=== PATIENT | male | born 1945 | race Caucasian/White ===

== ENCOUNTER → 2016-11-07 | Outpatient (REF) | payer MEDICARE, MEDICAID ==
[2016-11-07 13:27] LABS: BASO % 0.7 % (0.0-1.0); EOS # 0.2 K/mm3 (0.0-0.50); LARGE UNSTAINED CELL # 0.2 K/mm3 (0.0-0.4); LARGE UNSTAINED CELL % 2.2 % (0.0-4.0); LYMPH # 2.3 K/mm3 (1.5-4.5); LYMPH % 32.1 % (24.0-44.0); MEAN CORPUSCULAR HEMOGLOBIN 29.7 pg (27.0-33.0); MEAN CORPUSCULAR HGB CONC 34.4 g/dl (32.0-36.5); MEAN CORPUSCULAR VOLUME 86.4 fl (80.0-96.0); MONO # 0.6 K/mm3 (0.0-0.8); MONO % 7.7 % (0.0-5.0); NEUTROPHILS # 3.9 K/mm3 (1.8-7.7); NEUTROPHILS % 54.3 % (36.0-66.0); PLATELET COUNT, AUTOMATED 239 k/mm3 (150-450); RED CELL DISTRIBUTION WIDTH 12.8 % (11.5-14.5); WHITE BLOOD COUNT 7.1 K/mm3 (4.0-10.0)
[2016-11-07 13:41] LABS: ALBUMIN 3.8 GM/DL (3.2-5.2); ALBUMIN/GLOBULIN RATIO 1.31 (1.00-1.93); BILIRUBIN,TOTAL 0.5 MG/DL (0.2-1.0); CALCIUM LEVEL 9.3 MG/DL (8.8-10.2); CREATININE FOR GFR 1.46 MG/DL (0.70-1.30); GLOMERULAR FILTRATION RATE 50.4 (>42); POTASSIUM SERUM 4.4 MEQ/L (3.5-5.1); TOTAL PROTEIN 6.7 GM/DL (6.4-8.2)
== END ==
LOC: M SFHCADAM 09:07
PROVIDERS: ATTEND Physician Assistant Medical
DX: E11.9 Type 2 diabetes mellitus without complications (principal)

== ENCOUNTER 2017-01-13 16:14 | Emergency (ER) | payer MEDICARE, MEDICAID ==
[~2017-01-13] VITALS: Ht 175.3 cm; Wt 103.9 kg
[2017-01-13 16:15] VITALS: BP 157/69
[2017-01-13] MEDS ORDERED: LYRI75CA (16:27)
[2017-01-13] MEDS ORDERED: METF500T (16:27)
[2017-01-13] MEDS ORDERED: CARV12.5 (16:27)
[2017-01-13] MEDS ORDERED: VITA10002 (16:27)
[2017-01-13] MEDS ORDERED: ADVAIR (16:27)
[2017-01-13] MEDS ORDERED: MONT10TA2 (16:27)
[2017-01-13] MEDS ORDERED: COMBAER6 (16:27)
[2017-01-13] MEDS ORDERED: JANU100T (16:27)
[2017-01-13] MEDS ORDERED: OMEP20CA3 (16:27)
[2017-01-13] MEDS ORDERED: VITA50003 (16:27)
[2017-01-13] MEDS ORDERED: FENO145T (16:27)
[2017-01-13] MEDS ORDERED: FERR325T (16:27)
[2017-01-13] MEDS ORDERED: CETI10TA (16:27)
[2017-01-13] MEDS ORDERED: SIMV40TA2 (16:27)
[2017-01-13] MEDS ORDERED: GLIP10TA13 (16:27)
[2017-01-13] MEDS ORDERED: DIGO0.12 (16:27)
[2017-01-13] MEDS ORDERED: FURO40TA2 (16:27)
[2017-01-13] MEDS ORDERED: NITROFURANTOIN (MACROBID) 100 MG CAP As Ordered ONE (17:38)
[2017-01-13] MEDS ORDERED: PYRI200T5 PO (17:39)
[2017-01-13] MEDS ORDERED: MACR100C3 PO (17:39)
[2017-01-13] MEDS ORDERED: PHENAZOPYRIDINE 100 MG TAB PO ONE (17:45)
[2017-01-13] MEDS ORDERED: NITROFURANTOIN (MACROBID) 100 MG CAP PO ONE (17:45)
== END 2017-01-13 17:47 | disposition home or self-care (01) ==
LOC: M ED 16:54
DX: N39.0 Urinary tract infection, site not specified (principal); R31.9 Hematuria, unspecified; I10 Essential (primary) hypertension; I25.10 Atherosclerotic heart disease of native coronary artery without angina pectoris; E78.00 Pure hypercholesterolemia, unspecified; K43.9 Ventral hernia without obstruction or gangrene; E66.9 Obesity, unspecified; Z95.1 Presence of aortocoronary bypass graft; Z87.891 Personal history of nicotine dependence; Z79.899 Other long term (current) drug therapy; Z79.84 Long term (current) use of oral hypoglycemic drugs; Z79.51 Long term (current) use of inhaled steroids

== ENCOUNTER → 2017-03-14 | Outpatient (REF) | payer MEDICARE, MEDICAID ==
[~2017-03-14] MED LIST: ADVAIR; CARV12.5; CETI10TA; COMBAER6; DIGO0.12; FENO145T; FERR325T; FURO40TA2; GLIP10TA13; JANU100T; LYRI75CA; MACR100C3 PO; METF500T; MONT10TA2; OMEP20CA3; PYRI200T5 PO; SIMV40TA2; VITA10002; VITA50003
[2017-03-14 12:39] LABS: FOLATE 9.3 NG/ML; VITAMIN B12 LEVEL 623 PG/ML
[2017-03-14 12:48] LABS: ALBUMIN 3.3 GM/DL (3.2-5.2); ALKALINE PHOSPHATASE 53 U/L (45-117); ALT/SGPT 19 U/L (12-78); ANION GAP 9 MEQ/L (8-16); AST/SGOT 10 U/L (15-37); BILIRUBIN,TOTAL 0.6 MG/DL (0.2-1.0); BLOOD UREA NITROGEN 26 MG/DL (7-18); CALCIUM LEVEL 8.5 MG/DL (8.8-10.2); CARBON DIOXIDE LEVEL 29 MEQ/L (21-32); CHLORIDE LEVEL 100 MEQ/L (98-107); CHOLESTEROL LEVEL 236 MG/DL (<200); CREATININE FOR GFR 1.18 MG/DL (0.70-1.30); FREE T4 1.01 NG/DL (0.76-1.46); GLOMERULAR FILTRATION RATE > 60.0 (>42); GLUCOSE, FASTING 232 MG/DL (83-110); SODIUM LEVEL 138 MEQ/L (136-145); TOTAL PROTEIN 6.3 GM/DL (6.4-8.2); TRIGLYCERIDES LEVEL 285 MG/DL (<150)
== END ==
LOC: M SFHCADAM 07:41
PROVIDERS: ATTEND Physician Assistant Medical
DX: E11.9 Type 2 diabetes mellitus without complications (principal); E66.01 Morbid (severe) obesity due to excess calories; E55.9 Vitamin D deficiency, unspecified; E53.8 Deficiency of other specified B group vitamins; Z79.899 Other long term (current) drug therapy
CPT/HCPCS: 80053; 80061; 80162; 82043; 82306; 82607; 82746; 83036; 84439; 84443; G0463

== ENCOUNTER → 2017-07-24 | Outpatient (REF) | payer MEDICARE, MEDICAID ==
[~2017-07-24] MED LIST changes: +FERR1TAB8; -FERR325T; -GLIP10TA13; +GLIP1TAB51; -MACR100C3 PO; +MACR100C43 PO; -METF500T; +METF500T13; +PYRI1TAB5 PO; -PYRI200T5 PO; +VITA1CAP40; -VITA50003
[2017-07-24 20:27] LABS: BASO # 0.1 10^3/uL (0.0-0.2); BASO % 0.9 % (0.0-1.0); EOS # 0.4 10^3/uL (0.0-0.50); EOS % 4.2 % (0.0-3.0); IMMATURE GRANULOCYTE % 0.3 % (0-0); LYMPH # 2.7 10^3/uL (1.5-4.5); LYMPH % 29.3 % (24.0-44.0); MEAN CORPUSCULAR HEMOGLOBIN 29.8 pg (27.0-33.0); MEAN CORPUSCULAR HGB CONC 33.9 g/dl (32.0-36.5); MONO # 0.8 10^3/uL (0.0-0.8); MONO % 8.1 % (0.0-5.0); NEUTROPHILS # 5.3 10^3/uL (1.8-7.7); NEUTROPHILS % 57.2 % (36.0-66.0); PLATELET COUNT, AUTOMATED 209 10^3/uL (150-450); RED CELL DISTRIBUTION WIDTH 12.8 % (11.5-14.5); WHITE BLOOD COUNT 9.3 10^3/uL (4.0-10.0)
[2017-07-24 20:40] LABS: VITAMIN B12 LEVEL 1110 PG/ML
[2017-07-24 20:41] LABS: FOLATE 11.1 NG/ML
[2017-07-24 20:47] LABS: ALBUMIN 3.6 GM/DL (3.2-5.2); ALKALINE PHOSPHATASE 52 U/L (45-117); ALT/SGPT 29 U/L (12-78); ANION GAP 7 MEQ/L (8-16); AST/SGOT 13 U/L (15-37); BILIRUBIN,TOTAL 0.5 MG/DL (0.2-1.0); BLOOD UREA NITROGEN 23 MG/DL (7-18); CALCIUM LEVEL 9.2 MG/DL (8.8-10.2); CARBON DIOXIDE LEVEL 31 MEQ/L (21-32); CHLORIDE LEVEL 99 MEQ/L (98-107); CHOLESTEROL LEVEL 271 MG/DL (<200); CREATININE FOR GFR 1.33 MG/DL (0.70-1.30); FERRITIN 337 NG/ML (26-388); FREE T4 0.89 NG/DL (0.76-1.46); GLOMERULAR FILTRATION RATE 56.1 (>42); GLUCOSE, FASTING 322 MG/DL (83-110); MAGNESIUM LEVEL 1.9 MG/DL (1.8-2.4); PERCENT SATURATION 18.8 % (19.7-50.0); POTASSIUM SERUM 3.9 MEQ/L (3.5-5.1); SODIUM LEVEL 137 MEQ/L (136-145); TOTAL IRON BINDING CAPACITY 340 UG/DL (250-450); TOTAL PROTEIN 7.2 GM/DL (6.4-8.2); TRIGLYCERIDES LEVEL 422 MG/DL (<150)
== END ==
LOC: M SFHCADAM 13:40
PROVIDERS: ATTEND Physician Assistant Medical
DX: E11.9 Type 2 diabetes mellitus without complications (principal); E53.8 Deficiency of other specified B group vitamins; N18.3 Chronic kidney disease, stage 3 (moderate)

== ENCOUNTER → 2017-09-01 | Outpatient (REF) | payer MEDICARE, MEDICAID | LOC: M LAB REF 08:06 | PROVIDERS: ATTEND Physician Assistant | DX: J02.9 Acute pharyngitis, unspecified (principal) ==

== ENCOUNTER → 2017-10-30 | Outpatient (REF) | payer MEDICARE, OTHER, MEDICAID ==
[2017-10-30 21:40] LABS: ESTIMATED AVERAGE GLUCOSE 240 MG/DL (60-110)
[2017-10-30 21:43] LABS: ALBUMIN 3.9 GM/DL (3.2-5.2); ALBUMIN/GLOBULIN RATIO 1.18 (1.00-1.93); ALKALINE PHOSPHATASE 46 U/L (45-117); ALT/SGPT 26 U/L (12-78); ANION GAP 11 MEQ/L (8-16); AST/SGOT 18 U/L (7-37); BILIRUBIN,TOTAL 0.5 MG/DL (0.2-1.0); BLOOD UREA NITROGEN 29 MG/DL (7-18); CALCIUM LEVEL 9.2 MG/DL (8.8-10.2); CARBON DIOXIDE LEVEL 25 MEQ/L (21-32); CHLORIDE LEVEL 103 MEQ/L (98-107); CHOLESTEROL LEVEL 200 MG/DL (<200); CHOLESTEROL RISK RATIO 3.174 (<5); CREATININE FOR GFR 1.48 MG/DL (0.70-1.30); FERRITIN 338 NG/ML (26-388); GLOMERULAR FILTRATION RATE 49.5 (>42); GLUCOSE, FASTING 365 MG/DL (83-110); HDL CHOLESTEROL 63 MG/DL (>40); IRON (FE) 83 UG/DL (65-175); LDL CHOLESTEROL 105.4 MG/DL (<100); NON-HDL-C 137 MG/DL; PERCENT SATURATION 21.2 % (19.7-50.0); POTASSIUM SERUM 4.7 MEQ/L (3.5-5.1); SODIUM LEVEL 139 MEQ/L (136-145); TOTAL IRON BINDING CAPACITY 391 UG/DL (250-450); TOTAL PROTEIN 7.2 GM/DL (6.4-8.2); TRIGLYCERIDES LEVEL 158 MG/DL (<150)
[2017-10-30 21:48] LABS: BASO # 0.1 10^3/uL (0.0-0.2); BASO % 0.4 % (0.0-1.0); EOS # 0.1 10^3/uL (0.0-0.50); EOS % 0.6 % (0.0-3.0); HEMATOCRIT 42.4 % (42.0-52.0); HEMOGLOBIN 14.1 g/dl (14.0-18.0); IMMATURE GRANULOCYTE # 0.1 10^3/uL (0-0); IMMATURE GRANULOCYTE % 0.7 % (0-0); LYMPH # 1.8 10^3/uL (1.5-4.5); LYMPH % 14.6 % (24.0-44.0); MEAN CORPUSCULAR HEMOGLOBIN 29.5 pg (27.0-33.0); MEAN CORPUSCULAR HGB CONC 33.3 g/dl (32.0-36.5); MEAN CORPUSCULAR VOLUME 88.7 fl (80.0-96.0); MONO # 0.4 10^3/uL (0.0-0.8); MONO % 2.9 % (0.0-5.0); NEUTROPHILS # 9.9 10^3/uL (1.8-7.7); NEUTROPHILS % 80.8 % (36.0-66.0); PLATELET COUNT, AUTOMATED 282 10^3/uL (150-450); RED BLOOD COUNT 4.78 10^6/uL (4.30-6.10); RED CELL DISTRIBUTION WIDTH 13.1 % (11.5-14.5); WHITE BLOOD COUNT 12.2 10^3/uL (4.0-10.0)
[2017-10-30 22:03] LABS: CREATININE, URINE 26.3 MG/DL; MALB URINE SIEMENS 14.7 MG/L; MAU/CREAT RATIO 55.8 MCG/MG (0.0-30.0)
== END ==
LOC: M SFHCADAM 13:56
DX: E11.9 Type 2 diabetes mellitus without complications (principal); N18.3 Chronic kidney disease, stage 3 (moderate); D50.9 Iron deficiency anemia, unspecified
CPT/HCPCS: 83550

== ENCOUNTER → 2017-11-08 | Outpatient (REF) | payer OTHER ==
[2017-11-08 12:43] LABS: IRON (FE) 72 UG/DL (65-175)
== END ==
LOC: M SFHCADAM 09:59
DX: E11.22 Type 2 diabetes mellitus with diabetic chronic kidney disease (principal); N18.3 Chronic kidney disease, stage 3 (moderate); D50.9 Iron deficiency anemia, unspecified
CPT/HCPCS: 83540

== ENCOUNTER → 2018-03-09 | Outpatient (REF) | payer MEDICARE ==
[2018-03-09 12:58] LABS: ALBUMIN/GLOBULIN RATIO 1.43 (1.00-1.93); ALKALINE PHOSPHATASE 42 U/L (45-117); ALT/SGPT 24 U/L (12-78); ANION GAP 7 MEQ/L (8-16); AST/SGOT 17 U/L (7-37); BILIRUBIN,TOTAL 0.4 MG/DL (0.2-1.0); BLOOD UREA NITROGEN 35 MG/DL (7-18); CARBON DIOXIDE LEVEL 29 MEQ/L (21-32); CHLORIDE LEVEL 106 MEQ/L (98-107); CHOLESTEROL LEVEL 188 MG/DL (<200); CHOLESTEROL RISK RATIO 4.476 (<5); CREATININE FOR GFR 1.62 MG/DL (0.70-1.30); GLOMERULAR FILTRATION RATE 44.6 (>42); GLUCOSE, FASTING 157 MG/DL (70-100); HDL CHOLESTEROL 42 MG/DL (>40); NON-HDL-C 146 MG/DL; POTASSIUM SERUM 4.9 MEQ/L (3.5-5.1); SODIUM LEVEL 142 MEQ/L (136-145); TOTAL PROTEIN 6.8 GM/DL (6.4-8.2); TRIGLYCERIDES LEVEL 225 MG/DL (<150)
[2018-03-09 13:29] LABS: ESTIMATED AVERAGE GLUCOSE 192 MG/DL (60-110); HEMOGLOBIN A1c 8.3 %
== END ==
LOC: M SFHCADAM 09:02
DX: E11.9 Type 2 diabetes mellitus without complications (principal); E66.01 Morbid (severe) obesity due to excess calories
CPT/HCPCS: 80053

== ENCOUNTER → 2018-06-04 | Outpatient (REF) | payer MEDICARE ==
[2018-06-04 12:55] LABS: BASO # 0.1 10^3/uL (0.0-0.2); EOS # 0.4 10^3/uL (0.0-0.50); EOS % 4.9 % (0.0-3.0); HEMATOCRIT 40.9 % (42.0-52.0); HEMOGLOBIN 13.6 g/dl (13.5-17.5); IMMATURE GRANULOCYTE % 0.4 % (0-3.0); LYMPH # 2.8 10^3/uL (1.5-4.5); LYMPH % 35.7 % (24.0-44.0); MEAN CORPUSCULAR HEMOGLOBIN 29.5 pg (27.0-33.0); MEAN CORPUSCULAR HGB CONC 33.3 g/dl (32.0-36.5); MEAN CORPUSCULAR VOLUME 88.7 fl (80.0-96.0); MONO # 0.8 10^3/uL (0.0-0.8); MONO % 9.9 % (0.0-5.0); NEUTROPHILS # 3.7 10^3/uL (1.8-7.7); NEUTROPHILS % 48.1 % (36.0-66.0); PLATELET COUNT, AUTOMATED 259 10^3/uL (150-450); RED BLOOD COUNT 4.61 10^6/uL (4.30-6.10); RED CELL DISTRIBUTION WIDTH 13.1 % (11.5-14.5); WHITE BLOOD COUNT 7.8 10^3/uL (4.0-10.0)
[2018-06-04 13:40] LABS: TOTAL 25(OH) VITAMIN D 42.9 NG/ML (30.0-100.0)
[2018-06-04 16:24] LABS: ESTIMATED AVERAGE GLUCOSE 177 MG/DL (60-110); HEMOGLOBIN A1c 7.8 %
[2018-06-04 16:37] LABS: ALBUMIN 3.7 GM/DL (3.2-5.2); ALBUMIN/GLOBULIN RATIO 1.09 (1.00-1.93); ALKALINE PHOSPHATASE 39 U/L (45-117); ALT/SGPT 24 U/L (12-78); ANION GAP 8 MEQ/L (8-16); AST/SGOT 17 U/L (7-37); BILIRUBIN,TOTAL 0.4 MG/DL (0.2-1.0); BLOOD UREA NITROGEN 35 MG/DL (7-18); CALCIUM LEVEL 8.9 MG/DL (8.8-10.2); CARBON DIOXIDE LEVEL 28 MEQ/L (21-32); CHLORIDE LEVEL 105 MEQ/L (98-107); CHOLESTEROL LEVEL 214 MG/DL (<200); CHOLESTEROL RISK RATIO 5.095 (<5); CREATININE FOR GFR 1.98 MG/DL (0.70-1.30); FREE T4 0.96 NG/DL (0.76-1.46); GLOMERULAR FILTRATION RATE 35.4 (>42); GLUCOSE, FASTING 136 MG/DL (70-100); HDL CHOLESTEROL 42 MG/DL (>40); LDL CHOLESTEROL 106.8 MG/DL (<100); NON-HDL-C 172 MG/DL; POTASSIUM SERUM 4.3 MEQ/L (3.5-5.1); SODIUM LEVEL 141 MEQ/L (136-145); TOTAL PROTEIN 7.1 GM/DL (6.4-8.2); TRIGLYCERIDES LEVEL 326 MG/DL (<150)
== END ==
LOC: M SFHCADAM 10:01
DX: E53.8 Deficiency of other specified B group vitamins (principal); E78.4 Other hyperlipidemia; D50.9 Iron deficiency anemia, unspecified; E55.9 Vitamin D deficiency, unspecified; E11.22 Type 2 diabetes mellitus with diabetic chronic kidney disease
CPT/HCPCS: 84443

== ENCOUNTER → 2018-10-04 | Outpatient (REF) | payer MEDICARE ==
[2018-10-04 13:47] LABS: ALBUMIN 3.7 GM/DL (3.2-5.2); ALBUMIN/GLOBULIN RATIO 1.09 (1.00-1.93); ALKALINE PHOSPHATASE 48 U/L (45-117); ALT/SGPT 21 U/L (12-78); ANION GAP 5 MEQ/L (8-16); AST/SGOT 14 U/L (7-37); BILIRUBIN,TOTAL 0.5 MG/DL (0.2-1.0); BLOOD UREA NITROGEN 26 MG/DL (7-18); CALCIUM LEVEL 8.6 MG/DL (8.8-10.2); CARBON DIOXIDE LEVEL 31 MEQ/L (21-32); CHLORIDE LEVEL 102 MEQ/L (98-107); CHOLESTEROL LEVEL 196 MG/DL (<200); CREATININE FOR GFR 1.44 MG/DL (0.70-1.30); GLOMERULAR FILTRATION RATE 50.9 (>42); GLUCOSE, FASTING 226 MG/DL (70-100); HDL CHOLESTEROL 46 MG/DL (>40); LDL CHOLESTEROL 111 MG/DL (<100); NON-HDL-C 150 MG/DL; POTASSIUM SERUM 4.5 MEQ/L (3.5-5.1); SODIUM LEVEL 138 MEQ/L (136-145); TOTAL PROTEIN 7.1 GM/DL (6.4-8.2); TRIGLYCERIDES LEVEL 193 MG/DL (<150)
[2018-10-04 13:55] LABS: TOTAL 25(OH) VITAMIN D 37.8 NG/ML (30.0-100.0)
[2018-10-04 14:06] LABS: ESTIMATED AVERAGE GLUCOSE 171 MG/DL (60-110); HEMOGLOBIN A1c 7.6 %
== END ==
LOC: M SFHCADAM 11:10
DX: E11.22 Type 2 diabetes mellitus with diabetic chronic kidney disease (principal); N18.3 Chronic kidney disease, stage 3 (moderate); I50.32 Chronic diastolic (congestive) heart failure; E55.9 Vitamin D deficiency, unspecified
CPT/HCPCS: 80053

== ENCOUNTER → 2019-10-14 | Outpatient (REF) | payer MEDICARE ==
[~2019-10-14] MED LIST changes: +CYAN100049; -FENO145T; +FENO145T13; +GLIP10TA18; -GLIP1TAB51; +OMEP-172; -OMEP20CA3; -SIMV40TA2; +SIMV40TA20; -VITA10002; -VITA1CAP40; +VITA50005
[2019-10-14 13:44] LABS: BASO # 0.1 10^3/uL (0.0-0.2); BASO % 0.9 % (0.0-1.0); EOS # 0.2 10^3/uL (0.0-0.5); EOS % 2.6 % (0.0-3.0); HEMATOCRIT 39.6 % (42.0-52.0); HEMOGLOBIN 12.5 g/dl (13.5-17.5); LYMPH # 2.8 10^3/uL (1.5-5.0); LYMPH % 33.2 % (24.0-44.0); MEAN CORPUSCULAR HEMOGLOBIN 28.7 pg (27.0-33.0); MEAN CORPUSCULAR HGB CONC 31.6 g/dl (32.0-36.5); MEAN CORPUSCULAR VOLUME 90.8 fl (80.0-96.0); MONO # 0.9 10^3/uL (0.0-0.8); MONO % 11.2 % (0.0-5.0); NEUTROPHILS # 4.4 10^3/uL (1.5-8.5); NEUTROPHILS % 51.6 % (36.0-66.0); PLATELET COUNT, AUTOMATED 230 10^3/uL (150-450); RED BLOOD COUNT 4.36 10^6/uL (4.30-6.10); WHITE BLOOD COUNT 8.4 10^3/uL (4.0-10.0)
[2019-10-14 14:01] LABS: HEMOGLOBIN A1c 6.5 %
[2019-10-14 14:40] LABS: ALBUMIN 3.8 GM/DL (3.2-5.2); ALT/SGPT 17 U/L (12-78); BILIRUBIN,TOTAL 0.5 MG/DL (0.2-1.0); BLOOD UREA NITROGEN 42 MG/DL (7-18); CALCIUM LEVEL 9.1 MG/DL (8.8-10.2); CARBON DIOXIDE LEVEL 32 MEQ/L (21-32); CHLORIDE LEVEL 103 MEQ/L (98-107); CHOLESTEROL LEVEL 205 MG/DL (<200); CREATININE FOR GFR 1.71 MG/DL (0.70-1.30); FERRITIN 154 NG/ML (26-388); FOLATE > 24.0 NG/ML; FREE T4 0.94 NG/DL (0.76-1.46); GLOMERULAR FILTRATION RATE 41.6 (>42); GLUCOSE, FASTING 83 MG/DL (70-100); HDL CHOLESTEROL 48 MG/DL (>40); IRON (FE) 71 UG/DL (65-175); LDL CHOLESTEROL 121 MG/DL (<100); MAGNESIUM LEVEL 2.3 MG/DL (1.8-2.4); NON-HDL-C 157 MG/DL; PERCENT SATURATION 16.7 % (19.7-50.0); POTASSIUM SERUM 4.6 MEQ/L (3.5-5.1); SODIUM LEVEL 141 MEQ/L (136-145); TOTAL 25(OH) VITAMIN D 27.1 NG/ML (30.0-100.0); TOTAL IRON BINDING CAPACITY 425 UG/DL (250-450); TOTAL PROTEIN 7.1 GM/DL (6.4-8.2); TRIGLYCERIDES LEVEL 180 MG/DL (<150); VITAMIN B12 LEVEL 235 PG/ML
== END ==
LOC: M SFHCADAM 10:16
PROVIDERS: ATTEND Physician Assistant Medical
DX: E11.22 Type 2 diabetes mellitus with diabetic chronic kidney disease (principal); N18.3 Chronic kidney disease, stage 3 (moderate); E53.8 Deficiency of other specified B group vitamins; D50.9 Iron deficiency anemia, unspecified

== ENCOUNTER → 2019-10-21 | Outpatient (REF) | payer MEDICARE ==
[~2019-10-21] MED LIST changes: -FENO145T13; +FENO145T7; -OMEP-172; +OMEP1CAP73
[2019-10-21 20:02] LABS: CALCIUM LEVEL 8.8 MG/DL (8.8-10.2); CREATININE FOR GFR 1.45 MG/DL (0.70-1.30); GLOMERULAR FILTRATION RATE 50.4 (>42); POTASSIUM SERUM 5.5 MEQ/L (3.5-5.1)
== END ==
LOC: M SFHCADAM 15:02
PROVIDERS: ATTEND Physician Assistant Medical
DX: I50.9 Heart failure, unspecified (principal)
CPT/HCPCS: 80048; 83880; G0463

== ENCOUNTER → 2019-10-24 | Outpatient (REF) | payer MEDICARE ==
[~2019-10-24] MED LIST changes: +FENO145T13; -FENO145T7; +OMEP-172; -OMEP1CAP73
[2019-10-24 12:36] LABS: CREATININE FOR GFR 1.9 MG/DL (0.70-1.30); GLOMERULAR FILTRATION RATE 36.9 (>42); POTASSIUM SERUM 3.8 MEQ/L (3.5-5.1)
== END ==
LOC: M SFHCADAM 08:30
PROVIDERS: ATTEND Physician Assistant Medical
DX: I50.9 Heart failure, unspecified (principal)

== ENCOUNTER → 2019-11-06 | Outpatient (CLI) | payer MEDICARE ==
[~2019-11-06] MED LIST changes: -FENO145T13; +FENO145T7; -OMEP-172; +OMEP1CAP73
== END ==
LOC: M CARPUL 08:35
PROVIDERS: ATTEND Physician Assistant Medical
DX: I50.9 Heart failure, unspecified (principal)

== ENCOUNTER 2020-10-06 12:55 | Inpatient (IN) | payer MEDICARE ==
[~2020-10-06] VITALS: Ht 170.2 cm; Wt 109.1 kg
[~2020-10-06 12:55] MED LIST changes: -CARV12.5; +CARV12.5 PO; -CETI10TA; +CETI10TA PO; -COMBAER6; +COMBAER6 INH; -CYAN100049; +CYAN100049 PO; -DIGO0.12; +DIGO0.12 PO; -FENO145T7; +FENO145T7 PO; -FERR1TAB8; +FERR1TAB8 PO; -FURO40TA2; +FURO40TA2 PO; -GLIP10TA18; +GLIP10TA18 PO; -JANU100T; +JANU100T PO; -LYRI75CA; +LYRI75CA PO; -MONT10TA2; +MONT5TAB2 PO; -OMEP1CAP73; +OMEP1CAP73 PO; -SIMV40TA20; +SIMV40TA20 PO
[2020-10-06 13:59] LABS: BASO % 0.2 % (0.0-1.0); HEMATOCRIT 40.4 % (42.0-52.0); HEMOGLOBIN 13.1 g/dl (13.5-17.5); LYMPH # 1.1 10^3/uL (1.5-5.0); LYMPH % 24.1 % (24.0-44.0); MEAN CORPUSCULAR HEMOGLOBIN 27.8 pg (27.0-33.0); MEAN CORPUSCULAR HGB CONC 32.4 g/dl (32.0-36.5); MEAN CORPUSCULAR VOLUME 85.8 fl (80.0-96.0); MONO # 0.6 10^3/uL (0.0-0.8); MONO % 12.8 % (0.0-5.0); NEUTROPHILS # 2.8 10^3/uL (1.5-8.5); NEUTROPHILS % 62.5 % (36.0-66.0); PLATELET COUNT, AUTOMATED 207 10^3/uL (150-450); RED BLOOD COUNT 4.71 10^6/uL (4.30-6.10); WHITE BLOOD COUNT 4.5 10^3/uL (4.0-10.0)
[2020-10-06] MEDS ORDERED: methylPREDNISolone 125MG 2ML VIAL IV ONE (14:00)
[2020-10-06] MEDS ORDERED: ACETAMINOPHEN TAB 650MG DOSE (2X325MG) PO ONE (14:00)
[2020-10-06 14:22] LABS: ALBUMIN 3.3 GM/DL (3.2-5.2); ALT/SGPT 23 U/L (12-78); BILIRUBIN,TOTAL 0.5 MG/DL (0.2-1.0); BLOOD UREA NITROGEN 36 MG/DL (7-18); C REACTIVE PROTEIN QUANTITATIV 6.75 MG/DL (0.00-0.30); CARBON DIOXIDE LEVEL 29 MEQ/L (21-32); CHLORIDE LEVEL 100 MEQ/L (98-107); CK-MB VALUE MASS 1.4 NG/ML (<3.6); CPK CREATINE PHOSPHOKINASE 83 U/L (39-308); CREATININE FOR GFR 1.57 MG/DL (0.70-1.30); FERRITIN 456 NG/ML (26-388); GLOMERULAR FILTRATION RATE 45.8 (>42); GLUCOSE, FASTING 129 MG/DL (70-100); LDH LACTATE DEHYDROGENASE 225 U/L (87-241); MB/CK RELATIVE INDEX 1.69 (< OR =4); POTASSIUM SERUM 4.2 MEQ/L (3.5-5.1); SODIUM LEVEL 135 MEQ/L (136-145); TROPONIN I 0.07 NG/ML (< 0.10)
[2020-10-06] MEDS: COMBIVENT RESPIMAT 100-20MCG INHALER 4GM INH SCH ×3 (14:40→15:45)
[2020-10-06] MEDS ORDERED: ASPI81CH33 PO (15:04)
--- NOTE | 2020-10-06 15:24 | REP ---
INDICATION: Coronavirus workup. COMPARISON: PA and lateral chest dated 02/03/2014 and PA and lateral chest dated 04/05/2009. TECHNIQUE: Single AP view of the chest performed portably with the patient upright. FINDINGS: There are no focal infiltrates. There are no pleural effusions. The lung almaraz are otherwise clear and unchanged. Cardiac size is normal. There are sternotomy wires, unchanged. The jose, mediastinum, and skeletal structures are on remarkable. IMPRESSION: There are no acute cardiopulmonary findings. <Electronically signed by Brady Mazariegos > 10/06/20 [id number]
[2020-10-06] MEDS ORDERED: TIOT18INH INH (15:29)
[2020-10-06] MEDS ORDERED: REST0.05 OU (15:29)
[2020-10-06] MEDS ORDERED: METF10004 PO (15:29)
[2020-10-06] MEDS ORDERED: DIGO0.123 PO (15:29)
[2020-10-06] MEDS ORDERED: ASPI81TA27 PO (15:29)
[2020-10-06] MEDS ORDERED: BASA100I SC (15:29)
[2020-10-06] MEDS ORDERED: ADV500INH INH (15:29)
[2020-10-06] MEDS ORDERED: PATIENT COMMENT (15:31)
[2020-10-06] MEDS ORDERED: GLUCOSE 4GM CHEW TABLET PO PRN (17:00)
[2020-10-06] MEDS ORDERED: DEXTROSE 50% 50 ML SYRINGE IV PRN (17:00)
[2020-10-06] MEDS ORDERED: GLUCAGON INJ 1MG VIAL SC PRN (17:00)
[2020-10-06 17:26] LABS: DIGOXIN LEVEL 0.1 NG/ML (0.5-2.0); TRIGLYCERIDES LEVEL 151 MG/DL (<150)
[2020-10-06] MEDS ORDERED: HumaLOG INSULIN (NovoLOG) PER UNIT SC SCH ×2 (17:30→21:00)
[2020-10-06 17:33] LABS: HEPATITIS B SURFACE ANTIGEN NEGATIVE (NEGATIVE)
[2020-10-06 18:01] LABS: HIV 1&2 SCREEN CENTAUR NEGATIVE (NEGATIVE)
--- NOTE | 2020-10-06 18:05 | CCN ---
CRITICAL CARE NOTE DATE: 10/06/2020 I was called to the emergency department by the hospitalist to evaluate this 75-year-old male with increasing dyspnea and altered mental status. He has been ill for the past 2 days, quarantined with his granddaughter due to COVID exposure. There is a significant past medical history of advanced obstructive airways disease secondary to remote smoking, obesity, coronary artery diseases, status post bypass grafting surgery in 1998, hyperlipidemia, gastroesophageal reflux, aortic valve replacement, and pacemaker placement. At bedside, his temperature is 99.8, pulse rate 73, respirations 24, blood pressure 148/65. He is on 2 liters of oxygen with a saturation of 95%. HEENT: He is awake and responsive, slightly confused. Oral mucosa is pink. There is no obvious venous distention. Heart sounds are regular, monitor showing a paced rhythm. Breath sounds are diminished, and the expiratory phase is prolonged. Abdomen is soft and obese. The extremities show no significant edema. DIAGNOSTIC STUDIES: White count is 4.5, hemoglobin 13.1, hematocrit 40.4, platelet count 207,000. Differential white cell count shows 62% neutrophils. His sodium is 135, potassium 4.2, chloride 100, CO2 of 26, BUN is 36, creatinine is 1.57, glucose 129. Ferritin is 456. His AST is 21, ALT 23, alkaline phosphatase 44. LDH is 225. Troponin 0.07. C-reactive protein is 6.75. His albumin is 3.3. D-dimer is 942. Chest imaging shows evidence of previous sternotomy, a large heart size, prominence in the interstitium, but no focal infiltrates are appreciated. COVID testing was found positive. The primary problem requiring critical attention is acute on chronic hypoxic respiratory failure. I will arrange for an arterial blood gas to determine if CO2 elevation is present, which could be contributing to his confusion. If so, he will require noninvasive ventilation and admission to the COVID intensive care unit (ICU). COVID pneumonia: I agree with steroids. He is a candidate for remdesivir, and we will trend his inflammatory markers to determine if he would benefit from IL-6 inhibition. Hypercoagulable state secondary to COVID pneumonia: I would suggest weight-based Lovenox. Chronic obstructive pulmonary disease: The patient will receive beta agonists and steroids. Chronic renal failure: The creatinine is elevated but about at his baseline when compared to previous studies. It will be necessary to compensate with his drug dosing. I have discussed the case with the attending physician and the emergency department staff. Pending results of the arterial blood gas, he may be admitted to the COVID unit. Close monitoring will be necessary in any regard due to his high risk for deterioration. One hour and 32 minutes was spent in the provision of bedside critical care and coordination excluding any time used for the performance of procedures. DIONNA
[2020-10-06] MEDS: ALBUTEROL 90 MCG/ACT 8GM HFA INHALER INH SCH ×2 (18:09→23:00)
[2020-10-06] MEDS: ADVAIR HFA 230/21MCG INHALER INH SCH (18:09)
[2020-10-06 18:16] LABS: ABG BASE EXCESS 3.2 (-2.0-2.0); ABG HCO3 26.7 MEQ/L (22.0-26.0); ABG O2 SATURATION 98.7 % (95.0-99.0); ABG PARTIAL PRESSURE CO2 36.9 mmHg (35.0-45.0); ABG PARTIAL PRESSURE O2 115.3 mmHg (75.0-100.0); ABG STANDARD HCO3 27.4 MEQ/L (22.0-26.0); ABG TOTAL CO2 27.8 MEQ/L (23.0-31.0); ABG pH (ARTERIAL) 7.477 UNITS (7.350-7.450)
--- NOTE | 2020-10-06 19:58 | HPEPDOC ---
General Date of Admission Oct 06, 2020 at 16:41 Date of Service: Oct 06, 2020 Chief Complaint The patient is a 75-year-old male admitted with a reason for visit of Covid- 19/Acute Metabolic Encephalopathy. Source: Patient, RN/MD History of Present Illness 75 year old male with multiple medical comorbidities including COPD, CAD, valvular heart disease, obesity on 2 l oxygen at home as needed, reports does not use it every day presented to the ED for increasing SOB, wheezing for the past 2 days. He has been using his inhalors, nebs and oxygen at home but continued to have wheezing and SOB on mild exertion so came to the ED at the insistence of his . His grand daughter was diagnosed with COVID on 09/29/20. Grand daughter got it from school. He and has been in quarantine and taking care of grand daughter. In the ED he was found to be COVID positive. He was also febrile to 101.3 in the ED and confused. He was admitted for COVID -19 pneumonia/pneumonitis, Acute metabolic encephalopathy, COPD exacerbation. Home Medications Scheduled Aspirin (Aspirin EC) 81 Mg Tablet.dr, 81 MG PO DAILY, (Reported) Carvedilol (Carvedilol) 12.5 Mg Tab, 12.5 MG PO BID, (Reported) Cetirizine HCl (Cetirizine HCl) 10 Mg Tab, 10 MG PO DAILY, (Reported) Cyanocobalamin (Vitamin B-12) (Vitamin B-12) 1,000 Mcg Tab, 1,000 MCG PO DAILY, (Reported) Cyclosporine (Restasis) 0.05% Droperette, 1 DROP OU BID, (Reported) Digoxin (Digoxin) 125 Mcg Tablet, 125 MCG PO DAILY, (Reported) Fenofibrate Nanocrystallized (Fenofibrate) 145 Mg Tab, 145 MG PO DAILY, (Reported) Ferrous Sulfate (Ferrous Sulfate) 325 Mg Tab, 325 MG PO TID, (Reported) Furosemide (Furosemide) 40 Mg Tab, 40 MG PO DAILY, (Reported) Glipizide (Glipizide ER) 10 Mg Tab, 10 MG PO QHS, (Reported) Insulin Glargine,Hum.rec.anlog (Basaglar Kwikpen U-100) 100 Unit/1 Ml Insuln.pen, 24 UNIT SC DAILY, (Reported) Metformin HCl (Metformin HCl) 1,000 Mg Tablet, 1,000 MG PO BID, (Reported) Montelukast Sodium (Montelukast Sodium) 10 Mg Tab, 10 MG PO QHS, (Reported) Omeprazole (Omeprazole) 20 Mg Cap, 20 MG PO DAILY, (Reported) Prednisone (Prednisone) 10 Mg Tablet, 10 MG PO TAPER Take 4 tabs daily x 3 days, then 3 tabs daily x 3 days, then 2 tabs daily x 3 days, then 1 tab daily x 3 days and stop Pregabalin (Lyrica) 75 Mg Cap, 75 MG PO DAILY, (Reported) Salmeterol/Fluticasone (Advair 500-50 Diskus) 1 Each Blst.w.dev, 1 PUFF INH BID, (Reported) Simvastatin (Simvastatin) 40 Mg Tab, 40 MG PO QHS, (Reported) Sitagliptin Phosphate (Januvia) 100 Mg Tab, 100 MG PO DAILY, (Reported) Tiotropium [place] Monohydrate (Spiriva) 18 Mcg Cap.w.dev, 1 INHALATION INH DAILY, (Reported) Scheduled PRN Ipratropium/Albuterol Sulfate (Combivent Respimat 20-100 Mcg) 1 Aer Aer, 1 PUFF INH QID PRN for SHORTNESS OF BREATH, (Reported) Miscellaneous Medications [Patient Comment] , (Reported) MED LIST OBTAINED FROM EXT MED HX AND LAST MD VISIT. FAMILY UNSURE WHEN PATIENT LAST TOOK MEDICATIONS. Allergies Coded Allergies: No Known Allergies (Verified , 04/28/03) Past Medical History Medical History COPD /KAYLEY 06/05 - FEV 1 1.81 MODERATE PUL HYPERTENSION CAD S/P CABG 1998 DIASTOLIC CHF S/P AORTIC VALVE REPLACEMENT - BIOPROSTHETIC , MILD MR, MILD TR, pacemaker leads in right chamber PACEMAKER MORBID OBESITY Hypertensive Heart Disease HYPERLIPIDEMIA GERD CHRONIC RESPIRATORY FAILURE, CHRONIC O2 2LPM, as needed. VIT D DEF IRON DEF ANEMIA B12 DEF CKD3 DM2 ED CHELY DERM NONCOMPLIANCE Surgical History Umbilical Hernia repair in 1988 Multiple incisional hernia repair 2008 CABG X 2 1999 CATARACTS 2016 Family History FATHER: 67 YRS, EMPHYSEMA MOTHER: 47 YRS, MASSIVE MA, HTN SIBLINGS: REGINA , CAD, DIALYSIS, BLEED ON THE BRAIN. OLDEST SISTER FROM LYMPHOMA, SISTER FROM COPD BROTHER FROM LUNG CANCER - RELATED TO ASBESTOS EXPOSURE. Social History * Smoker: former Smoker Alcohol: rarely Drugs: denies A-FIB/CHADSVASC A-FIB History Current/History of A-Fib/PAF?: No Review of Systems Constitutional: Reports: Fever, Malaise, Fatigue Eyes: Denies: Pain, Vision change ENT: Denies: Head Aches, Ear Pain, Dysphagia Skin: Denies: Rash, Lesions, Breakdown Pulmonary: Reports: Dyspnea, Cough Cardiovascular: Denies: Chest Pain, Palpitations, Orthopnea, Paroxysmal Noc. Dyspnea, Lt Headedness Gastrointestinal: Denies: Nausea, Vomiting, Abdominal Pain, Diarrhea Genitourinary: Denies: Dysuria, Frequency, Incontinence, Retention Hematologic: Denies: Bruising, Bleeding Excessively Musculoskeletal: Reports: Back Pain Neurological: Reports: Confusion; Denies: Weakness, Numbness, Change in speech Physical Examination General Exam: Positive: Alert, No Acute Distress Eye Exam: Positive: PERRLA, Conjunctiva & lids normal, EOMI; Negative: Sclera icteric ENT Exam: Positive: Atraumatic, Mucous membr. moist/pink, Pharynx Normal Neck Exam: Positive: Supple; Negative: JVD, thyromegaly Chest Exam: Positive: Rhonchi, Wheezing, Diminished Heart Exam: Positive: Rate Normal, Regular Rhythm, Normal S1, Normal S2; Negative: Murmurs, Rubs Abdomen Exam: Positive: Normal bowel sounds, Soft; Negative: Tenderness, Hepatospenomegaly Extremity Exam: Positive: Normal pulses; Negative: Clubbing, Cyanosis, Edema Skin Exam: Positive: Nl turgor and temperature; Negative: Breakdown, Lesion Neuro Exam: Positive: Normal Speech Vital Signs Vital Signs Date Time Temp Pulse Resp B/P (MAP) Pulse Ox O2 Delivery O2 Flow Rate FiO2 10/06/20 18:45 97.9 57 22 167/83 (111) 96 Nasal Cannula 2.0 Laboratory Data Labs 24H Laboratory Tests 2 10/06/20 13:31: Immature Granulocyte % (Auto) 0.4, Neutrophils (%) (Auto) 62.5, Lymphocytes (%) (Auto) 24.1, Monocytes (%) (Auto) 12.8H, Eosinophils (%) (Auto) 0.0, Basophils (%) (Auto) 0.2, Neutrophils # (Auto) 2.8, Lymphocytes # (Auto) 1.1L, Monocytes # (Auto) 0.6, Eosinophils # (Auto) 0.0, Basophils # (Auto) 0.0, Nucleated Red Blood Cells % (auto) 0.0, D-Dimer, Quantitative 942.27H, Anion Gap 6L, Glomerular Filtration Rate 45.8, Lactic Acid Level 1.1, Calcium Level 9.0, Ferritin 456H, Total Bilirubin 0.5, Aspartate Amino Transf (AST/SGOT) 21, Alanine Aminotransferase (ALT/SGPT) 23, Alkaline Phosphatase 44L, Lactate Dehydrogenase 225, Total Creatine Kinase 83, Creatine Kinase MB 1.4, Creatine Kinase MB Relative Index 1.69, Troponin I 0.07, C-Reactive Protein, Quantitative 6.75H, Total Protein 7.0, Albumin 3.3, Albumin/Globulin Ratio 0.9, Triglycerides Level 151H, Digoxin Level 0.1L, Hepatitis B Surface Antigen NEGATIVE, HIV Antigen/Antibody Combo Qual NEGATIVE 10/06/20 17:44: 10/06/20 17:51: Blood Gas Bicarbonate Standard 27.4H, Arterial Blood pH 7.477H, Arterial Blood Partial Pressure CO2 36.9, Arterial Blood Partial Pressure O2 115.3H, Arterial Blood Total CO2 27.8, Arterial Blood HCO3 26.7H, Arterial Blood Base Excess 3.2H, Arterial Blood Oxygen Saturation 98.7 10/06/20 18:39: Bedside Glucose (Misc Panel) 185H CBC/BMP Laboratory Tests 10/06/20 13:31 Microbiology Microbiology 10/06/20 Blood Culture, Received Pending 10/06/20 Blood Culture, Received Pending 10/06/20 Respiratory Virus Panel (PCR) ([facility]) - Final, Complete SARS-CoV-2 (COVID 19) Assessment/Plan 75 year old male with multiple medical comorbidities including COPD, CAD, valvular heart disease, obesity on 2 l oxygen at home as needed, reports does not use it every day presented to the ED for increasing SOB, wheezing for the past 2 days. He has been using his inhalors, nebs and oxygen at home but continued to have wheezing and SOB on mild exertion so came to the ED at the insistence of his . His grand daughter was diagnosed with COVID on 09/29/20. Grand daughter got it from school. He and has been in quarantine and taking care of grand daughter. In the ED he was found to be COVID positive. He was also febrile to 101.3 in the ED and confused. He was admitted for COVID -19 pneumonia/pneumonitis, Acute metabolic encephalopathy, COPD exacerbation. COVID -19 Pneumonia/pneumonitis droplet and contact isolation continue ASA, methyl pred , Lovenox BID Oxygen supplementation to maintain spo2 88% to 92 % Remdesevir Pulmonary consult appretiated. Daily ferritin, crp, fibrinogen, Lfts, CBC, Basic, procalcitonin. HIV and hepatitis profile negative. Acute metabolic encephalopathy probably due to Fever ABG did not show any CO2 retention. Now resolved with resolution of fever. COPD exacerbation due to COVID-19 advair, spiriva, albuterol , methyl pred, oxygen. singulair Allergies cetrizine, singulair CAD/ CABG continue asa, statin, coreg Hyperlipidemia statin, fenofibrate Diastolic CHF Not in any fluid overload at present. on digoxin, coreg, Lasix Diabetes continue januvia, lispro sliding scale, levemir insulin. will hold glipizide and metformin hypoglycemic protocol. FS Ac and HS CKD stage 3 creatinine at baseline. s/p AVR by bioprosthetic valve. Iron def and Vit B12 def will restart on discharge. Plan / VTE VTE Prophylaxis Ordered?: Yes COLLIN WILHELM MD Oct 06, 2020 19:58
[2020-10-06] MEDS ORDERED: glipiZIDE XL 5 MG TABCR PO SCH (21:00)
[2020-10-06 21:30] VITALS: BP 177/75
[2020-10-06] MEDS: SIMVASTATIN 40 MG TAB PO SCH (21:54)
[2020-10-06] MEDS: MONTELUKAST 10 MG TAB PO SCH (21:54)
[2020-10-06 21:55] VITALS: BP 155/72
[2020-10-06] MEDS: methylPREDNISolone 40MG 1ML VIAL IV SCH (21:55)
[2020-10-06] MEDS: CARVedilol 12.5 MG TAB PO SCH ×2 (21:55→22:47)
[2020-10-06] MEDS: ENOXAPARIN 60MG/0.6ML SYRINGE (J1650 PER 10MG) SC SCH (21:56)
[2020-10-06] MEDS: amLODIPine 10 MG TAB PO SCH (22:42)
[2020-10-06] MEDS: HumaLOG INSULIN (NovoLOG) PER UNIT SC SCH (22:42)
[2020-10-06] MEDS ORDERED: SODIUM CHLORIDE 0.9% INJ 10 ML SYR IV ONE (23:00)
[2020-10-07] VITALS: O2SAT 96
[2020-10-07] MEDS: methylPREDNISolone 40MG 1ML VIAL IV SCH ×4 (03:56→21:14)
[2020-10-07] MEDS: ALBUTEROL 90 MCG/ACT 8GM HFA INHALER INH SCH ×5 (03:57→20:27)
[2020-10-07 04:00] VITALS: BP_SYST 129; BP_SYST 146; BP_DIAS 63; BP_DIAS 70; O2SAT 96
[2020-10-07 06:10] LABS: HEMATOCRIT 38.1 % (42.0-52.0); HEMOGLOBIN 12.8 g/dl (13.5-17.5); LYMPH # 0.7 10^3/uL (1.5-5.0); LYMPH % 37.2 % (24.0-44.0); MEAN CORPUSCULAR HEMOGLOBIN 28.7 pg (27.0-33.0); MEAN CORPUSCULAR HGB CONC 33.6 g/dl (32.0-36.5); MEAN CORPUSCULAR VOLUME 85.4 fl (80.0-96.0); MONO # 0.1 10^3/uL (0.0-0.8); MONO % 7.1 % (0.0-5.0); NEUTROPHILS % 55.7 % (36.0-66.0); PLATELET COUNT, AUTOMATED 175 10^3/uL (150-450); RED BLOOD COUNT 4.46 10^6/uL (4.30-6.10)
[2020-10-07 06:25] LABS: WHITE BLOOD COUNT 1.8 10^3/uL (4.0-10.0)
[2020-10-07 06:29] LABS: PROTHROMBIN TIME 13.4 SECONDS (12.5-14.3)
[2020-10-07 06:30] LABS: PARTIAL THROMBOPLASTIN TIME 41.5 SECONDS (24.2-38.5)
[2020-10-07 06:37] LABS: ALBUMIN 2.7 GM/DL (3.2-5.2); BILIRUBIN,DIRECT 0.2 MG/DL (0.0-0.2); BILIRUBIN,TOTAL 0.4 MG/DL (0.2-1.0); CALCIUM LEVEL 8.1 MG/DL (8.8-10.2); CREATININE FOR GFR 1.54 MG/DL (0.70-1.30); GLOMERULAR FILTRATION RATE 46.9 (>42); MAGNESIUM LEVEL 2.2 MG/DL (1.8-2.4); POTASSIUM SERUM 4.3 MEQ/L (3.5-5.1)
[2020-10-07] MEDS: ADVAIR HFA 230/21MCG INHALER INH SCH ×2 (08:00→20:27)
[2020-10-07] MEDS: ENOXAPARIN 60MG/0.6ML SYRINGE (J1650 PER 10MG) SC SCH ×2 (08:31→21:14)
[2020-10-07] MEDS: LEVEMIR (INSULIN DETEMIR) 1 UNITS/0.01ML SC SCH (08:32)
[2020-10-07] MEDS: HumaLOG INSULIN (NovoLOG) PER UNIT SC SCH ×4 (08:32→20:54)
[2020-10-07] MEDS: CYANOCOBALAMIN 500 MCG TAB PO SCH (08:33)
[2020-10-07] MEDS: CETIRIZINE (ZyrTEC) 10 MG TAB PO SCH (08:33)
[2020-10-07] MEDS: SITagliptin 50 MG TAB (JANUVIA) PO SCH (08:33)
[2020-10-07] MEDS: OMEPRAZOLE 20 MG CAP PO SCH (08:33)
[2020-10-07] MEDS: FENOFIBRATE 145 MG TAB (TRICOR) PO SCH (08:33)
[2020-10-07] MEDS: FUROSEMIDE 40 MG TAB PO SCH (08:35)
[2020-10-07] MEDS: ASPIRIN 81 MG ENTERIC TAB PO SCH (08:35)
[2020-10-07] MEDS: DIGOXIN 0.125 MG TAB PO SCH (08:36)
[2020-10-07] MEDS: CARVedilol 12.5 MG TAB PO SCH ×2 (08:39→21:15)
[2020-10-07] MEDS ORDERED: ENOXAPARIN 40MG/0.4ML SYRINGE (J1650 PER 10MG) SC SCH (09:00)
[2020-10-07] MEDS: TIOTROPIUM INHALER/CAPSULE (SPIRIVA) INH SCH (09:00)
[2020-10-07 11:30] VITALS: BP 138/66
[2020-10-07 17:52] LABS: APPEARANCE, URINE HAZY (CLEAR); BACTERIA, URINE AUTO NEGATIVE (NEGATIVE); BILIRUBIN, URINE AUTO NEGATIVE (NEGATIVE); BLOOD, URINE BLOOD NEGATIVE (NEGATIVE); COLOR, URINE YELLOW (YELLOW); GLUCOSE, URINE (UA) AUTO 1+ mg/dL (NEGATIVE); KETONE, URINE AUTO NEGATIVE (NEGATIVE); LEUKOCYTE ESTERASE, URINE AUTO NEGATIVE (NEGATIVE); NITRITE, URINE AUTO NEGATIVE (NEGATIVE); PROTEIN, URINE AUTO 2+ mg/dL (NEGATIVE); RBC, URINE AUTO 2 /HPF (0-3); SPECIFIC GRAVITY URINE AUTO 1.016 (1.002-1.035); SQUAMOUS EPITHELIAL CELL UR AU 0 /HPF (0-6); UROBILINOGEN, URINE AUTO 0.2 mg/dL (0.0-2.0); WBC, URINE AUTO 0 /HPF (0-3)
[2020-10-07 18:35] LABS: HEMATOCRIT 43.6 % (42.0-52.0); HEMOGLOBIN 14.6 g/dl (13.5-17.5); MEAN CORPUSCULAR HEMOGLOBIN 28.6 pg (27.0-33.0); MEAN CORPUSCULAR HGB CONC 33.5 g/dl (32.0-36.5); MEAN CORPUSCULAR VOLUME 85.5 fl (80.0-96.0); PLATELET COUNT, AUTOMATED 243 10^3/uL (150-450); WHITE BLOOD COUNT 7.8 10^3/uL (4.0-10.0)
[2020-10-07 20:17] VITALS: BP 126/64
[2020-10-07 20:21] VITALS: BP 114/67
[2020-10-07] MEDS: MONTELUKAST 10 MG TAB PO SCH (21:14)
[2020-10-07] MEDS: SIMVASTATIN 40 MG TAB PO SCH (21:14)
[2020-10-07] MEDS: amLODIPine 10 MG TAB PO SCH (21:15)
[2020-10-07] MEDS ORDERED: SODIUM CHLORIDE 0.9% INJ 10 ML SYR IV SCH (22:00)
[2020-10-08] MEDS: ALBUTEROL 90 MCG/ACT 8GM HFA INHALER INH SCH ×4 (00:05→11:48)
[2020-10-08] MEDS: methylPREDNISolone 40MG 1ML VIAL IV SCH ×2 (03:35→08:09)
[2020-10-08 04:08] VITALS: BP 128/58
[2020-10-08 06:28] LABS: HEMATOCRIT 37.4 % (42.0-52.0); LYMPH # 0.8 10^3/uL (1.5-5.0); LYMPH % 15.5 % (24.0-44.0); MEAN CORPUSCULAR HEMOGLOBIN 27.8 pg (27.0-33.0); MEAN CORPUSCULAR HGB CONC 32.9 g/dl (32.0-36.5); MEAN CORPUSCULAR VOLUME 84.4 fl (80.0-96.0); MONO # 0.3 10^3/uL (0.0-0.8); MONO % 5.7 % (0.0-5.0); NEUTROPHILS # 3.8 10^3/uL (1.5-8.5); NEUTROPHILS % 78.4 % (36.0-66.0); PLATELET COUNT, AUTOMATED 210 10^3/uL (150-450); RED BLOOD COUNT 4.43 10^6/uL (4.30-6.10); WHITE BLOOD COUNT 4.9 10^3/uL (4.0-10.0)
[2020-10-08 06:43] LABS: HEMOGLOBIN 12.3 g/dl (13.5-17.5)
[2020-10-08 06:45] LABS: INR 1.08; PROTHROMBIN TIME 14.2 SECONDS (12.5-14.3)
[2020-10-08 06:46] LABS: PARTIAL THROMBOPLASTIN TIME 38.3 SECONDS (24.2-38.5)
[2020-10-08 07:03] LABS: ALBUMIN 2.4 GM/DL (3.2-5.2); BILIRUBIN,DIRECT 0.1 MG/DL (0.0-0.2); BILIRUBIN,TOTAL 0.3 MG/DL (0.2-1.0); CALCIUM LEVEL 7.6 MG/DL (8.8-10.2); CREATININE FOR GFR 1.65 MG/DL (0.70-1.30); GLOMERULAR FILTRATION RATE 43.3 (>42); MAGNESIUM LEVEL 2.5 MG/DL (1.8-2.4); POTASSIUM SERUM 4.4 MEQ/L (3.5-5.1); TOTAL PROTEIN 5.8 GM/DL (6.4-8.2)
[2020-10-08] MEDS: TIOTROPIUM INHALER/CAPSULE (SPIRIVA) INH SCH (07:53)
[2020-10-08] MEDS: ADVAIR HFA 230/21MCG INHALER INH SCH (07:54)
[2020-10-08] MEDS: SITagliptin 50 MG TAB (JANUVIA) PO SCH (08:08)
[2020-10-08] MEDS: ENOXAPARIN 60MG/0.6ML SYRINGE (J1650 PER 10MG) SC SCH (08:08)
[2020-10-08] MEDS: CETIRIZINE (ZyrTEC) 10 MG TAB PO SCH (08:08)
[2020-10-08] MEDS: CYANOCOBALAMIN 500 MCG TAB PO SCH (08:09)
[2020-10-08] MEDS: OMEPRAZOLE 20 MG CAP PO SCH (08:09)
[2020-10-08] MEDS: FENOFIBRATE 145 MG TAB (TRICOR) PO SCH (08:09)
[2020-10-08] MEDS: ASPIRIN 81 MG ENTERIC TAB PO SCH (08:09)
[2020-10-08] MEDS: DIGOXIN 0.125 MG TAB PO SCH (08:09)
[2020-10-08] MEDS: FUROSEMIDE 40 MG TAB PO SCH (08:09)
[2020-10-08 08:10] VITALS: BP 130/72
[2020-10-08] MEDS: CARVedilol 12.5 MG TAB PO SCH (08:10)
[2020-10-08] MEDS: HumaLOG INSULIN (NovoLOG) PER UNIT SC SCH (08:11)
[2020-10-08] MEDS: LEVEMIR (INSULIN DETEMIR) 1 UNITS/0.01ML SC SCH (08:11)
--- NOTE | 2020-10-08 08:28 | IPNPDOC ---
Subjective Date Seen The patient was seen on 10/07/20. Subjective Chief Complaint/HPI No new events overnight. Remains on 2 l of oxygen which is his baseline. No fever overnight. Patient insisting that he is feeling good and wants to go home as he has to take care of his animals. Objective Physical Examination General Exam: Positive: Alert, No Acute Distress Eye Exam: Positive: PERRLA, Conjunctiva & lids normal, EOMI; Negative: Sclera icteric ENT Exam: Positive: Atraumatic, Mucous membr. moist/pink, Pharynx Normal Neck Exam: Positive: Supple; Negative: JVD, thyromegaly Chest Exam: Positive: Rhonchi, Wheezing, Diminished Heart Exam: Positive: Rate Normal, Regular Rhythm, Normal S1, Normal S2; Negative: Murmurs, Rubs Abdomen Exam: Positive: Normal bowel sounds, Soft; Negative: Tenderness, Hepatospenomegaly Extremity Exam: Positive: Normal pulses; Negative: Clubbing, Cyanosis, Edema Skin Exam: Positive: Nl turgor and temperature; Negative: Breakdown, Lesion Neuro Exam: Positive: Normal Speech Assessment /Plan Assessment 75 year old male with multiple medical comorbidities including COPD, CAD, valvular heart disease, obesity on 2 l oxygen at home as needed, reports does not use it every day presented to the ED for increasing SOB, wheezing for the past 2 days. He has been using his inhalors, nebs and oxygen at home but c ontinued to have wheezing and SOB on mild exertion so came to the ED at the insistence of his . His grand daughter was diagnosed with COVID on 09/29/20. Grand daughter got it from school. He and has been in quarantine and taking care of grand daughter. In the ED he was found to be COVID positive. He was also febrile to 101.3 in the ED and confused. He was admitted for COVID -19 pneumonia/pneumonitis, Acute metabolic encephalopathy, COPD exacerbation. COVID -19 Pneumonia/pneumonitis droplet and contact isolation continue ASA, methyl pred , Lovenox BID Oxygen supplementation to maintain spo2 88% to 92 % Remdesevir Pulmonary consult appretiated. Daily ferritin, crp, fibrinogen, Lfts, CBC, Basic, procalcitonin. HIV and hepatitis profile negative. Leucopenia likely due to viral infection. wbc 1.8 with 55% neutrophils will monitor closely. If drops further will discuss with hematology if will need G CSF or not. Acute metabolic encephalopathy probably due to Fever ABG did not show any CO2 retention. Now resolved with resolution of fever. COPD exacerbation due to COVID-19 advair, spiriva, albuterol , methyl pred, oxygen. singulair Chronic respiratory failure patient reports that he uses oxygen only as needed though he has been prescribed to use it all the time. Allergies cetrizine, singulair CAD/ CABG continue asa, statin, coreg Hyperlipidemia statin, fenofibrate Diastolic CHF ProBNP elevated will watch for developing fluid overload. on digoxin, coreg, Lasix Diabetes continue januvia, lispro sliding scale, levemir insulin. will hold glipizide and metformin hypoglycemic protocol. FS Ac and HS CKD stage 3 creatinine at baseline. s/p AVR by bioprosthetic valve. Iron def and Vit B12 def will restart on discharge. VS, I&O, 24H, Fishbone Vital Signs/I&O Vital Signs Date Time Temp Pulse Resp B/P (MAP) Pulse Ox O2 Delivery O2 Flow Rate FiO2 10/07/20 04:00 98.3 71 18 146/70 (95) 95 Nasal Cannula 2.0 I&O- Last 24 Hours up to 6 AM 10/07/20 07:00 Intake Total 670 ml Balance 670 ml Laboratory Data 24H LABS Laboratory Tests 2 10/06/20 13:31: Immature Granulocyte % (Auto) 0.4, Neutrophils (%) (Auto) 62.5, Lymphocytes (%) (Auto) 24.1, Monocytes (%) (Auto) 12.8H, Eosinophils (%) (Auto) 0.0, Basophils (%) (Auto) 0.2, Neutrophils # (Auto) 2.8, Lymphocytes # (Auto) 1.1L, Monocytes # (Auto) 0.6, Eosinophils # (Auto) 0.0, Basophils # (Auto) 0.0, Nucleated Red Blood Cells % (auto) 0.0, D-Dimer, Quantitative 942.27H, Anion Gap 6L, Glomerular Filtration Rate 45.8, Lactic Acid Level 1.1, Calcium Level 9.0, Ferritin 456H, Total Bilirubin 0.5, Aspartate Amino Transf (AST/SGOT) 21, Alanine Aminotransferase (ALT/SGPT) 23, Alkaline Phosphatase 44L, Lactate Dehydrogenase 225, Total Creatine Kinase 83, Creatine Kinase MB 1.4, Creatine Kinase MB Relative Index 1.69, Troponin I 0.07, C-Reactive Protein, Quantitative 6.75H, Total Protein 7.0, Albumin 3.3, Albumin/Globulin Ratio 0.9, Triglycerides Level 151H, Digoxin Level 0.1L, Hepatitis B Surface Antigen NEGATIVE, HIV Antigen/Antibody Combo Qual NEGATIVE 10/06/20 17:44: 10/06/20 17:51: Blood Gas Bicarbonate Standard 27.4H, Arterial Blood pH 7.477H, Arterial Blood Partial Pressure CO2 36.9, Arterial Blood Partial Pressure O2 115.3H, Arterial Blood Total CO2 27.8, Arterial Blood HCO3 26.7H, Arterial Blood Base Excess 3.2H, Arterial Blood Oxygen Saturation 98.7 10/06/20 18:39: Bedside Glucose (Misc Panel) 185H 10/06/20 21:39: Bedside Glucose (Misc Panel) 220H 10/07/20 05:36: CBC/BMP Laboratory Tests 10/06/20 13:31 Microbiology Microbiology 10/06/20 Blood Culture, Received Pending 10/06/20 Blood Culture, Received Pending 10/06/20 Respiratory Virus Panel (PCR) ([facility]) - Final, Complete SARS-CoV-2 (COVID 19) COLLIN WILHELM MD Oct 07, 2020 06:23
[2020-10-08 08:51] LABS: C REACTIVE PROTEIN QUANTITATIV 6.59 MG/DL (0.00-0.30)
[2020-10-08] MEDS ORDERED: PRED10TA2 PO (11:26)
--- NOTE | 2020-10-08 14:11 | DS.PDOC ---
Discharge Summary General Date of Admission Oct 06, 2020 at 16:41 Date of Discharge 10/08/20 Discharge Summary PROCEDURES PERFORMED DURING STAY: [None]. DISCHARGE DIAGNOSES: COVID- 19 pneumonitis COPD exacerbation Acute metabolic encephalopathy Leucopenia Chronic respiratory failure with hypoxia. SECONDARY DIAGNOSIS: COPD /KAYLEY 06/05 - FEV 1 1.81 MODERATE PUL HYPERTENSION CAD S/P CABG 1998 DIASTOLIC CHF S/P AORTIC VALVE REPLACEMENT - BIOPROSTHETIC , MILD MR, MILD TR, pacemaker leads in right chamber PACEMAKER MORBID OBESITY Hypertensive Heart Disease HYPERLIPIDEMIA GERD CHRONIC RESPIRATORY FAILURE, CHRONIC O2 2LPM, as needed. VIT D DEF IRON DEF ANEMIA B12 DEF CKD3 DM2 ED CHELY DERM COMPLICATIONS/CHIEF COMPLAINT: Covid-19/Acute Metabolic Encephalopathy. HOSPITAL COURSE: 75 year old male with multiple medical comorbidities including COPD, CAD, valvular heart disease, obesity on 2 l oxygen at home as needed, reports does not use it every day presented to the ED for increasing SOB, wheezing for the past 2 days. He has been using his inhalors, nebs and oxygen at home but continued to have wheezing and SOB on mild exertion so came to the ED at the insistence of his . His grand daughter was diagnosed with COVID on 09/29/20. Grand daughter got it from school. He and has been in quarantine and taking care of grand daughter. In the ED he was found to be COVID positive. He was also febrile to 101.3 in the ED and confused. He was admitted for COVID - 19 pneumonia/pneumonitis, Acute metabolic encephalopathy, COPD exacerbation. COVID -19 Pneumonia/pneumonitis droplet and contact isolation continue ASA, prednisone taper. Inhalors and nebs as per home regimen. Oxygen prn. Leucopenia likely due to viral infection. wbc 1.8 with 55% neutrophils improved. Acute metabolic encephalopathy probably due to Fever ABG did not show any CO2 retention. Now resolved with resolution of fever. COPD exacerbation due to COVID-19 advair, spiriva, albuterol , oxygen prn, singulair, prednisone taper. Chronic respiratory failure with hypoxia. patient reports that he uses oxygen only as needed though he has been prescribed to use it all the time. Allergies cetrizine, singulair CAD/ CABG continue asa, statin, coreg Hyperlipidemia statin, fenofibrate Diastolic CHF ProBNP elevated No clinical fluid overload. on digoxin, coreg, Lasix continued. Diabetes continue home meds. hypoglycemic protocol. FS Ac and HS CKD stage 3 creatinine at baseline. s/p AVR by bioprosthetic valve. Iron def and Vit B12 def restarted supplements. DISCHARGE MEDICATIONS: Please see below. ALLERGIES: Please see below. PHYSICAL EXAMINATION ON DISCHARGE: VITAL SIGNS: Please see below. General Exam: Positive: Alert, No Acute Distress Eye Exam: Positive: PERRLA, Conjunctiva & lids normal, EOMI; Negative: Sclera icteric ENT Exam: Positive: Atraumatic, Mucous membr. moist/pink, Pharynx Normal Neck Exam: Positive: Supple; Negative: JVD, thyromegaly Chest Exam: Positive: few scattered Ronchi and wheezing. Heart Exam: Positive: Rate Normal, Regular Rhythm, Normal S1, Normal S2; Negative: Murmurs, Rubs Abdomen Exam: Positive: Normal bowel sounds, Soft; Negative: Tenderness, Hepatospenomegaly Extremity Exam: Positive: Normal pulses; Negative: Clubbing, Cyanosis, Edema Skin Exam: Positive: Nl turgor and temperature; Negative: Breakdown, Lesion Neuro Exam: Positive: Normal Speech LABORATORY DATA: Please see below. ACTIVITY: [As tolerated]. DIET: Carb consistent DISPOSITION: 01 Home, Self-Care. DISCHARGE INSTRUCTIONS: PMD in 1 to 2 weeks DISCHARGE CONDITION: [Stable]. TIME SPENT ON DISCHARGE: 35 minutes. Vital Signs/I&Os Vital Signs Date Time Temp Pulse Resp B/P (MAP) Pulse Ox O2 Delivery O2 Flow Rate FiO2 10/08/20 08:10 71 130/72 10/08/20 04:08 97.0 19 91 Room Air 10/07/20 20:21 2.0 I&O- Last 24 Hours up to 6 AM 10/08/20 06:00 Intake Total 840 ml Output Total 1600 ml Balance -760 ml Laboratory Data Labs 24H Laboratory Tests 2 10/07/20 16:44: Bedside Glucose (Misc Panel) 160H 10/07/20 17:32: Urine Color YELLOW, Urine Appearance HAZY, Urine pH 5.0, Urine Specific [place] 1.016, Urine Protein 2+H, Urine Glucose (Auto)(UA) 1+H, Urine Ketones (Auto) NEGATIVE, Urine Blood NEGATIVE, Urine Nitrite NEGATIVE, Urine Bilirubin NEGATIVE, Urine Urobilinogen 0.2, Urine Leukocyte Esterase (Auto) NEGATIVE, Urine WBC (Auto) 0, Urine RBC (Auto) 2, Urine Hyaline Casts (Auto) 13, Urine Bacteria (Auto) NEGATIVE, Urine Squamous Epithelial Cells 0, Urine Sperm (Auto) 10/07/20 18:16: Nucleated Red Blood Cells % (auto) 0.0 10/07/20 20:51: Bedside Glucose (Misc Panel) 183H 10/08/20 05:32: Immature Granulocyte % (Auto) 0.4, Neutrophils (%) (Auto) 78.4H, Lymphocytes (%) (Auto) 15.5L, Monocytes (%) (Auto) 5.7H, Eosinophils (%) (Auto) 0.0, Basophils (%) (Auto) 0.0, Neutrophils # (Auto) 3.8, Lymphocytes # (Auto) 0.8L, Monocytes # (Auto) 0.3, Eosinophils # (Auto) 0.0, Basophils # (Auto) 0.0, Nucleated Red Blood Cells % (auto) 0.0, Prothrombin Time 14.2H, Prothromb Time International Ratio 1.08, Activated Partial Thromboplast Time 38.3, Fibrinogen 440, Anion Gap 10, Glomerular Filtration Rate 43.3, Calcium Level 7.6L, Magnesium Level 2.5H, Ferritin 519H, Total Bilirubin 0.3, Direct Bilirubin 0.1, Aspartate Amino Transf (AST/SGOT) 19, Alanine Aminotransferase (ALT/SGPT) 19, Alkaline Phosphatase 39L, C-Reactive Protein, Quantitative 6.59H, WL-Mbp-O-Type Natriuretic Peptide 3838H, Total Protein 5.8L, Albumin 2.4L, Albumin/Globulin Ratio 0.7 CBC/BMP Laboratory Tests 10/07/20 18:16 10/08/20 05:32 FSBS Laboratory Tests Test 10/07/20 16:44 10/07/20 20:51 Range/Units Bedside Glucose (Misc Panel) 160 183 83-110 MG/DL Microbiology Microbiology 10/06/20 Blood Culture - Preliminary, Resulted No growth after 24 hours . All specim... 10/06/20 Blood Culture - Preliminary, Resulted No growth after 24 hours . All specim... 10/06/20 Respiratory Virus Panel (PCR) ([facility]) - Final, Complete SARS-CoV-2 (COVID 19) Discharge Medications Scheduled Aspirin (Aspirin EC) 81 Mg Tablet.dr, 81 MG PO DAILY, (Reported) Carvedilol (Carvedilol) 12.5 Mg Tab, 12.5 MG PO BID, (Reported) Cetirizine HCl (Cetirizine HCl) 10 Mg Tab, 10 MG PO DAILY, (Reported) Cyanocobalamin (Vitamin B-12) (Vitamin B-12) 1,000 Mcg Tab, 1,000 MCG PO DAILY, (Reported) Cyclosporine (Restasis) 0.05% Droperette, 1 DROP OU BID, (Reported) Digoxin (Digoxin) 125 Mcg Tablet, 125 MCG PO DAILY, (Reported) Fenofibrate Nanocrystallized (Fenofibrate) 145 Mg Tab, 145 MG PO DAILY, (Rep orted) Ferrous Sulfate (Ferrous Sulfate) 325 Mg Tab, 325 MG PO TID, (Reported) Furosemide (Furosemide) 40 Mg Tab, 40 MG PO DAILY, (Reported) Glipizide (Glipizide ER) 10 Mg Tab, 10 MG PO QHS, (Reported) Insulin Glargine,Hum.rec.anlog (Basaglar Kwikpen U-100) 100 Unit/1 Ml Insuln.pen, 24 UNIT SC DAILY, (Reported) Metformin HCl (Metformin HCl) 1,000 Mg Tablet, 1,000 MG PO BID, (Reported) Montelukast Sodium (Montelukast Sodium) 10 Mg Tab, 10 MG PO QHS, (Reported) Omeprazole (Omeprazole) 20 Mg Cap, 20 MG PO DAILY, (Reported) Prednisone (Prednisone) 10 Mg Tablet, 10 MG PO TAPER Take 4 tabs daily x 3 days, then 3 tabs daily x 3 days, then 2 tabs daily x 3 days, then 1 tab daily x 3 days and stop Pregabalin (Lyrica) 75 Mg Cap, 75 MG PO DAILY, (Reported) Salmeterol/Fluticasone (Advair 500-50 Diskus) 1 Each Blst.w.dev, 1 PUFF INH BID, (Reported) Simvastatin (Simvastatin) 40 Mg Tab, 40 MG PO QHS, (Reported) Sitagliptin Phosphate (Januvia) 100 Mg Tab, 100 MG PO DAILY, (Reported) Tiotropium [place] Monohydrate (Spiriva) 18 Mcg Cap.w.dev, 1 INHALATION INH DAILY, (Reported) Scheduled PRN Ipratropium/Albuterol Sulfate (Combivent Respimat 20-100 Mcg) 1 Aer Aer, 1 PUFF INH QID PRN for SHORTNESS OF BREATH, (Reported) Miscellaneous Medications [Patient Comment] , (Reported) MED LIST OBTAINED FROM EXT MED HX AND LAST MD VISIT. FAMILY UNSURE WHEN PATIENT LAST TOOK MEDICATIONS. Allergies Coded Allergies: No Known Allergies (Verified , 04/28/03) COLLIN WILHELM MD Oct 08, 2020 14:11
[2020-10-09 16:08] LABS: HEPATITIS B CORE ANTIBODY IGG Negative (Negative); MYCOPLASMA PNEUMONIAE IgG 137 U/mL (0-99); MYCOPLASMA PNEUMONIAE IgM <770 U/mL (0-769)
== END 2020-10-08 13:30 | disposition home or self-care (01) | DRG 177 ==
LOC: M ED 12:55 → M ED INP 16:41 → ENRESERV 19:33 → M 4MAIN 21:15
PROVIDERS: ADMIT Internal Medicine Nephrology; ATTEND Internal Medicine Nephrology
DX: U07.1 COVID-19 (principal); J12.89 Other viral pneumonia; G93.41 Metabolic encephalopathy; J44.1 Chronic obstructive pulmonary disease with (acute) exacerbation; J44.0 Chronic obstructive pulmonary disease with (acute) lower respiratory infection; I13.0 Hypertensive heart and chronic kidney disease with heart failure and stage 1 through stage 4 chronic kidney disease, or unspecified chronic kidney disease; I50.32 Chronic diastolic (congestive) heart failure; D68.69 Other thrombophilia; J96.11 Chronic respiratory failure with hypoxia; N18.30 Chronic kidney disease, stage 3 unspecified; E11.22 Type 2 diabetes mellitus with diabetic chronic kidney disease; I27.20 Pulmonary hypertension, unspecified; I25.10 Atherosclerotic heart disease of native coronary artery without angina pectoris; K21.9 Gastro-esophageal reflux disease without esophagitis; Z95.0 Presence of cardiac pacemaker; D50.9 Iron deficiency anemia, unspecified; E66.01 Morbid (severe) obesity due to excess calories; E78.5 Hyperlipidemia, unspecified; E53.8 Deficiency of other specified B group vitamins; I08.3 Combined rheumatic disorders of mitral, aortic and tricuspid valves; E55.9 Vitamin D deficiency, unspecified; Z99.81 Dependence on supplemental oxygen; Z79.82 Long term (current) use of aspirin; Z79.899 Other long term (current) drug therapy; Z79.4 Long term (current) use of insulin; Z91.19 Patient's noncompliance with other medical treatment and regimen; L21.9 Seborrheic dermatitis, unspecified

== ENCOUNTER → 2020-11-17 | Outpatient (REF) | payer MEDICARE ==
[~2020-11-17] MED LIST changes: +ADV500INH INH; +ASPI81CH33 PO; +ASPI81TA27 PO; +BASA100I SC; +DIGO0.123 PO; +METF10004 PO; +MONT10TA10 PO; -MONT5TAB2 PO; +PATIENT COMMENT; +PRED10TA2 PO; +REST0.05 OU; +TIOT18INH INH
[2020-11-17 16:50] LABS: BASO # 0.1 10^3/uL (0.0-0.2); BASO % 0.6 % (0.0-1.0); EOS # 0.2 10^3/uL (0.0-0.5); EOS % 1.7 % (0.0-3.0); HEMATOCRIT 40.6 % (42.0-52.0); HEMOGLOBIN 13.1 g/dl (13.5-17.5); LYMPH # 1.6 10^3/uL (1.5-5.0); LYMPH % 16.1 % (24.0-44.0); MEAN CORPUSCULAR HEMOGLOBIN 29.2 pg (27.0-33.0); MEAN CORPUSCULAR HGB CONC 32.3 g/dl (32.0-36.5); MEAN CORPUSCULAR VOLUME 90.4 fl (80.0-96.0); MONO # 0.5 10^3/uL (0.0-0.8); MONO % 4.9 % (0.0-5.0); NEUTROPHILS # 7.8 10^3/uL (1.5-8.5); NEUTROPHILS % 76.1 % (36.0-66.0); PLATELET COUNT, AUTOMATED 260 10^3/uL (150-450); RED BLOOD COUNT 4.49 10^6/uL (4.30-6.10); WHITE BLOOD COUNT 10.2 10^3/uL (4.0-10.0)
[2020-11-17 17:17] LABS: HEMOGLOBIN A1c 6.5 %
[2020-11-17 17:44] LABS: ALBUMIN 3.7 GM/DL (3.2-5.2); BILIRUBIN,TOTAL 0.6 MG/DL (0.2-1.0); CALCIUM LEVEL 9.9 MG/DL (8.8-10.2); CHOLESTEROL RISK RATIO 2.547 (<5); CREATININE FOR GFR 1.43 MG/DL (0.70-1.30); FOLATE 10.7 NG/ML; MAGNESIUM LEVEL 2.2 MG/DL (1.8-2.4); PERCENT SATURATION 24.2 % (19.7-50.0); POTASSIUM SERUM 5.2 MEQ/L (3.5-5.1); THYROID STIMULATING HORMONE 2.34 uIU/ML (0.358-3.740); TOTAL 25(OH) VITAMIN D 32.4 NG/ML (30.0-100.0)
[2020-11-17 17:46] LABS: CREATININE, URINE < 13.0 MG/DL
== END ==
LOC: M SFHCADAM 11:49
PROVIDERS: ATTEND Physician Assistant Medical
DX: D50.9 Iron deficiency anemia, unspecified (principal); E66.01 Morbid (severe) obesity due to excess calories; E11.22 Type 2 diabetes mellitus with diabetic chronic kidney disease; E53.8 Deficiency of other specified B group vitamins; E55.9 Vitamin D deficiency, unspecified; Z79.899 Other long term (current) drug therapy

== ENCOUNTER → 2020-12-15 | Outpatient (REF) | payer MEDICARE ==
[2020-12-16 13:49] LABS: CALCIUM LEVEL 9.8 MG/DL (8.8-10.2); CREATININE FOR GFR 1.65 MG/DL (0.70-1.30); GLOMERULAR FILTRATION RATE 43.3 (>42); POTASSIUM SERUM 4.9 MEQ/L (3.5-5.1)
== END ==
LOC: M SFHCADAM 15:20
PROVIDERS: ATTEND Physician Assistant Medical
DX: N18.31 Chronic kidney disease, stage 3a (principal)

== ENCOUNTER → 2020-12-25 | Outpatient (CLI) | payer MEDICARE ==
--- NOTE | 2020-12-25 11:03 | REP ---
INDICATION: CKD 3 COMPARISON: 09/17/2008 TECHNIQUE: Real time solitario scale ultrasound examination using curved array transducer. FINDINGS: The kidneys demonstrate mild cortical thinning and increased central sinus fat suggesting age-related renal changes. No associated hydronephrosis, nephrolithiasis or mass lesion is identified. Right kidney measures 12.4 x 5.9 x 6.1 cm with 10.2 x 9.8 x 12.6 cm exophytic upper pole cyst which is relatively new when compared to renal ultrasound dated 2007. Left kidney measures 12.4 x 4.8 x 5.8 cm and includes 3.7 x 3.6 x 3.7 cm exophytic upper pole cyst similar to prior examination. IMPRESSION: 1. 12 cm cystic lesion inseparable from the upper pole of the right kidney represents a new finding as compared to 2008. This likely represents a renal cyst and less likely adrenal lesion. Correlation with pre and postcontrast CT may be warranted for further investigation. <Electronically signed by Mikhail Haji > 12/25/20 [id number]
== END ==
LOC: M RAD 10:24
PROVIDERS: ATTEND Physician Assistant Medical
DX: N18.31 Chronic kidney disease, stage 3a (principal); R80.9 Proteinuria, unspecified; E11.22 Type 2 diabetes mellitus with diabetic chronic kidney disease

== ENCOUNTER → 2021-03-30 | Outpatient (CLI) | payer MEDICARE ==
--- NOTE | 2021-03-30 16:12 | REP ---
INDICATION: COPD COMPARISON: 10/06/2020 TECHNIQUE: PA and lateral. FINDINGS: The mediastinum and cardiac silhouette are stable and grossly within normal limits. Evidence for prior sternotomy again noted. The lung almaraz demonstrate chronic appearing changes without acute consolidation, effusion, or pneumothorax. The skeletal structures are intact and normal. IMPRESSION: Chronic appearing changes. No obvious focal consolidation or effusion. <Electronically signed by Mikhail Haji > 03/30/21 [id number]
== END ==
LOC: M ADAMS 15:31
PROVIDERS: ATTEND Physician Assistant
DX: J44.9 Chronic obstructive pulmonary disease, unspecified (principal)

== ENCOUNTER → 2021-03-30 | Outpatient (REF) | payer MEDICARE ==
[2021-03-30 20:54] LABS: BASO # 0.1 10^3/uL (0.0-0.2); BASO % 1.2 % (0.0-1.0); EOS # 0.7 10^3/uL (0.0-0.5); EOS % 8.3 % (0.0-3.0); HEMATOCRIT 38.1 % (42.0-52.0); HEMOGLOBIN 12.2 g/dl (13.5-17.5); LYMPH # 2.8 10^3/uL (1.5-5.0); LYMPH % 33.5 % (24.0-44.0); MEAN CORPUSCULAR HEMOGLOBIN 29.5 pg (27.0-33.0); MONO # 0.9 10^3/uL (0.0-0.8); MONO % 10.5 % (2.0-8.0); NEUTROPHILS # 3.9 10^3/uL (1.5-8.5); PLATELET COUNT, AUTOMATED 268 10^3/uL (150-450); RED BLOOD COUNT 4.14 10^6/uL (4.30-6.10); WHITE BLOOD COUNT 8.5 10^3/uL (4.0-10.0)
[2021-03-30 21:02] LABS: ALBUMIN 3.8 GM/DL (3.2-5.2); BILIRUBIN,TOTAL 0.5 MG/DL (0.2-1.0); CREATININE FOR GFR 1.92 MG/DL (0.70-1.30); GLOMERULAR FILTRATION RATE 36.3 (>42); POTASSIUM SERUM 4.2 MEQ/L (3.5-5.1); TOTAL PROTEIN 6.9 GM/DL (6.4-8.2)
[2021-03-30 21:17] LABS: HEMOGLOBIN A1c 7.1 %
== END ==
LOC: M SFHCADAM 15:28
PROVIDERS: ATTEND Physician Assistant
DX: J44.9 Chronic obstructive pulmonary disease, unspecified (principal); J40 Bronchitis, not specified as acute or chronic; N18.30 Chronic kidney disease, stage 3 unspecified; I11.0 Hypertensive heart disease with heart failure; E11.22 Type 2 diabetes mellitus with diabetic chronic kidney disease; R80.9 Proteinuria, unspecified

== ENCOUNTER → 2021-08-12 | Outpatient (REF) | payer MEDICARE ==
[2021-08-12 12:57] LABS: BASO % 0.4 % (0.0-1.0); EOS # 0.1 10^3/uL (0.0-0.5); EOS % 0.8 % (0.0-3.0); HEMATOCRIT 38.5 % (42.0-52.0); HEMOGLOBIN 12.6 g/dl (13.5-17.5); LYMPH # 2.7 10^3/uL (1.5-5.0); LYMPH % 27.8 % (24.0-44.0); MEAN CORPUSCULAR HEMOGLOBIN 29.2 pg (27.0-33.0); MEAN CORPUSCULAR HGB CONC 32.7 g/dl (32.0-36.5); MEAN CORPUSCULAR VOLUME 89.3 fl (80.0-96.0); MONO % 10.4 % (2.0-8.0); NEUTROPHILS # 5.7 10^3/uL (1.5-8.5); NEUTROPHILS % 60.2 % (36.0-66.0); PLATELET COUNT, AUTOMATED 276 10^3/uL (150-450); RED BLOOD COUNT 4.31 10^6/uL (4.30-6.10); WHITE BLOOD COUNT 9.5 10^3/uL (4.0-10.0)
[2021-08-12 13:37] LABS: HEMOGLOBIN A1c 6.8 %
[2021-08-12 13:45] LABS: ALBUMIN 3.4 GM/DL (3.2-5.2); BILIRUBIN,TOTAL 0.3 MG/DL (0.2-1.0); CALCIUM LEVEL 9.3 MG/DL (8.8-10.2); CREATININE FOR GFR 2.4 MG/DL (0.70-1.30); FOLATE 13.4 NG/ML; FREE T4 1.01 NG/DL (0.76-1.46); GLOMERULAR FILTRATION RATE 28.1 (>42); THYROID STIMULATING HORMONE 1.29 uIU/ML (0.358-3.740); TOTAL 25(OH) VITAMIN D 23.2 NG/ML (30.0-100.0); TOTAL PROTEIN 6.7 GM/DL (6.4-8.2)
== END ==
LOC: M SFHCADAM 09:00
PROVIDERS: ATTEND Physician Assistant
DX: N18.32 Chronic kidney disease, stage 3b (principal); E11.9 Type 2 diabetes mellitus without complications; L30.9 Dermatitis, unspecified; N28.1 Cyst of kidney, acquired

== ENCOUNTER → 2021-08-30 | Outpatient (CLI) | payer MEDICARE ==
--- NOTE | 2021-08-30 16:29 | REP ---
INDICATION: CYST OF RT KIDNEY. COMPARISON: 02/23/2007 the only prior a contrast-enhanced exam. Prior renal ultrasound showed a 12 cm size right renal cyst TECHNIQUE: Standard helical technique without intravenous or oral bowel preparatory contrast. FINDINGS: The lung bases are clear. The liver and spleen are unremarkable. There is cholelithiasis. The pancreas and adrenal glands are unremarkable. There is a 13.3 by 11.2 by 13 cm sized cyst arising from the superior pole of the right kidney. This has increased in size when it measured 6 cm maximally on the prior CT. Arising from the superior pole of the left kidney there is a round 4.1 cm sized low-density structure which has water density Hounsfield unit readings consistent with a cyst. This has increased slightly in size from the prior exam when it measured 2 cm in its greatest dimension. There is no free fluid or free air. The abdominal aorta and para-aortic regions are essentially unchanged. There is no significant change in appearance of the bowel loops or the mesenteries. There is sigmoid colon diverticulosis. There is been previous ventral herniorrhaphy. This area was not imaged on the prior CT abdomen. Bone window technique throughout the exam shows the osseous structures to be within normal limits for the patient's age. IMPRESSION: 1. Bilateral renal cysts as described above. 2. Cholelithiasis. 3. Other findings as described above. <Electronically signed by Yvon Ryan > 08/30/21 [id number]
== END ==
LOC: M RAD 15:44
PROVIDERS: ATTEND Physician Assistant
DX: N28.1 Cyst of kidney, acquired (principal); K80.20 Calculus of gallbladder without cholecystitis without obstruction

== ENCOUNTER → 2021-09-13 | Outpatient (REF) | payer MEDICARE ==
[2021-09-13 13:31] LABS: APPEARANCE, URINE CLEAR (CLEAR); BACTERIA, URINE AUTO NEGATIVE (NEGATIVE); BILIRUBIN, URINE AUTO NEGATIVE (NEGATIVE); BLOOD, URINE BLOOD NEGATIVE (NEGATIVE); COLOR, URINE YELLOW (YELLOW); GLUCOSE, URINE (UA) AUTO NEGATIVE (NEGATIVE); KETONE, URINE AUTO NEGATIVE (NEGATIVE); LEUKOCYTE ESTERASE, URINE AUTO NEGATIVE (NEGATIVE); NITRITE, URINE AUTO NEGATIVE (NEGATIVE); PROTEIN, URINE AUTO 2+ mg/dL (NEGATIVE); RBC, URINE AUTO 0 /HPF (0-3); SPECIFIC GRAVITY URINE AUTO 1.008 (1.002-1.035); SQUAMOUS EPITHELIAL CELL UR AU 1 /HPF (0-6); UROBILINOGEN, URINE AUTO 0.2 mg/dL (0.0-2.0); WBC, URINE AUTO 1 /HPF (0-3)
== END ==
LOC: M SMT 12:56
PROVIDERS: ATTEND Urology
DX: N28.9 Disorder of kidney and ureter, unspecified (principal)

== ENCOUNTER 2021-11-21 18:00 | Inpatient (IN) | payer MEDICARE ==
[~2021-11-21 18:00] MED LIST changes: -MONT10TA10 PO; +MONT10TA97 PO
[2021-11-21 18:37] LABS: VENOUS BASE EXCESS 6.8 (-2.0-2.0); VENOUS HCO3 33.4 MEQ/L (23.0-27.0); VENOUS O2 SATURATION 60.7 % (60.0-80.0); VENOUS PARTIAL PRESSURE CO2 57.8 mmHg (38.0-50.0); VENOUS PARTIAL PRESSURE O2 30.3 mmHg (30.0-50.0); VENOUS STANDARD HCO3 29.8 MEQ/L; VENOUS TOTAL CO2 35.2 MEQ/L (24.0-28.0)
[2021-11-21 18:46] LABS: BASO % 0.3 % (0.0-1.0); EOS # 0.1 10^3/uL (0.0-0.5); EOS % 1.4 % (0.0-3.0); HEMATOCRIT 32.5 % (42.0-52.0); HEMOGLOBIN 10.8 g/dl (13.5-17.5); LYMPH # 1.8 10^3/uL (1.5-5.0); MEAN CORPUSCULAR HGB CONC 33.2 g/dl (32.0-36.5); MEAN CORPUSCULAR VOLUME 87.1 fl (80.0-96.0); MONO # 1.5 10^3/uL (0.0-0.8); MONO % 15.4 % (2.0-8.0); NEUTROPHILS # 6.4 10^3/uL (1.5-8.5); NEUTROPHILS % 64.2 % (36.0-66.0); PLATELET COUNT, AUTOMATED 221 10^3/uL (150-450); RED BLOOD COUNT 3.73 10^6/uL (4.30-6.10)
[2021-11-21 19:08] LABS: CK-MB VALUE MASS 2.7 NG/ML (<3.6); MB/CK RELATIVE INDEX 0.51 (< OR =4)
[2021-11-21 19:14] LABS: ALBUMIN 2.8 GM/DL (3.2-5.2); BILIRUBIN,DIRECT 0.3 MG/DL (0.0-0.2); BILIRUBIN,TOTAL 0.9 MG/DL (0.2-1.0); CALCIUM LEVEL 8.2 MG/DL (8.8-10.2); CREATININE FOR GFR 2.08 MG/DL (0.70-1.30); POTASSIUM SERUM 3.9 MEQ/L (3.5-5.1); THYROID STIMULATING HORMONE 3.46 uIU/ML (0.358-3.740); TOTAL PROTEIN 6.2 GM/DL (6.4-8.2)
[2021-11-21] MEDS ORDERED: IPRATROPIUM 0.5MG/ALBUTEROL 2.5MG INH SOL UD 3ML (DUONEB) NEB ONE ×2 (19:55→23:15)
[2021-11-21] MEDS ORDERED: TRAD5TAB PO (20:11)
[2021-11-21] MEDS ORDERED: PRESCAP PO (20:11)
[2021-11-21] MEDS ORDERED: LISI5TAB11 PO (20:11)
[2021-11-21] MEDS ORDERED: HOME MED LIST COMPLETE! XX SCH (20:15)
[2021-11-21] MEDS ORDERED: ALBUTEROL SULFATE 2.5 MG/0.5 ML INH NEB SOLN NEB PRN (23:20)
[2021-11-21] MEDS ORDERED: methylPREDNISolone 125MG 2ML VIAL IV STA (23:28)
[2021-11-21] MEDS ORDERED: DEXTROSE 50% 50 ML SYRINGE IV PRN (23:45)
[2021-11-21] MEDS ORDERED: GLUCAGON INJ 1MG VIAL SC PRN (23:45)
[2021-11-21] MEDS ORDERED: GLUCOSE 4GM CHEW TABLET PO PRN (23:45)
[2021-11-22] MEDS ORDERED: NS 250 ML IV ONE (00:10)
[2021-11-22] MEDS: cefTRIAXone SOD 1 GM in D5W MINI-BAG PLUS 50 ML IV SCH ×2 (00:46→23:20)
[2021-11-22] MEDS: DOXYCYCLINE HYCLATE 100MG TABLET PO SCH ×3 (00:46→22:25)
[2021-11-22] MEDS: IPRATROPIUM 0.5MG/ALBUTEROL 2.5MG INH SOL UD 3ML (DUONEB) NEB SCH ×4 (02:00→19:26)
[2021-11-22] MEDS: methylPREDNISolone 40MG 1ML VIAL IV SCH ×4 (06:28→23:19)
[2021-11-22] MEDS: HumaLOG INSULIN (NovoLOG) PER UNIT SC SCH ×4 (08:32→22:39)
[2021-11-22] MEDS: HEPARIN SOD (PORCINE) 5000UNITS/ML 1ML VIAL/SYRINGE SC SCH ×2 (09:31→22:26)
[2021-11-22 10:55] LABS: CALCIUM LEVEL 8.7 MG/DL (8.8-10.2); CREATININE FOR GFR 2.35 MG/DL (0.70-1.30); GLOMERULAR FILTRATION RATE 28.7 (>42); POTASSIUM SERUM 3.9 MEQ/L (3.5-5.1)
[2021-11-22 15:58] VITALS: BP 158/68
[2021-11-22 17:25] LABS: INR 1.08; PROTHROMBIN TIME 14.4 SECONDS (12.7-14.5)
[2021-11-22 17:26] LABS: PARTIAL THROMBOPLASTIN TIME 46.2 SECONDS (25.9-37.0)
[2021-11-22 17:28] LABS: D-DIMER QUANT 2691.6 ng/ml (<500)
[2021-11-22] MEDS: ADVAIR HFA 230/21MCG INHALER INH SCH (19:26)
[2021-11-22 20:00] VITALS: BP 147/66; O2SAT 95
[2021-11-22] MEDS ORDERED: REMDESIVIR 200 MG in NS 250 ML IV ONE (20:00)
[2021-11-22] MEDS ORDERED: SODIUM CHLORIDE 0.9% INJ 10 ML SYR IV ONE (21:00)
[2021-11-22] MEDS: CARVedilol 12.5 MG TAB PO SCH (22:24)
[2021-11-22] MEDS: SIMVASTATIN 40 MG TAB PO SCH (22:25)
[2021-11-22] MEDS: OCUVITE 1 TAB PO SCH (22:25)
[2021-11-22] MEDS: MONTELUKAST 10 MG TAB PO SCH (22:25)
[2021-11-22 23:05] VITALS: BP 157/68
[2021-11-22] MEDS: POLYVINYL ALCOHOL OPHTH SOLN 15 ML(LIQUITEARS) OU SCH (23:18)
[2021-11-23] VITALS (9 sets, daily range): BP systolic 112–152; BP diastolic 53–70; O2SAT 94–96
[2021-11-23] MEDS: IPRATROPIUM 0.5MG/ALBUTEROL 2.5MG INH SOL UD 3ML (DUONEB) NEB SCH ×4 (02:30→19:54)
[2021-11-23] MEDS: methylPREDNISolone 40MG 1ML VIAL IV SCH (06:42)
[2021-11-23 08:11] LABS: BASO % 0.2 % (0.0-1.0); HEMATOCRIT 31.4 % (42.0-52.0); HEMOGLOBIN 10.7 g/dl (13.5-17.5); LYMPH # 1.9 10^3/uL (1.5-5.0); LYMPH % 15.8 % (24.0-44.0); MEAN CORPUSCULAR HEMOGLOBIN 28.7 pg (27.0-33.0); MEAN CORPUSCULAR HGB CONC 34.1 g/dl (32.0-36.5); MEAN CORPUSCULAR VOLUME 84.2 fl (80.0-96.0); MONO # 0.6 10^3/uL (0.0-0.8); MONO % 4.7 % (2.0-8.0); NEUTROPHILS # 9.5 10^3/uL (1.5-8.5); NEUTROPHILS % 78.6 % (36.0-66.0); PLATELET COUNT, AUTOMATED 277 10^3/uL (150-450); RED BLOOD COUNT 3.73 10^6/uL (4.30-6.10)
[2021-11-23] MEDS: ADVAIR HFA 230/21MCG INHALER INH SCH ×2 (08:19→19:54)
[2021-11-23 08:38] LABS: ALBUMIN 2.5 GM/DL (3.2-5.2); BILIRUBIN,DIRECT 0.1 MG/DL (0.0-0.2); BILIRUBIN,TOTAL 0.3 MG/DL (0.2-1.0); CALCIUM LEVEL 8.2 MG/DL (8.8-10.2); CREATININE FOR GFR 2.34 MG/DL (0.70-1.30); GLOMERULAR FILTRATION RATE 28.8 (>42); MAGNESIUM LEVEL 1.9 MG/DL (1.8-2.4); POTASSIUM SERUM 3.9 MEQ/L (3.5-5.1); TOTAL PROTEIN 6.5 GM/DL (6.4-8.2)
[2021-11-23] MEDS ORDERED: PREVNAR 13 VACCINE SYRINGE IM ONE (09:00)
[2021-11-23] MEDS ORDERED: FUROSEMIDE 40MG/4ML VIAL (J1940) IV SCH (09:00)
[2021-11-23] MEDS ORDERED: FLUBLOK(EGG FREE)(QUAD)INFLUENZA VACC 0.5ML SYRINGE 18YRS & OLDER IM ONE (09:00)
[2021-11-23] MEDS: POLYVINYL ALCOHOL OPHTH SOLN 15 ML(LIQUITEARS) OU SCH ×3 (09:24→20:38)
[2021-11-23] MEDS: LEVEMIR (INSULIN DETEMIR) 1 UNITS/0.01ML SC SCH (09:25)
[2021-11-23] MEDS: HumaLOG INSULIN (NovoLOG) PER UNIT SC SCH ×4 (09:25→20:50)
[2021-11-23] MEDS: HEPARIN SOD (PORCINE) 5000UNITS/ML 1ML VIAL/SYRINGE SC SCH ×2 (09:25→20:43)
[2021-11-23] MEDS: OMEPRAZOLE 20MG CAP PO SCH (09:26)
[2021-11-23] MEDS: OCUVITE 1 TAB PO SCH ×2 (09:26→20:35)
[2021-11-23] MEDS: dexameTHASONE 20MG/5ML VIAL (J1100 PER 1MG) IV SCH (09:26)
[2021-11-23] MEDS: ASPIRIN 81MG ENTERIC TABLET PO SCH (09:26)
[2021-11-23] MEDS: FENOFIBRATE 145MG TABLET (TRICOR) PO SCH (09:26)
[2021-11-23] MEDS: CARVedilol 12.5 MG TAB PO SCH ×2 (09:27→20:35)
[2021-11-23] MEDS: FUROSEMIDE 40 MG TAB PO SCH (09:27)
[2021-11-23] MEDS: DIGOXIN 0.125 MG TAB PO SCH (09:27)
[2021-11-23] MEDS ORDERED: REMDESIVIR 100 MG in NS 250 ML IV SCH (20:00)
[2021-11-23] MEDS: SIMVASTATIN 40 MG TAB PO SCH (20:35)
[2021-11-23] MEDS: MONTELUKAST 10 MG TAB PO SCH (20:35)
[2021-11-23] MEDS ORDERED: SODIUM CHLORIDE 0.9% INJ 10 ML SYR IV SCH (21:00)
[2021-11-24] VITALS: BP 148/68; O2SAT 99
[2021-11-24] MEDS: IPRATROPIUM 0.5MG/ALBUTEROL 2.5MG INH SOL UD 3ML (DUONEB) NEB SCH ×2 (02:00→07:47)
[2021-11-24 04:00] VITALS: BP 134/62; O2SAT 96
[2021-11-24 06:19] LABS: BASO % 0.1 % (0.0-1.0); HEMATOCRIT 32.2 % (42.0-52.0); LYMPH # 2.3 10^3/uL (1.5-5.0); LYMPH % 15.8 % (24.0-44.0); MEAN CORPUSCULAR HEMOGLOBIN 28.8 pg (27.0-33.0); MEAN CORPUSCULAR HGB CONC 34.2 g/dl (32.0-36.5); MEAN CORPUSCULAR VOLUME 84.3 fl (80.0-96.0); MONO # 1.1 10^3/uL (0.0-0.8); MONO % 7.8 % (2.0-8.0); NEUTROPHILS # 10.9 10^3/uL (1.5-8.5); NEUTROPHILS % 75.5 % (36.0-66.0); PLATELET COUNT, AUTOMATED 317 10^3/uL (150-450); RED BLOOD COUNT 3.82 10^6/uL (4.30-6.10); WHITE BLOOD COUNT 14.4 10^3/uL (4.0-10.0)
[2021-11-24 06:44] LABS: INR 1.14
[2021-11-24 06:45] LABS: PARTIAL THROMBOPLASTIN TIME 43.4 SECONDS (25.9-37.0)
[2021-11-24 06:56] LABS: ALBUMIN 2.8 GM/DL (3.2-5.2); BILIRUBIN,DIRECT 0.1 MG/DL (0.0-0.2); BILIRUBIN,TOTAL 0.2 MG/DL (0.2-1.0); CALCIUM LEVEL 8.7 MG/DL (8.8-10.2); CREATININE FOR GFR 2.53 MG/DL (0.70-1.30); GLOMERULAR FILTRATION RATE 26.4 (>42); MAGNESIUM LEVEL 2.1 MG/DL (1.8-2.4); TOTAL PROTEIN 6.6 GM/DL (6.4-8.2)
[2021-11-24 07:17] VITALS: BP 128/62
[2021-11-24] MEDS: ADVAIR HFA 230/21MCG INHALER INH SCH (07:47)
[2021-11-24] MEDS: dexameTHASONE 20MG/5ML VIAL (J1100 PER 1MG) IV SCH (07:57)
[2021-11-24 07:58] VITALS: BP 128/62
[2021-11-24] MEDS: OMEPRAZOLE 20MG CAP PO SCH (07:58)
[2021-11-24] MEDS: FUROSEMIDE 40 MG TAB PO SCH (07:58)
[2021-11-24] MEDS: ASPIRIN 81MG ENTERIC TABLET PO SCH (07:58)
[2021-11-24] MEDS: FENOFIBRATE 145MG TABLET (TRICOR) PO SCH (07:58)
[2021-11-24] MEDS: OCUVITE 1 TAB PO SCH (07:58)
[2021-11-24] MEDS: CARVedilol 12.5 MG TAB PO SCH (07:58)
[2021-11-24] MEDS: HEPARIN SOD (PORCINE) 5000UNITS/ML 1ML VIAL/SYRINGE SC SCH (07:59)
[2021-11-24] MEDS: DIGOXIN 0.125 MG TAB PO SCH (07:59)
[2021-11-24] MEDS: LEVEMIR (INSULIN DETEMIR) 1 UNITS/0.01ML SC SCH (08:00)
[2021-11-24] MEDS: HumaLOG INSULIN (NovoLOG) PER UNIT SC SCH (08:01)
[2021-11-24] MEDS ORDERED: PRED20TA PO (09:01)
[2021-11-24] MEDS ORDERED: IPRA0.00 NEB (10:28)
== END 2021-11-24 11:35 | disposition home or self-care (01) | DRG 177 ==
LOC: M ED 18:00 → UNDOADMIN 21:07 → M ED INP 21:07 → EEVIPCON 11-22 00:07 → M ED INP 11-22 00:07 → ENRESERV 11-22 14:45 → M 4MAIN 11-22 16:00
PROVIDERS: ADMIT Internal Medicine; ATTEND Internal Medicine
PROC: XW033E5 Introduction of Remdesivir Anti-infective into Peripheral Vein, Percutaneous Approach, New Technology Group 5 (ICD-10-PCS; principal; 2021-11-22)
PROC: 3E0333Z Introduction of Anti-inflammatory into Peripheral Vein, Percutaneous Approach (ICD-10-PCS; 2021-11-22)
DX: U07.1 COVID-19 (principal); J12.82 Pneumonia due to coronavirus disease 2019; I50.33 Acute on chronic diastolic (congestive) heart failure; G93.41 Metabolic encephalopathy; J96.01 Acute respiratory failure with hypoxia; I24.8 Other forms of acute ischemic heart disease; J45.901 Unspecified asthma with (acute) exacerbation; N17.9 Acute kidney failure, unspecified; E11.9 Type 2 diabetes mellitus without complications; I25.10 Atherosclerotic heart disease of native coronary artery without angina pectoris; D64.9 Anemia, unspecified; N18.9 Chronic kidney disease, unspecified; E78.5 Hyperlipidemia, unspecified; Z79.82 Long term (current) use of aspirin; Z79.899 Other long term (current) drug therapy; Z79.84 Long term (current) use of oral hypoglycemic drugs; Z95.1 Presence of aortocoronary bypass graft; Z99.81 Dependence on supplemental oxygen

== ENCOUNTER 2021-12-01 14:26 | Observation (INO) | payer MEDICARE ==
[~2021-12-01] VITALS: Ht 170.2 cm; Wt 100.6 kg
[~2021-12-01 14:26] MED LIST changes: +IPRA0.00 NEB; +LISI5TAB11 PO; +PRED20TA PO; +PRESCAP PO; +TRAD5TAB PO
[2021-12-01] MEDS ORDERED: NS 1,000 ML IV ONE (15:00)
[2021-12-01 15:41] LABS: BASO % 0.2 % (0.0-1.0); EOS # 0.2 10^3/uL (0.0-0.5); EOS % 2.1 % (0.0-3.0); HEMATOCRIT 37.2 % (42.0-52.0); HEMOGLOBIN 12.2 g/dl (13.5-17.5); LYMPH # 2.7 10^3/uL (1.5-5.0); LYMPH % 24.4 % (24.0-44.0); MEAN CORPUSCULAR HEMOGLOBIN 28.5 pg (27.0-33.0); MEAN CORPUSCULAR HGB CONC 32.8 g/dl (32.0-36.5); MEAN CORPUSCULAR VOLUME 86.9 fl (80.0-96.0); MONO # 1.2 10^3/uL (0.0-0.8); MONO % 10.5 % (2.0-8.0); NEUTROPHILS # 6.8 10^3/uL (1.5-8.5); NEUTROPHILS % 60.9 % (36.0-66.0); PLATELET COUNT, AUTOMATED 233 10^3/uL (150-450); RED BLOOD COUNT 4.28 10^6/uL (4.30-6.10); WHITE BLOOD COUNT 11.2 10^3/uL (4.0-10.0)
[2021-12-01 16:10] LABS: ALBUMIN 2.8 GM/DL (3.2-5.2); BILIRUBIN,DIRECT 0.2 MG/DL (0.0-0.2); BILIRUBIN,TOTAL 0.4 MG/DL (0.2-1.0); THYROID STIMULATING HORMONE 2.74 uIU/ML (0.358-3.740); TOTAL PROTEIN 5.7 GM/DL (6.4-8.2)
[2021-12-01 17:38] LABS: DIGOXIN LEVEL 1.3 NG/ML (0.5-2.0)
[2021-12-01] MEDS ORDERED: GLUCAGON INJ 1MG VIAL SC PRN (19:05)
[2021-12-01] MEDS ORDERED: IPRATROPIUM 0.5MG/ALBUTEROL 2.5MG INH SOL UD 3ML (DUONEB) NEB PRN (19:05)
[2021-12-01] MEDS ORDERED: ACETAMINOPHEN TAB 650MG DOSE (2X325MG) PO PRN (19:05)
[2021-12-01] MEDS ORDERED: GLUCOSE 4GM CHEW TABLET PO PRN (19:05)
[2021-12-01] MEDS ORDERED: DEXTROSE 50% 50 ML SYRINGE IV PRN (19:05)
[2021-12-01] MEDS: FUROSEMIDE 20MG/2ML VIAL (J1940) IV SCH (19:56)
[2021-12-01] MEDS: ADVAIR HFA 230/21MCG INHALER INH SCH (20:00)
[2021-12-01 20:42] LABS: HEMOGLOBIN A1c 9.4 %
[2021-12-01 20:43] LABS: RSV AMPLIFICATION NEGATIVE (NEGATIVE)
[2021-12-01] MEDS: OCUVITE 1 TAB PO SCH (21:00)
[2021-12-01] MEDS: CARVedilol 12.5 MG TAB PO SCH (21:00)
[2021-12-01] MEDS ORDERED: HumaLOG INSULIN (NovoLOG) PER UNIT SC SCH (21:00)
[2021-12-01] MEDS ORDERED: MONTELUKAST 10 MG TAB PO SCH (21:00)
[2021-12-01] MEDS ORDERED: SIMVASTATIN 40 MG TAB PO SCH (21:00)
[2021-12-01] MEDS ORDERED: **hydrALAZINE** 10 MG TAB PO ONE (21:00)
[2021-12-01] MEDS ORDERED: PREGABALIN 75 MG CAP(LYRICA) PO SCH (21:00)
[2021-12-01] MEDS ORDERED: hydrOXYzine 25 MG TAB PO PRN (21:10)
[2021-12-01] MEDS ORDERED: RAMELTEON 8 MG TAB (ROZEREM) PO PRN (21:10)
[2021-12-01] MEDS ORDERED: SPIR12.9 INH (21:29)
[2021-12-01] MEDS ORDERED: IPRA0.00 INH (21:29)
[2021-12-01] MEDS ORDERED: HOME MED LIST COMPLETE! XX SCH (21:30)
[2021-12-01 21:43] LABS: VENOUS HCO3 28.9 MEQ/L (23.0-27.0); VENOUS O2 SATURATION 92.5 % (60.0-80.0); VENOUS PARTIAL PRESSURE CO2 44.2 mmHg (38.0-50.0); VENOUS PARTIAL PRESSURE O2 62.9 mmHg (30.0-50.0); VENOUS PH 7.433 UNITS (7.330-7.430); VENOUS TOTAL CO2 30.2 MEQ/L (24.0-28.0)
[2021-12-02] VITALS (9 sets, daily range): BP systolic 118–222; BP diastolic 56–92; O2SAT 92–95
[2021-12-02] MEDS ORDERED: CARVedilol 12.5 MG TAB PO ONE (01:00)
[2021-12-02 06:37] LABS: BASO % 0.2 % (0.0-1.0); EOS # 0.3 10^3/uL (0.0-0.5); EOS % 2.3 % (0.0-3.0); HEMATOCRIT 35.5 % (42.0-52.0); HEMOGLOBIN 11.5 g/dl (13.5-17.5); LYMPH # 2.6 10^3/uL (1.5-5.0); LYMPH % 24.4 % (24.0-44.0); MEAN CORPUSCULAR HEMOGLOBIN 28.5 pg (27.0-33.0); MEAN CORPUSCULAR HGB CONC 32.4 g/dl (32.0-36.5); MEAN CORPUSCULAR VOLUME 87.9 fl (80.0-96.0); MONO # 1.1 10^3/uL (0.0-0.8); MONO % 10.3 % (2.0-8.0); NEUTROPHILS # 6.6 10^3/uL (1.5-8.5); NEUTROPHILS % 61.3 % (36.0-66.0); PLATELET COUNT, AUTOMATED 234 10^3/uL (150-450); RED BLOOD COUNT 4.04 10^6/uL (4.30-6.10); WHITE BLOOD COUNT 10.8 10^3/uL (4.0-10.0)
[2021-12-02 07:04] LABS: CALCIUM LEVEL 8.5 MG/DL (8.8-10.2); CREATININE FOR GFR 1.29 MG/DL (0.70-1.30); GLOMERULAR FILTRATION RATE 57.3 (>42); POTASSIUM SERUM 3.9 MEQ/L (3.5-5.1)
[2021-12-02] MEDS: ADVAIR HFA 230/21MCG INHALER INH SCH (08:00)
[2021-12-02] MEDS: OCUVITE 1 TAB PO SCH (08:27)
[2021-12-02] MEDS: FUROSEMIDE 20MG/2ML VIAL (J1940) IV SCH (08:28)
[2021-12-02] MEDS: CARVedilol 12.5 MG TAB PO SCH (08:29)
[2021-12-02] MEDS: HumaLOG INSULIN (NovoLOG) PER UNIT SC SCH ×2 (08:30→12:09)
[2021-12-02] MEDS ORDERED: ENOXAPARIN 40MG/0.4ML SYRINGE (J1650 PER 10MG) SC SCH (09:00)
[2021-12-02] MEDS ORDERED: ASPIRIN 81MG ENTERIC TABLET PO SCH (09:00)
[2021-12-02] MEDS ORDERED: FENOFIBRATE 145MG TABLET (TRICOR) PO SCH (09:00)
[2021-12-02] MEDS ORDERED: OMEPRAZOLE 20MG CAP PO SCH (09:00)
[2021-12-02] MEDS ORDERED: DIGOXIN 0.125 MG TAB PO SCH (09:00)
[2021-12-02] MEDS ORDERED: LASI40TA9 PO (14:07)
[2021-12-02] MEDS ORDERED: FUROSEMIDE 20MG/2ML VIAL (J1940) IV ONE (15:00)
[2021-12-03] MEDS ORDERED: FLUBLOK(EGG FREE)(QUAD)INFLUENZA VACC 0.5ML SYRINGE 18YRS & OLDER IM ONE (09:00)
[2021-12-03] MEDS ORDERED: FLUBLOK(EGG FREE)(QUAD)INFLUENZA VACC 0.5ML SYRINGE 18YRS & OLDER IM SCH (09:00)
== END 2021-12-02 15:05 | disposition home health service (06) ==
LOC: M ED 14:26 → M ED INP 14:27 → M 4MAIN 12-02
PROVIDERS: ADMIT Family Medicine; ATTEND Internal Medicine Nephrology
DX: I50.9 Heart failure, unspecified (principal); R53.1 Weakness; Z86.16 Personal history of COVID-19; F03.90 Unspecified dementia, unspecified severity, without behavioral disturbance, psychotic disturbance, mood disturbance, and anxiety; D72.829 Elevated white blood cell count, unspecified; I25.10 Atherosclerotic heart disease of native coronary artery without angina pectoris; J44.9 Chronic obstructive pulmonary disease, unspecified; E11.42 Type 2 diabetes mellitus with diabetic polyneuropathy; E11.22 Type 2 diabetes mellitus with diabetic chronic kidney disease; N18.30 Chronic kidney disease, stage 3 unspecified; I13.0 Hypertensive heart and chronic kidney disease with heart failure and stage 1 through stage 4 chronic kidney disease, or unspecified chronic kidney disease; K21.9 Gastro-esophageal reflux disease without esophagitis; I67.82 Cerebral ischemia; J45.909 Unspecified asthma, uncomplicated; H91.90 Unspecified hearing loss, unspecified ear; Z97.4 Presence of external hearing-aid; Z91.81 History of falling; H25.9 Unspecified age-related cataract; F05 Delirium due to known physiological condition; Z79.899 Other long term (current) drug therapy; Z79.84 Long term (current) use of oral hypoglycemic drugs; Z79.51 Long term (current) use of inhaled steroids; Z79.82 Long term (current) use of aspirin; Z95.2 Presence of prosthetic heart valve; Z95.1 Presence of aortocoronary bypass graft
CPT/HCPCS: 36415; 70450; 71046; 80047; 80048; 80076; 80162; 81001; 82140; 82607; 82803; 83036; 83605; 83880; 83930; 84145; 84443; 84484; 85025; 87040; 87088; 87186; 87631; 93005; 96361; 96372; 96374; 96376; 97116; 97161; 99285; G0378; J1650; J1940

== ENCOUNTER 2022-02-16 12:22 | Emergency (ER) | payer MEDICARE ==
[~2022-02-16] VITALS: Ht 170.2 cm; Wt 109.1 kg
[~2022-02-16 12:22] MED LIST changes: +IPRA0.00 INH; +LASI40TA9 PO; +SPIR12.9 INH
[2022-02-16] MEDS ORDERED: PRED20TA PO (13:16)
[2022-02-16] MEDS ORDERED: LISI5TAB11 PO (13:16)
[2022-02-16 13:33] LABS: VENOUS BASE EXCESS 3.3 (-2.0-2.0); VENOUS HCO3 28.5 MEQ/L (23.0-27.0); VENOUS O2 SATURATION 87.1 % (60.0-80.0); VENOUS PARTIAL PRESSURE CO2 45.5 mmHg (38.0-50.0); VENOUS PARTIAL PRESSURE O2 49.6 mmHg (30.0-50.0); VENOUS PH 7.414 UNITS (7.330-7.430); VENOUS STANDARD HCO3 27.1 MEQ/L; VENOUS TOTAL CO2 29.9 MEQ/L (24.0-28.0)
[2022-02-16 13:39] LABS: BASO % 0.2 % (0.0-1.0); EOS % 0.2 % (0.0-3.0); HEMATOCRIT 37.9 % (42.0-52.0); HEMOGLOBIN 12.4 g/dl (13.5-17.5); LYMPH # 1.1 10^3/uL (1.5-5.0); LYMPH % 6.9 % (24.0-44.0); MEAN CORPUSCULAR HEMOGLOBIN 28.7 pg (27.0-33.0); MEAN CORPUSCULAR HGB CONC 32.7 g/dl (32.0-36.5); MEAN CORPUSCULAR VOLUME 87.7 fl (80.0-96.0); MONO # 0.8 10^3/uL (0.0-0.8); MONO % 4.8 % (2.0-8.0); NEUTROPHILS % 86.5 % (36.0-66.0); PLATELET COUNT, AUTOMATED 337 10^3/uL (150-450); RED BLOOD COUNT 4.32 10^6/uL (4.30-6.10); WHITE BLOOD COUNT 16.2 10^3/uL (4.0-10.0)
[2022-02-16 14:13] LABS: CK-MB VALUE MASS 1.1 NG/ML (<3.6); MB/CK RELATIVE INDEX 2.89 (< OR =4)
[2022-02-16 14:29] LABS: BILIRUBIN,DIRECT 0.2 MG/DL (0.0-0.2); BILIRUBIN,TOTAL 0.9 MG/DL (0.2-1.0); DIGOXIN LEVEL 0.2 NG/ML (0.5-2.0); THYROID STIMULATING HORMONE 1.76 uIU/ML (0.358-3.740); THYROXINE (T4) 8.7 UG/DL (4.5-12.0); TOTAL PROTEIN 6.6 GM/DL (6.4-8.2)
[2022-02-16] MEDS ORDERED: predniSONE 20 MG TAB PO ONE (16:25)
[2022-02-16] MEDS ORDERED: FUROSEMIDE 40MG/4ML VIAL (J1940) IV ONE (16:25)
[2022-02-16] MEDS ORDERED: PRED10TA2 PO (16:32)
[2022-02-16 16:36] VITALS: BP 171/78
== END 2022-02-16 16:50 | disposition left against medical advice (07) ==
LOC: M ED 12:22
DX: J44.1 Chronic obstructive pulmonary disease with (acute) exacerbation (principal); I50.9 Heart failure, unspecified; E78.5 Hyperlipidemia, unspecified; I11.0 Hypertensive heart disease with heart failure; Z95.1 Presence of aortocoronary bypass graft
CPT/HCPCS: 71045; 80047; 80076; 80162; 82550; 82553; 82803; 83605; 83880; 84436; 84443; 84484; 85025; 87040; 87798; 93005; 93041; 94760; 96374; 99284; J1940; J7512

== ENCOUNTER → 2022-02-18 | Outpatient (REF) | payer MEDICARE ==
[2022-02-18 13:50] LABS: ALBUMIN 2.9 GM/DL (3.2-5.2); ALT/SGPT 18 U/L (12-78); BILIRUBIN,TOTAL 0.3 MG/DL (0.2-1.0); BLOOD UREA NITROGEN 61 MG/DL (7-18); CALCIUM LEVEL 9.7 MG/DL (8.8-10.2); CARBON DIOXIDE LEVEL 33 MEQ/L (21-32); CHLORIDE LEVEL 93 MEQ/L (98-107); CREATININE FOR GFR 1.66 MG/DL (0.70-1.30); FOLATE 11.7 NG/ML; GLOMERULAR FILTRATION RATE 42.9 (>42); GLUCOSE, FASTING 452 MG/DL (70-100); POTASSIUM SERUM 4.6 MEQ/L (3.5-5.1); SODIUM LEVEL 133 MEQ/L (136-145); TOTAL PROTEIN 6.4 GM/DL (6.4-8.2); VITAMIN B12 LEVEL 382 PG/ML
[2022-02-18 14:08] LABS: HEMOGLOBIN A1c 8.6 %
== END ==
LOC: M SFHCADAM 11:37
PROVIDERS: ATTEND Physician Assistant
DX: E11.69 Type 2 diabetes mellitus with other specified complication (principal); E53.8 Deficiency of other specified B group vitamins; R60.9 Edema, unspecified; N18.4 Chronic kidney disease, stage 4 (severe)

== ENCOUNTER 2022-03-31 18:43 | Emergency (ER) | payer MEDICARE ==
[~2022-03-31] VITALS: Ht 170.2 cm; Wt 104.8 kg
[2022-03-31 18:45] VITALS: BP 180/90
== END 2022-04-01 01:21 | disposition left against medical advice (07) ==
LOC: M ED 18:43
DX: R10.9 Unspecified abdominal pain (principal); I11.0 Hypertensive heart disease with heart failure; I50.9 Heart failure, unspecified; I25.10 Atherosclerotic heart disease of native coronary artery without angina pectoris; E78.5 Hyperlipidemia, unspecified; K21.9 Gastro-esophageal reflux disease without esophagitis; Z79.82 Long term (current) use of aspirin; Z79.899 Other long term (current) drug therapy; Z98.890 Other specified postprocedural states; Z95.1 Presence of aortocoronary bypass graft

== ENCOUNTER 2022-04-06 17:26 | Inpatient (IN) | payer MEDICARE ==
[~2022-04-06] VITALS: Ht 170.2 cm; Wt 106.7 kg
[2022-04-06] MEDS ORDERED: IPRATROPIUM 0.5MG/ALBUTEROL 2.5MG INH SOL UD 3ML (DUONEB) NEB ONE (18:05)
[2022-04-06] MEDS ORDERED: methylPREDNISolone 125MG 2ML VIAL IV ONE (18:05)
[2022-04-06] MEDS ORDERED: FUROSEMIDE 100MG/10ML VIAL (J1940) IV ONE (18:05)
[2022-04-06] MEDS ORDERED: ALBUTEROL SULFATE 2.5 MG/0.5 ML INH NEB SOLN NEB ONE (18:05)
[2022-04-06 18:30] LABS: VENOUS BASE EXCESS 6.5 (-2.0-2.0); VENOUS HCO3 33.3 MEQ/L (23.0-27.0); VENOUS O2 SATURATION 92.3 % (60.0-80.0); VENOUS PARTIAL PRESSURE CO2 57.1 mmHg (38.0-50.0); VENOUS PARTIAL PRESSURE O2 64.5 mmHg (30.0-50.0); VENOUS PH 7.384 UNITS (7.330-7.430); VENOUS STANDARD HCO3 30.3 MEQ/L; VENOUS TOTAL CO2 35.1 MEQ/L (24.0-28.0)
[2022-04-06 18:36] LABS: BASO # 0.1 10^3/uL (0.0-0.2); BASO % 1.1 % (0.0-1.0); EOS # 0.5 10^3/uL (0.0-0.5); EOS % 7.8 % (0.0-3.0); HEMATOCRIT 38.4 % (42.0-52.0); HEMOGLOBIN 12.8 g/dl (13.5-17.5); LYMPH # 1.9 10^3/uL (1.5-5.0); LYMPH % 29.4 % (24.0-44.0); MEAN CORPUSCULAR HEMOGLOBIN 29.2 pg (27.0-33.0); MEAN CORPUSCULAR HGB CONC 33.3 g/dl (32.0-36.5); MEAN CORPUSCULAR VOLUME 87.5 fl (80.0-96.0); MONO # 0.8 10^3/uL (0.0-0.8); MONO % 12.1 % (2.0-8.0); NEUTROPHILS # 3.2 10^3/uL (1.5-8.5); NEUTROPHILS % 49.1 % (36.0-66.0); PLATELET COUNT, AUTOMATED 238 10^3/uL (150-450); RED BLOOD COUNT 4.39 10^6/uL (4.30-6.10); WHITE BLOOD COUNT 6.4 10^3/uL (4.0-10.0)
[2022-04-06 19:18] LABS: ALBUMIN 3.4 GM/DL (3.2-5.2); BILIRUBIN,DIRECT 0.2 MG/DL (0.0-0.2); BILIRUBIN,TOTAL 0.4 MG/DL (0.2-1.0); CALCIUM LEVEL 8.8 MG/DL (8.8-10.2); CREATININE FOR GFR 1.85 MG/DL (0.70-1.30); DIGOXIN LEVEL 2.3 NG/ML (0.5-2.0); GLOMERULAR FILTRATION RATE 37.8 (>42); THYROID STIMULATING HORMONE 3.28 uIU/ML (0.358-3.740); TOTAL PROTEIN 6.9 GM/DL (6.4-8.2)
[2022-04-06] MEDS ORDERED: cefTRIAXone SOD 1 GM in D5W MINI-BAG PLUS 50 ML IV ONE (19:40)
[2022-04-06] MEDS ORDERED: AZITHROMYCIN INJ 500 MG, VIAL MATE ADAPTER 1 EACH in NS 250 ML IV ONE (19:40)
[2022-04-06] MEDS ORDERED: GLUCAGON INJ 1MG VIAL SC PRN (20:35)
[2022-04-06] MEDS ORDERED: ACETAMINOPHEN TAB 650MG DOSE (2X325MG) PO PRN (20:35)
[2022-04-06] MEDS ORDERED: OFLO3OPSO OU (20:35)
[2022-04-06] MEDS ORDERED: guaiFENesin ER 600 MG TAB PO PRN (20:35)
[2022-04-06] MEDS ORDERED: GLIP5TAB20 PO (20:35)
[2022-04-06] MEDS ORDERED: DEXTROSE 50% 50 ML SYRINGE IV PRN (20:35)
[2022-04-06] MEDS ORDERED: GLUCOSE 4GM CHEW TABLET PO PRN (20:35)
[2022-04-06] MEDS ORDERED: BENZONATATE 100MG CAPSULE PO PRN (20:35)
[2022-04-06] MEDS ORDERED: SIMVASTATIN 40 MG TAB PO SCH (21:00)
[2022-04-06] MEDS ORDERED: INSULIN LISPRO (NovoLOG) PER UNIT SC SCH (21:00)
[2022-04-06] MEDS ORDERED: MONTELUKAST 10 MG TAB PO SCH (21:00)
[2022-04-06] MEDS ORDERED: PREGABALIN 75 MG CAP(LYRICA) PO SCH (21:00)
[2022-04-06 22:50] VITALS: BP 170/72
[2022-04-06] MEDS: IPRATROPIUM 0.5MG/ALBUTEROL 2.5MG INH SOL UD 3ML (DUONEB) NEB SCH (22:50)
[2022-04-06 22:52] LABS: MAGNESIUM LEVEL 2.2 MG/DL (1.8-2.4)
[2022-04-06] MEDS ORDERED: DOXYCYCLINE HYCLATE 100 MG in D5W MINI-BAG PLUS 100 ML IV SCH (23:00)
[2022-04-06] MEDS: methylPREDNISolone 40MG 1ML VIAL IV SCH (23:26)
[2022-04-06] MEDS ORDERED: FURO40TA2 PO (23:50)
[2022-04-06] MEDS ORDERED: GLIP10TA18 PO (23:50)
[2022-04-06] MEDS ORDERED: HOME MED LIST COMPLETE! XX SCH (23:50)
[2022-04-06] MEDS ORDERED: IPRATROPIUM 0.5MG/ALBUTEROL 2.5MG INH SOL UD 3ML (DUONEB) NEB PRN (23:55)
[2022-04-07] MEDS: CARVedilol 12.5 MG TAB PO SCH ×2 (00:58→09:12)
[2022-04-07] MEDS: IPRATROPIUM 0.5MG/ALBUTEROL 2.5MG INH SOL UD 3ML (DUONEB) NEB SCH ×2 (02:00→07:38)
[2022-04-07 02:44] VITALS: O2SAT 96
[2022-04-07 06:00] VITALS: BP 157/69
[2022-04-07] MEDS: methylPREDNISolone 40MG 1ML VIAL IV SCH (06:00)
[2022-04-07] MEDS ORDERED: HEPARIN SOD (PORCINE) 5000UNITS/ML 1ML VIAL/SYRINGE SQ SCH (06:00)
[2022-04-07 06:01] LABS: BASO % 0.1 % (0.0-1.0); HEMATOCRIT 37.6 % (42.0-52.0); HEMOGLOBIN 12.4 g/dl (13.5-17.5); LYMPH # 1.2 10^3/uL (1.5-5.0); LYMPH % 14.2 % (24.0-44.0); MEAN CORPUSCULAR HEMOGLOBIN 28.9 pg (27.0-33.0); MEAN CORPUSCULAR VOLUME 87.6 fl (80.0-96.0); MONO # 0.1 10^3/uL (0.0-0.8); MONO % 0.8 % (2.0-8.0); NEUTROPHILS # 7.3 10^3/uL (1.5-8.5); NEUTROPHILS % 84.3 % (36.0-66.0); PLATELET COUNT, AUTOMATED 230 10^3/uL (150-450); RED BLOOD COUNT 4.29 10^6/uL (4.30-6.10); WHITE BLOOD COUNT 8.6 10^3/uL (4.0-10.0)
[2022-04-07 06:44] LABS: CALCIUM LEVEL 9.4 MG/DL (8.8-10.2); CREATININE FOR GFR 1.97 MG/DL (0.70-1.30); DIGOXIN LEVEL 2.2 NG/ML (0.5-2.0); GLOMERULAR FILTRATION RATE 35.2 (>42); POTASSIUM SERUM 4.2 MEQ/L (3.5-5.1)
[2022-04-07] MEDS ORDERED: INSULIN LISPRO (NovoLOG) PER UNIT SC SCH (07:30)
[2022-04-07] MEDS ORDERED: ADVAIR HFA 230/21MCG INHALER INH SCH (08:00)
[2022-04-07] MEDS ORDERED: FENOFIBRATE 145MG TABLET (TRICOR) PO SCH (09:00)
[2022-04-07] MEDS ORDERED: ASPIRIN 81MG ENTERIC TABLET PO SCH (09:00)
[2022-04-07] MEDS ORDERED: FLUBLOK(EGG FREE)(QUAD)INFLUENZA VACC 0.5ML SYRINGE 18YRS & OLDER IM.IMMUN ONE (09:00)
[2022-04-07] MEDS ORDERED: lisinopriL 5 MG TAB PO SCH (09:00)
[2022-04-07] MEDS ORDERED: OCUVITE 1 TAB PO SCH (09:00)
[2022-04-07] MEDS ORDERED: OFLOXACIN 0.3 % (OCUFLOX) OPTH SOL 5ML OU SCH (09:00)
[2022-04-07] MEDS ORDERED: FUROSEMIDE 40MG/4ML VIAL (J1940) IV SCH ×2 (09:00)
[2022-04-07] MEDS ORDERED: OMEPRAZOLE 20MG CAP PO SCH (09:00)
[2022-04-07 09:10] VITALS: BP 139/76
[2022-04-07] MEDS ORDERED: PRED10TA2 PO (10:51)
[2022-04-07] MEDS ORDERED: CEFD300C41 PO (10:51)
[2022-04-07] MEDS ORDERED: DOXY-350 PO (10:51)
[2022-04-07] MEDS ORDERED: cefTRIAXone SOD 1 GM in D5W MINI-BAG PLUS 50 ML IV SCH (20:00)
== END 2022-04-07 11:27 | disposition home health service (06) | DRG 190 ==
LOC: M ED 17:26 → M ED INP 20:35 → M MSPAV 22:49
PROVIDERS: ADMIT Internal Medicine; ATTEND Internal Medicine
DX: J44.1 Chronic obstructive pulmonary disease with (acute) exacerbation (principal); I50.33 Acute on chronic diastolic (congestive) heart failure; J18.9 Pneumonia, unspecified organism; I13.0 Hypertensive heart and chronic kidney disease with heart failure and stage 1 through stage 4 chronic kidney disease, or unspecified chronic kidney disease; J45.909 Unspecified asthma, uncomplicated; I25.10 Atherosclerotic heart disease of native coronary artery without angina pectoris; E78.2 Mixed hyperlipidemia; N18.30 Chronic kidney disease, stage 3 unspecified; E66.9 Obesity, unspecified; K21.9 Gastro-esophageal reflux disease without esophagitis; E11.22 Type 2 diabetes mellitus with diabetic chronic kidney disease; D64.9 Anemia, unspecified; G47.00 Insomnia, unspecified; J44.0 Chronic obstructive pulmonary disease with (acute) lower respiratory infection; Z95.2 Presence of prosthetic heart valve; Z98.41 Cataract extraction status, right eye; Z98.42 Cataract extraction status, left eye; Z95.1 Presence of aortocoronary bypass graft; Z87.891 Personal history of nicotine dependence; Z99.81 Dependence on supplemental oxygen; Z79.82 Long term (current) use of aspirin; Z79.84 Long term (current) use of oral hypoglycemic drugs; Z79.899 Other long term (current) drug therapy

== ENCOUNTER → 2022-04-20 | Outpatient (REF) | payer MEDICARE ==
[~2022-04-20] MED LIST changes: +CEFD300C41 PO; +DOXY-350 PO; +GLIP5TAB20 PO; +OFLO3OPSO OU
[2022-04-20 13:04] LABS: BASO % 0.1 % (0.0-1.0); HEMATOCRIT 38.5 % (42.0-52.0); HEMOGLOBIN 12.6 g/dl (13.5-17.5); LYMPH # 1.6 10^3/uL (1.5-5.0); LYMPH % 14.4 % (24.0-44.0); MEAN CORPUSCULAR HEMOGLOBIN 28.8 pg (27.0-33.0); MEAN CORPUSCULAR HGB CONC 32.7 g/dl (32.0-36.5); MEAN CORPUSCULAR VOLUME 87.9 fl (80.0-96.0); MONO # 0.4 10^3/uL (0.0-0.8); MONO % 3.2 % (2.0-8.0); NEUTROPHILS # 8.9 10^3/uL (1.5-8.5); NEUTROPHILS % 80.9 % (36.0-66.0); PLATELET COUNT, AUTOMATED 234 10^3/uL (150-450); RED BLOOD COUNT 4.38 10^6/uL (4.30-6.10); WHITE BLOOD COUNT 10.9 10^3/uL (4.0-10.0)
[2022-04-20 13:34] LABS: ERYTHROCYTE SEDIMENTATION RATE 30 mm/hr (0-20)
== END ==
LOC: M SFHCADAM 10:49
PROVIDERS: ATTEND Physician Assistant
DX: R78.81 Bacteremia (principal)

== ENCOUNTER 2022-05-12 21:06 | Emergency (ER) | payer MEDICARE ==
[~2022-05-12] VITALS: Ht 170.2 cm; Wt 95.5 kg
[2022-05-12] MEDS ORDERED: FURO40TA2 PO (21:29)
[2022-05-12 22:44] LABS: BASO # 0.1 10^3/uL (0.0-0.2); BASO % 0.5 % (0.0-1.0); EOS # 0.1 10^3/uL (0.0-0.5); EOS % 1.2 % (0.0-3.0); HEMATOCRIT 34.8 % (42.0-52.0); HEMOGLOBIN 11.5 g/dl (13.5-17.5); LYMPH # 1.6 10^3/uL (1.5-5.0); LYMPH % 14.9 % (24.0-44.0); MEAN CORPUSCULAR HEMOGLOBIN 28.9 pg (27.0-33.0); MEAN CORPUSCULAR VOLUME 87.4 fl (80.0-96.0); MONO # 0.8 10^3/uL (0.0-0.8); MONO % 7.6 % (2.0-8.0); NEUTROPHILS # 8.2 10^3/uL (1.5-8.5); NEUTROPHILS % 75.1 % (36.0-66.0); PLATELET COUNT, AUTOMATED 274 10^3/uL (150-450); RED BLOOD COUNT 3.98 10^6/uL (4.30-6.10)
[2022-05-12 22:58] LABS: PROTHROMBIN TIME 13.6 SECONDS (12.7-14.5)
[2022-05-12] MEDS ORDERED: methylPREDNISolone 125MG 2ML VIAL IV ONE (23:15)
[2022-05-12 23:16] LABS: CK-MB VALUE MASS 1.9 NG/ML (<3.6); MB/CK RELATIVE INDEX 4.52 (< OR =4)
[2022-05-12 23:21] LABS: ALBUMIN 3.3 GM/DL (3.2-5.2); BILIRUBIN,DIRECT 0.1 MG/DL (0.0-0.2); BILIRUBIN,TOTAL 0.5 MG/DL (0.2-1.0); CALCIUM LEVEL 10.3 MG/DL (8.8-10.2); CREATININE FOR GFR 1.78 MG/DL (0.70-1.30); GLOMERULAR FILTRATION RATE 39.5 (>42); POTASSIUM SERUM 4.2 MEQ/L (3.5-5.1); THYROID STIMULATING HORMONE 2.09 uIU/ML (0.358-3.740); TOTAL PROTEIN 6.3 GM/DL (6.4-8.2)
[2022-05-12] MEDS ORDERED: PRED10TA2 PO (23:36)
[2022-05-12] MEDS ORDERED: predniSONE 20 MG TAB PO ONE (23:50)
[2022-05-13] VITALS: BP 174/82
== END 2022-05-13 00:27 | disposition left against medical advice (07) ==
LOC: M ED 21:06
DX: J44.1 Chronic obstructive pulmonary disease with (acute) exacerbation (principal); B34.0 Adenovirus infection, unspecified; E11.9 Type 2 diabetes mellitus without complications; I10 Essential (primary) hypertension; I50.9 Heart failure, unspecified; E78.5 Hyperlipidemia, unspecified; K21.9 Gastro-esophageal reflux disease without esophagitis; Z98.84 Bariatric surgery status; Z79.899 Other long term (current) drug therapy; Z79.84 Long term (current) use of oral hypoglycemic drugs; Z79.82 Long term (current) use of aspirin; Z87.891 Personal history of nicotine dependence
CPT/HCPCS: 36415; 71045; 80048; 80076; 82550; 82553; 83880; 84443; 84484; 85025; 85610; 87040; 87486; 87581; 87633; 87798; 93005; 93041; 94760; 99285; J7512

== ENCOUNTER 2022-05-15 11:42 | Emergency (ER) | payer MEDICARE ==
[~2022-05-15] VITALS: Ht 170.2 cm; Wt 90.9 kg
[2022-05-15] MEDS ORDERED: methylPREDNISolone 125MG 2ML VIAL IV ONE (12:30)
[2022-05-15 13:08] LABS: BASO % 0.2 % (0.0-1.0); LYMPH # 1.7 10^3/uL (1.5-5.0); LYMPH % 13.5 % (24.0-44.0); MEAN CORPUSCULAR HEMOGLOBIN 29.1 pg (27.0-33.0); MEAN CORPUSCULAR HGB CONC 34.3 g/dl (32.0-36.5); MONO # 1.2 10^3/uL (0.0-0.8); MONO % 9.4 % (2.0-8.0); NEUTROPHILS # 9.5 10^3/uL (1.5-8.5); NEUTROPHILS % 74.9 % (36.0-66.0); PLATELET COUNT, AUTOMATED 341 10^3/uL (150-450); RED BLOOD COUNT 4.12 10^6/uL (4.30-6.10); WHITE BLOOD COUNT 12.7 10^3/uL (4.0-10.0)
[2022-05-15] MEDS ORDERED: IPRATROPIUM 0.5MG/ALBUTEROL 2.5MG INH SOL UD 3ML (DUONEB) NEB ONE (13:40)
[2022-05-15 13:47] LABS: RSV AMPLIFICATION NEGATIVE (NEGATIVE)
[2022-05-15 14:01] LABS: BILIRUBIN,DIRECT 0.2 MG/DL (0.0-0.2); BILIRUBIN,TOTAL 0.3 MG/DL (0.2-1.0); CALCIUM LEVEL 8.6 MG/DL (8.8-10.2); CREATININE FOR GFR 2.03 MG/DL (0.70-1.30); DIGOXIN LEVEL 2.3 NG/ML (0.5-2.0); POTASSIUM SERUM 4.5 MEQ/L (3.5-5.1); THYROID STIMULATING HORMONE 1.05 uIU/ML (0.358-3.740); THYROXINE (T4) 7.5 UG/DL (4.5-12.0)
[2022-05-15 14:40] VITALS: O2SAT 96
[2022-05-15] MEDS ORDERED: NS 1,000 ML IV SCH (14:45)
[2022-05-15] MEDS ORDERED: NS 500 ML IV ONE (14:45)
[2022-05-15 17:01] VITALS: BP 185/78
== END 2022-05-15 17:55 | disposition left against medical advice (07) ==
LOC: M ED 11:42
DX: J44.1 Chronic obstructive pulmonary disease with (acute) exacerbation (principal); B34.0 Adenovirus infection, unspecified; E86.0 Dehydration; I72.8 Aneurysm of other specified arteries; R89.2 Abnormal level of other drugs, medicaments and biological substances in specimens from other organs, systems and tissues; Z53.20 Procedure and treatment not carried out because of patient's decision for unspecified reasons; I70.0 Atherosclerosis of aorta; Z95.1 Presence of aortocoronary bypass graft; I11.0 Hypertensive heart disease with heart failure; I50.9 Heart failure, unspecified; E11.9 Type 2 diabetes mellitus without complications; E78.5 Hyperlipidemia, unspecified; G93.41 Metabolic encephalopathy; Z87.891 Personal history of nicotine dependence; Z79.82 Long term (current) use of aspirin; Z79.899 Other long term (current) drug therapy
CPT/HCPCS: 71045; 71250; 74176; 80048; 80076; 80162; 83605; 83690; 83880; 84436; 84443; 84484; 85025; 87040; 87631; 93005; 93041; 94640; 96361; 96374; 99285; J2930

== ENCOUNTER → 2022-05-25 | Outpatient (REF) | payer MEDICARE ==
[2022-05-27 01:04] LABS: HEMOGLOBIN A1c 8.7 %
== END ==
LOC: M SFHCADAM 15:12
PROVIDERS: ATTEND Physician Assistant
DX: N18.4 Chronic kidney disease, stage 4 (severe) (principal); E11.22 Type 2 diabetes mellitus with diabetic chronic kidney disease

== ENCOUNTER 2022-06-22 07:26 | Inpatient (IN) | payer MEDICARE ==
[~2022-06-22] VITALS: Ht 170.2 cm; Wt 106.0 kg
[2022-06-22 07:59] LABS: VENOUS BASE EXCESS -2.1 (-2.0-2.0); VENOUS HCO3 25.5 MEQ/L (23.0-27.0); VENOUS PH 7.276 UNITS (7.330-7.430); VENOUS TOTAL CO2 27.2 MEQ/L (24.0-28.0)
[2022-06-22] MEDS: TIOTROPIUM INHALER/CAPSULE (SPIRIVA) INH SCH (08:00)
[2022-06-22 08:17] LABS: BASO # 0.1 10^3/uL (0.0-0.2); BASO % 0.7 % (0.0-1.0); EOS # 0.3 10^3/uL (0.0-0.5); EOS % 3.9 % (0.0-3.0); HEMATOCRIT 35.4 % (42.0-52.0); HEMOGLOBIN 11.4 g/dl (13.5-17.5); LYMPH # 1.4 10^3/uL (1.5-5.0); LYMPH % 16.1 % (24.0-44.0); MEAN CORPUSCULAR HGB CONC 32.2 g/dl (32.0-36.5); MEAN CORPUSCULAR VOLUME 90.1 fl (80.0-96.0); MONO # 0.8 10^3/uL (0.0-0.8); NEUTROPHILS # 6.1 10^3/uL (1.5-8.5); NEUTROPHILS % 69.8 % (36.0-66.0); PLATELET COUNT, AUTOMATED 187 10^3/uL (150-450); RED BLOOD COUNT 3.93 10^6/uL (4.30-6.10); WHITE BLOOD COUNT 8.8 10^3/uL (4.0-10.0)
[2022-06-22] MEDS ORDERED: IPRATROPIUM 0.5MG/ALBUTEROL 2.5MG INH SOL UD 3ML (DUONEB) NEB ONE (08:25)
[2022-06-22 08:48] LABS: RSV AMPLIFICATION NEGATIVE (NEGATIVE)
[2022-06-22 08:50] LABS: ALBUMIN 3.2 GM/DL (3.2-5.2); BILIRUBIN,DIRECT 0.4 MG/DL (0.0-0.2); BILIRUBIN,TOTAL 0.4 MG/DL (0.2-1.0); CALCIUM LEVEL 8.8 MG/DL (8.8-10.2); CREATININE FOR GFR 1.56 MG/DL (0.70-1.30); GLOMERULAR FILTRATION RATE 46.1 (>42); POTASSIUM SERUM 4.4 MEQ/L (3.5-5.1); THYROID STIMULATING HORMONE 3.65 uIU/ML (0.358-3.740); TOTAL PROTEIN 6.6 GM/DL (6.4-8.2)
[2022-06-22] MEDS ORDERED: DIGOXIN 0.125 MG TAB PO SCH (09:00)
[2022-06-22] MEDS ORDERED: OMEPRAZOLE 20MG CAP PO SCH (09:00)
[2022-06-22] MEDS ORDERED: CARVedilol 12.5 MG TAB PO SCH ×2 (09:00→21:00)
[2022-06-22] MEDS ORDERED: lisinopriL 5 MG TAB PO SCH (09:00)
[2022-06-22] MEDS ORDERED: FUROSEMIDE 40MG/4ML VIAL (J1940) IV ONE (09:55)
[2022-06-22] MEDS ORDERED: GLUCAGON INJ 1MG VIAL SC PRN (11:55)
[2022-06-22] MEDS ORDERED: DEXTROSE 50% 50 ML SYRINGE IV PRN (11:55)
[2022-06-22] MEDS ORDERED: GLUCOSE 4GM CHEW TABLET PO PRN (11:55)
[2022-06-22] MEDS ORDERED: GLIP5TAB20 PO (12:45)
[2022-06-22] MEDS ORDERED: PREG75CA2 PO (12:45)
[2022-06-22] MEDS ORDERED: HOME MED LIST COMPLETE! XX SCH (12:50)
[2022-06-22] MEDS: IPRATROPIUM 0.02% SOLN 0.5MG 2.5ML NEB INH SCH (13:59)
[2022-06-22] MEDS: LEVALBUTEROL 1.25 MG/0.5 ML CONCENTRATE NEB NEB SCH (13:59)
[2022-06-22] MEDS ORDERED: methylPREDNISolone 125MG 2ML VIAL IV ONE (14:00)
[2022-06-22] MEDS ORDERED: predniSONE 20 MG TAB PO SCH (14:12)
[2022-06-22] MEDS: PREGABALIN 75 MG CAP(LYRICA) PO SCH (14:48)
[2022-06-22] MEDS: ASPIRIN 81MG ENTERIC TABLET PO SCH (14:48)
[2022-06-22] MEDS: INSULIN LISPRO (NovoLOG) PER UNIT SC SCH ×3 (14:50→20:55)
[2022-06-22] MEDS: FUROSEMIDE 40MG/4ML VIAL (J1940) IV SCH ×2 (15:15→20:03)
[2022-06-22 15:21] LABS: CK-MB VALUE MASS 21.3 NG/ML (<3.6); MB/CK RELATIVE INDEX 13.15 (< OR =4)
[2022-06-22] MEDS: COMBIVENT RESPIMAT 100-20MCG INHALER 4GM INH SCH ×2 (15:47→19:43)
[2022-06-22 16:00] VITALS: BP 178/76
[2022-06-22 16:17] LABS: CREATININE FOR GFR 1.45 MG/DL (0.70-1.30); GLOMERULAR FILTRATION RATE 50.1 (>42); MAGNESIUM LEVEL 1.9 MG/DL (1.8-2.4); POTASSIUM SERUM 3.8 MEQ/L (3.5-5.1)
[2022-06-22] MEDS ORDERED: ATORVASTATIN 20 MG TAB PO ONE (16:45)
[2022-06-22] MEDS ORDERED: CARVedilol 12.5 MG TAB PO ONE (16:45)
[2022-06-22] MEDS ORDERED: MORPHINE 2 MG/ML 1ML VIAL IV PRN (16:45)
[2022-06-22] MEDS ORDERED: NITROGLYCERIN 0.4 MG SUBL TABLET SL PRN (16:45)
[2022-06-22] MEDS: ENOXAPARIN 100MG/1ML SYRINGE (J1650 PER 10MG) SC SCH (17:31)
[2022-06-22] MEDS: FENOFIBRATE 145MG TABLET (TRICOR) PO SCH (17:33)
[2022-06-22 20:00] VITALS: BP 137/63
[2022-06-22] MEDS: OCUVITE 1 TAB PO SCH (20:03)
[2022-06-22] MEDS: MONTELUKAST 10 MG TAB PO SCH (20:03)
[2022-06-22] MEDS ORDERED: SIMVASTATIN 40 MG TAB PO SCH (21:00)
[2022-06-22 23:04] LABS: CALCIUM LEVEL 8.8 MG/DL (8.8-10.2); CREATININE FOR GFR 1.67 MG/DL (0.70-1.30); GLOMERULAR FILTRATION RATE 42.6 (>42); MAGNESIUM LEVEL 1.8 MG/DL (1.8-2.4)
[2022-06-22 23:05] LABS: CK-MB VALUE MASS 17.5 NG/ML (<3.6); MB/CK RELATIVE INDEX 10.23 (< OR =4)
[2022-06-22] MEDS: methylPREDNISolone 125MG 2ML VIAL IV SCH (23:07)
[2022-06-23] VITALS (7 sets, daily range): BP systolic 122–152; BP diastolic 57–71
[2022-06-23] MEDS: COMBIVENT RESPIMAT 100-20MCG INHALER 4GM INH SCH ×7 (00:21→23:19)
[2022-06-23] MEDS: FUROSEMIDE 40MG/4ML VIAL (J1940) IV SCH (02:31)
[2022-06-23] MEDS: ENOXAPARIN 100MG/1ML SYRINGE (J1650 PER 10MG) SC SCH ×2 (04:34→17:08)
[2022-06-23 04:49] LABS: HEMATOCRIT 35.4 % (42.0-52.0); HEMOGLOBIN 11.7 g/dl (13.5-17.5); MEAN CORPUSCULAR HEMOGLOBIN 29.3 pg (27.0-33.0); MEAN CORPUSCULAR HGB CONC 33.1 g/dl (32.0-36.5); MEAN CORPUSCULAR VOLUME 88.5 fl (80.0-96.0); PLATELET COUNT, AUTOMATED 236 10^3/uL (150-450)
[2022-06-23 05:16] LABS: CALCIUM LEVEL 8.6 MG/DL (8.8-10.2); CREATININE FOR GFR 2.02 MG/DL (0.70-1.30); GLOMERULAR FILTRATION RATE 34.2 (>42); MAGNESIUM LEVEL 1.8 MG/DL (1.8-2.4); POTASSIUM SERUM 4.1 MEQ/L (3.5-5.1)
[2022-06-23] MEDS: methylPREDNISolone 125MG 2ML VIAL IV SCH ×3 (06:28→22:57)
[2022-06-23] MEDS: TIOTROPIUM INHALER/CAPSULE (SPIRIVA) INH SCH (07:23)
[2022-06-23] MEDS: INSULIN LISPRO (NovoLOG) PER UNIT SC SCH ×6 (08:06→20:33)
[2022-06-23] MEDS: FENOFIBRATE 145MG TABLET (TRICOR) PO SCH (08:06)
[2022-06-23] MEDS: ASPIRIN 81MG ENTERIC TABLET PO SCH (08:07)
[2022-06-23] MEDS: OCUVITE 1 TAB PO SCH ×2 (08:07→20:33)
[2022-06-23] MEDS: PREGABALIN 75 MG CAP(LYRICA) PO SCH (08:07)
[2022-06-23] MEDS: CARVedilol 12.5 MG TAB PO SCH ×2 (08:08→20:34)
[2022-06-23] MEDS ORDERED: CLOPIDOGREL 75 MG TAB PO SCH (09:00)
[2022-06-23] MEDS ORDERED: ATORVASTATIN 20 MG TAB PO SCH (09:00)
[2022-06-23] MEDS ORDERED: FAMOTIDINE 20 MG TAB PO SCH (09:00)
[2022-06-23] MEDS ORDERED: LEVEMIR (INSULIN DETEMIR) 1 UNITS/0.01ML SC ONE (12:30)
[2022-06-23] MEDS ORDERED: CLOBETASOL PROPIONATE EMOLLIENT 0.05% CR 60 GM TOP PRN (12:50)
[2022-06-23] MEDS ORDERED: TAMSULOSIN 0.4 MG CAP PO ONE (13:40)
[2022-06-23] MEDS ORDERED: MOM 30ML SUSPENSION UDC PO PRN (15:45)
[2022-06-23] MEDS ORDERED: BISACODYL 5 MG TAB PO PRN (15:45)
[2022-06-23] MEDS ORDERED: SENOKOT S TAB PO PRN (15:45)
[2022-06-23 18:20] LABS: CREATININE FOR GFR 2.69 MG/DL (0.70-1.30); GLOMERULAR FILTRATION RATE 24.6 (>42); POTASSIUM SERUM 4.5 MEQ/L (3.5-5.1)
[2022-06-23 18:21] LABS: CALCIUM LEVEL 8.8 MG/DL (8.8-10.2); CK-MB VALUE MASS 6.2 NG/ML (<3.6); MB/CK RELATIVE INDEX 8.38 (< OR =4)
[2022-06-23] MEDS: MONTELUKAST 10 MG TAB PO SCH (20:34)
[2022-06-23] MEDS ORDERED: LEVEMIR (INSULIN DETEMIR) 1 UNITS/0.01ML SC SCH (21:00)
[2022-06-23 22:47] LABS: CALCIUM LEVEL 8.4 MG/DL (8.8-10.2); CREATININE FOR GFR 2.76 MG/DL (0.70-1.30); GLOMERULAR FILTRATION RATE 23.8 (>42)
[2022-06-24] VITALS: BP 138/62
[2022-06-24 00:58] LABS: CALCIUM LEVEL 8.5 MG/DL (8.8-10.2); CREATININE FOR GFR 2.61 MG/DL (0.70-1.30); GLOMERULAR FILTRATION RATE 25.4 (>42)
[2022-06-24 01:19] LABS: CK-MB VALUE MASS 4.2 NG/ML (<3.6); MB/CK RELATIVE INDEX 6.89 (< OR =4)
[2022-06-24] MEDS: COMBIVENT RESPIMAT 100-20MCG INHALER 4GM INH SCH (03:04)
[2022-06-24 04:00] VITALS: BP 146/67
[2022-06-24] MEDS: ENOXAPARIN 100MG/1ML SYRINGE (J1650 PER 10MG) SC SCH (04:24)
[2022-06-24 04:52] LABS: HEMATOCRIT 32.7 % (42.0-52.0); HEMOGLOBIN 10.8 g/dl (13.5-17.5); MEAN CORPUSCULAR HEMOGLOBIN 28.9 pg (27.0-33.0); MEAN CORPUSCULAR VOLUME 87.4 fl (80.0-96.0); PLATELET COUNT, AUTOMATED 256 10^3/uL (150-450); RED BLOOD COUNT 3.74 10^6/uL (4.30-6.10)
[2022-06-24 05:06] LABS: HEMOGLOBIN A1c 8.6 %
[2022-06-24 05:32] LABS: CALCIUM LEVEL 8.5 MG/DL (8.8-10.2); CHOLESTEROL RISK RATIO 5.888 (<5); CK-MB VALUE MASS 3.2 NG/ML (<3.6); CREATININE FOR GFR 2.73 MG/DL (0.70-1.30); GLOMERULAR FILTRATION RATE 24.1 (>42); MB/CK RELATIVE INDEX 5.82 (< OR =4); POTASSIUM SERUM 4.1 MEQ/L (3.5-5.1)
[2022-06-24] MEDS: methylPREDNISolone 125MG 2ML VIAL IV SCH (06:12)
[2022-06-24] MEDS ORDERED: ATOR1TAB21 PO (07:30)
[2022-06-24] MEDS ORDERED: FAMO20TA PO (07:30)
[2022-06-24] MEDS ORDERED: FLOM0.4C39 PO (07:30)
[2022-06-24] MEDS ORDERED: CLOP75TA2 PO (07:30)
[2022-06-24] MEDS ORDERED: NITR4TASL SL (07:30)
[2022-06-24] MEDS ORDERED: ALBU2.5V10 NEB (07:30)
[2022-06-24] MEDS ORDERED: PRED10TA2 PO (07:32)
[2022-06-24] MEDS ORDERED: DOXY100C3 PO (07:32)
[2022-06-24] MEDS ORDERED: CARV12.5 PO (07:37)
[2022-06-24] MEDS ORDERED: TAMSULOSIN 0.4 MG CAP PO SCH (09:00)
== END 2022-06-24 07:50 | disposition left against medical advice (07) | DRG 280 ==
LOC: M ED 07:26 → EDBD 07:26 → M ED INP 11:50 → ENRESERV 14:42 → M ICU 15:41
PROVIDERS: ADMIT General Practice; ATTEND General Practice
DX: I13.0 Hypertensive heart and chronic kidney disease with heart failure and stage 1 through stage 4 chronic kidney disease, or unspecified chronic kidney disease (principal); I21.4 Non-ST elevation (NSTEMI) myocardial infarction; I50.33 Acute on chronic diastolic (congestive) heart failure; J45.901 Unspecified asthma with (acute) exacerbation; J96.11 Chronic respiratory failure with hypoxia; E87.1 Hypo-osmolality and hyponatremia; N17.9 Acute kidney failure, unspecified; I25.10 Atherosclerotic heart disease of native coronary artery without angina pectoris; E78.5 Hyperlipidemia, unspecified; N18.30 Chronic kidney disease, stage 3 unspecified; E66.9 Obesity, unspecified; K21.9 Gastro-esophageal reflux disease without esophagitis; E11.22 Type 2 diabetes mellitus with diabetic chronic kidney disease; G47.33 Obstructive sleep apnea (adult) (pediatric); R33.9 Retention of urine, unspecified; R45.1 Restlessness and agitation; D63.1 Anemia in chronic kidney disease; G47.00 Insomnia, unspecified; N13.9 Obstructive and reflux uropathy, unspecified; Z95.2 Presence of prosthetic heart valve; Z95.1 Presence of aortocoronary bypass graft; Z98.41 Cataract extraction status, right eye; Z98.42 Cataract extraction status, left eye; Z87.891 Personal history of nicotine dependence; Z68.34 Body mass index [BMI] 34.0-34.9, adult; Z99.81 Dependence on supplemental oxygen; Z79.82 Long term (current) use of aspirin; Z79.84 Long term (current) use of oral hypoglycemic drugs; Z79.899 Other long term (current) drug therapy; Z91.19 Patient's noncompliance with other medical treatment and regimen

== ENCOUNTER → 2022-07-19 | Outpatient (CLI) | payer MEDICARE ==
[~2022-07-19] MED LIST changes: +ALBU2.5V10 NEB; +ATOR1TAB21 PO; +CLOP75TA2 PO; +DOXY100C3 PO; +FAMO20TA PO; +FLOM0.4C39 PO; +NITR4TASL SL; +PREG75CA2 PO
[2022-07-19 16:12] LABS: APPEARANCE, URINE MANUAL CLEAR (CLEAR); BILIRUBIN, URINE MANUAL NEGATIVE (NEGATIVE); COLOR, URINE MANUAL YELLOW (YELLOW); GLUCOSE, URINE (UA) MANUAL 1+(100 MG/DL) mg/dL (NEGATIVE); KETONE, URINE MANUAL NEGATIVE (NEGATIVE); NITRITE, URINE MANUAL NEGATIVE (NEGATIVE); PROTEIN, URINE MANUAL 3+ mg/dL (NEGATIVE); UROBILINOGEN, URINE MANUAL NORMAL (NORMAL)
[2022-07-19 16:13] LABS: BLOOD URINE MANUAL NEGATIVE (NEGATIVE); LEUKOCYTE ESTERASE, URINE MAN NEGATIVE (NEGATIVE)
[2022-07-19 16:46] LABS: RBC, URINE 0-1 /hpf (0-3); SQUAMOUS EPITHELIAL CELL URINE SMALL AMOUNT /hpf (SMALL AMT); TRANSITIONAL EPI CELLS, URINE SMALL AMOUNT /hpf; WBC, URINE 0-1 /hpf (0-3)
[2022-07-19 16:51] LABS: ALBUMIN 3.2 GM/DL (3.2-5.2); BLOOD UREA NITROGEN 30 MG/DL (7-18); CALCIUM LEVEL 9.3 MG/DL (8.8-10.2); CARBON DIOXIDE LEVEL 34 MEQ/L (21-32); CHLORIDE LEVEL 105 MEQ/L (98-107); COMPLEMENT C3 153 MG/DL (90-180); COMPLEMENT C4 30 MG/DL (10-40); CREATININE FOR GFR 1.65 MG/DL (0.70-1.30); GLOMERULAR FILTRATION RATE 43.2 (>42); GLUCOSE, FASTING 266 MG/DL (70-100); PHOSPHORUS LEVEL 3.4 MG/DL (2.5-4.9); POTASSIUM SERUM 4.6 MEQ/L (3.5-5.1); SODIUM LEVEL 141 MEQ/L (136-145); TOTAL PROTEIN 6.5 GM/DL (6.4-8.2)
[2022-07-19 17:25] LABS: PTH INTACT 24.3 PG/ML (18.5-88.0)
[2022-07-19 17:36] LABS: HEPATITIS B SURFACE ANTIGEN NEGATIVE (NEGATIVE)
[2022-07-19 18:04] LABS: HEPATITIS C VIRUS ABY INDEX < 0.0 INDEX (<0.8)
[2022-07-19 18:05] LABS: HIV 1&2 SCREEN CENTAUR NEGATIVE (NEGATIVE)
[2022-07-20 09:09] LABS: CREATININE,RANDOM URINE 76.8 MG/DL; TOTAL PROTEIN,RANDOM URINE 131.7 MG/DL (0.0-12.0)
== END ==
LOC: M LABDRWAD 13:17
PROVIDERS: ATTEND Student in an Organized Health Care Education/Training Program
DX: N18.4 Chronic kidney disease, stage 4 (severe) (principal)

== ENCOUNTER → 2022-08-30 | Outpatient (REF) | payer MEDICARE ==
[~2022-08-30] MED LIST changes: -DOXY-350 PO; +DOXY-444 PO
[2022-08-30 15:31] LABS: FREE T4 1.16 NG/DL (0.76-1.46); THYROID STIMULATING HORMONE 1.44 uIU/ML (0.358-3.740)
[2022-08-30 19:31] LABS: HEMOGLOBIN A1c 7.2 %
== END ==
LOC: M SFHCADAM 10:35
PROVIDERS: ATTEND Physician Assistant
DX: E11.22 Type 2 diabetes mellitus with diabetic chronic kidney disease (principal); N18.4 Chronic kidney disease, stage 4 (severe)

== ENCOUNTER 2022-09-10 19:54 | Inpatient (IN) | payer MEDICARE ==
[~2022-09-10] VITALS: Ht 170.2 cm; Wt 105.8 kg
[2022-09-10 23:25] LABS: BASO # 0.1 10^3/uL (0.0-0.2); BASO % 0.9 % (0.0-1.0); EOS # 0.8 10^3/uL (0.0-0.5); EOS % 7.5 % (0.0-3.0); HEMATOCRIT 36.1 % (42.0-52.0); HEMOGLOBIN 11.7 g/dl (13.5-17.5); LYMPH # 2.6 10^3/uL (1.5-5.0); LYMPH % 24.4 % (24.0-44.0); MEAN CORPUSCULAR HGB CONC 32.4 g/dl (32.0-36.5); MEAN CORPUSCULAR VOLUME 89.6 fl (80.0-96.0); MONO # 1.1 10^3/uL (0.0-0.8); NEUTROPHILS % 56.9 % (36.0-66.0); PLATELET COUNT, AUTOMATED 242 10^3/uL (150-450); RED BLOOD COUNT 4.03 10^6/uL (4.30-6.10); WHITE BLOOD COUNT 10.6 10^3/uL (4.0-10.0)
[2022-09-10 23:55] LABS: ALBUMIN 3.8 G/DL (3.2-5.2); BILIRUBIN,DIRECT 0.1 MG/DL (<0.4); BILIRUBIN,TOTAL 0.4 MG/DL (0.3-1.2); CALCIUM LEVEL 9.3 MG/DL (8.3-10.6); CK-MB VALUE MASS 2.4 NG/ML (<3.6); CREATININE FOR GFR 1.61 MG/DL (0.70-1.30); GLOMERULAR FILTRATION RATE 44.3 (>42); MB/CK RELATIVE INDEX 2.35 (< OR =4); POTASSIUM SERUM 3.8 MMOL/L (3.5-5.1); TOTAL PROTEIN 6.6 G/DL (5.7-8.2)
[2022-09-11] VITALS (39 sets, daily range): BP systolic 97–163; BP diastolic 48–72
[2022-09-11 03:37] LABS: VENOUS BASE EXCESS 1.3 (-2.0-2.0); VENOUS HCO3 28.8 MEQ/L (23.0-27.0); VENOUS O2 SATURATION 61.9 % (60.0-80.0); VENOUS PARTIAL PRESSURE CO2 58.8 mmHg (38.0-50.0); VENOUS PARTIAL PRESSURE O2 32.4 mmHg (30.0-50.0); VENOUS PH 7.308 UNITS (7.330-7.430); VENOUS STANDARD HCO3 24.8 MEQ/L; VENOUS TOTAL CO2 30.6 MEQ/L (24.0-28.0)
[2022-09-11] MEDS ORDERED: NOREPINEPHRINE 4MG IN D5 250ML 4 MG in IV 1 EA IV SCH ×4 (05:05→08:05)
[2022-09-11] MEDS ORDERED: PROPOFOL 1,000 MG/100 ML VIAL As Ordered ONE (05:09)
[2022-09-11] MEDS ORDERED: NS 1,000 ML IV ONE (05:10)
[2022-09-11] MEDS ORDERED: ISOVUE-370 76% 100ML VIAL As Ordered ONE (05:14)
[2022-09-11 05:37] LABS: BASO # 0.1 10^3/uL (0.0-0.2); BASO % 0.6 % (0.0-1.0); EOS % 5.3 % (0.0-3.0); HEMATOCRIT 37.8 % (42.0-52.0); HEMOGLOBIN 11.7 g/dl (13.5-17.5); LYMPH # 9.7 10^3/uL (1.5-5.0); LYMPH % 48.9 % (24.0-44.0); MEAN CORPUSCULAR HEMOGLOBIN 28.3 pg (27.0-33.0); MEAN CORPUSCULAR VOLUME 91.5 fl (80.0-96.0); MONO # 1.5 10^3/uL (0.0-0.8); MONO % 7.8 % (2.0-8.0); NEUTROPHILS # 7.2 10^3/uL (1.5-8.5); NEUTROPHILS % 36.1 % (36.0-66.0); PLATELET COUNT, AUTOMATED 325 10^3/uL (150-450); RED BLOOD COUNT 4.13 10^6/uL (4.30-6.10); WHITE BLOOD COUNT 19.8 10^3/uL (4.0-10.0)
[2022-09-11 06:00] LABS: CALCIUM LEVEL 8.6 MG/DL (8.3-10.6); CK-MB VALUE MASS 2.6 NG/ML (<3.6); CREATININE FOR GFR 1.64 MG/DL (0.70-1.30); GLOMERULAR FILTRATION RATE 43.4 (>42); MB/CK RELATIVE INDEX 2.24 (< OR =4); POTASSIUM SERUM 3.5 MMOL/L (3.5-5.1)
[2022-09-11] MEDS ORDERED: methylPREDNISolone 125MG 2ML VIAL IV ONE (06:00)
[2022-09-11] MEDS: propofoL 1,000 MG in IV 1 EA IV SCH ×4 (06:38→12:15)
[2022-09-11] MEDS ORDERED: PIPERACILLIN/TAZOBACTAM SOD 4.5 GM in D5W MINI-BAG PLUS 50 ML IV ONE (07:00)
[2022-09-11 07:05] LABS: INR 1.06; PROTHROMBIN TIME 14.1 SECONDS (12.5-14.5)
[2022-09-11 07:06] LABS: PARTIAL THROMBOPLASTIN TIME 31.8 SECONDS (24.8-34.2)
[2022-09-11] MEDS ORDERED: SODIUM BICARBONATE 8.4% INJ 50ML SYRINGE IV STA (07:33)
[2022-09-11] MEDS ORDERED: EPINEPHrine 1MG/10ML SYRINGE 1.5IN IV STA (07:33)
[2022-09-11] MEDS ORDERED: ROCURONIUM BROMIDE 50 MG/5 ML VIAL IV ONE (07:35)
[2022-09-11] MEDS ORDERED: propofoL 200 MG/20 ML VIAL IV ONE (07:35)
[2022-09-11] MEDS ORDERED: GLUCAGON INJ 1MG VIAL SC PRN (09:10)
[2022-09-11] MEDS ORDERED: DEXTROSE 50% 50 ML SYRINGE IV PRN (09:10)
[2022-09-11] MEDS ORDERED: GLUCOSE 4GM CHEW TABLET PO PRN (09:10)
[2022-09-11] MEDS: AZITHROMYCIN INJ 500 MG, VIAL MATE ADAPTER 1 EACH in NS 250 ML IV SCH (10:25)
[2022-09-11] MEDS: PANTOPRAZOLE 40MG VIAL IV SCH (10:25)
[2022-09-11] MEDS: CHLORHEXIDINE GLUCONATE 0.12 % 15ML UDC (PERIDEX ORAL RINSE) MT SCH ×2 (10:26→20:19)
[2022-09-11] MEDS ORDERED: propofoL 200 MG/20 ML VIAL ONE (11:20)
[2022-09-11] MEDS ORDERED: EPINEPHrine 1MG/10ML SYRINGE 1.5IN ONE (11:20)
[2022-09-11] MEDS ORDERED: SODIUM BICARBONATE 8.4% INJ 50ML SYRINGE ONE (11:20)
[2022-09-11] MEDS ORDERED: ROCURONIUM BROMIDE 50 MG/5 ML VIAL ONE (11:20)
[2022-09-11] MEDS: IPRATROPIUM 0.5MG/ALBUTEROL 2.5MG INH SOL UD 3ML (DUONEB) NEB SCH ×3 (11:35→19:05)
[2022-09-11] MEDS ORDERED: KCL 10MEQ/100ML SWI (KRUN) 10 MEQ in IV 1 EA IV ONE (12:00)
[2022-09-11] MEDS: methylPREDNISolone 125MG 2ML VIAL IV SCH ×2 (12:15→18:05)
[2022-09-11] MEDS: INSULIN LISPRO (NovoLOG) PER UNIT SC SCH ×2 (12:15→18:05)
[2022-09-11] MEDS: PIPERACILLIN/TAZOBACTAM SOD 3.375 GM in D5W MINI-BAG PLUS 50 ML IV SCH ×2 (12:16→18:06)
[2022-09-11 14:12] LABS: HEMATOCRIT 35.7 % (42.0-52.0); HEMOGLOBIN 11.4 g/dl (13.5-17.5)
[2022-09-11 14:53] LABS: ABG BASE EXCESS 0.1 (-2.0-2.0); ABG HCO3 25.5 MEQ/L (22.0-26.0); ABG O2 SATURATION 96.4 % (95.0-99.0); ABG PARTIAL PRESSURE CO2 44.9 mmHg (35.0-45.0); ABG PARTIAL PRESSURE O2 85.3 mmHg (75.0-100.0); ABG STANDARD HCO3 24.5 MEQ/L (22.0-26.0); ABG TOTAL CO2 26.9 MEQ/L (23.0-31.0); ABG pH (ARTERIAL) 7.373 UNITS (7.350-7.450)
[2022-09-11] MEDS: MIDAZOLAM 100MG/100ML-0.9%NACL 100 MG in IV 1 EA IV SCH (15:05)
[2022-09-11] MEDS: MIDAZOLAM INJ 2MG/2ML VIAL (J2250 PER 1MG) IV PRN (15:36)
[2022-09-12] VITALS (24 sets, daily range): BP systolic 101–130; BP diastolic 50–79
[2022-09-12] MEDS: PIPERACILLIN/TAZOBACTAM SOD 3.375 GM in D5W MINI-BAG PLUS 50 ML IV SCH ×4 (00:27→18:30)
[2022-09-12] MEDS: methylPREDNISolone 125MG 2ML VIAL IV SCH ×4 (00:27→22:05)
[2022-09-12] MEDS: INSULIN LISPRO (NovoLOG) PER UNIT SC SCH ×4 (00:28→18:30)
[2022-09-12] MEDS: MIDAZOLAM INJ 2MG/2ML VIAL (J2250 PER 1MG) IV PRN ×3 (02:28→06:32)
[2022-09-12] MEDS: MIDAZOLAM 100MG/100ML-0.9%NACL 100 MG in IV 1 EA IV SCH (05:01)
[2022-09-12 05:09] LABS: HEMATOCRIT 31.9 % (42.0-52.0); HEMOGLOBIN 10.5 g/dl (13.5-17.5); MEAN CORPUSCULAR HEMOGLOBIN 28.6 pg (27.0-33.0); MEAN CORPUSCULAR HGB CONC 32.9 g/dl (32.0-36.5); MEAN CORPUSCULAR VOLUME 86.9 fl (80.0-96.0); PLATELET COUNT, AUTOMATED 227 10^3/uL (150-450); RED BLOOD COUNT 3.67 10^6/uL (4.30-6.10); WHITE BLOOD COUNT 9.7 10^3/uL (4.0-10.0)
[2022-09-12 05:50] LABS: ABG BASE EXCESS -1.1 (-2.0-2.0); ABG HCO3 23.1 MEQ/L (22.0-26.0); ABG O2 SATURATION 95.2 % (95.0-99.0); ABG PARTIAL PRESSURE CO2 37.1 mmHg (35.0-45.0); ABG STANDARD HCO3 23.5 MEQ/L (22.0-26.0); ABG TOTAL CO2 24.3 MEQ/L (23.0-31.0); ABG pH (ARTERIAL) 7.413 UNITS (7.350-7.450)
[2022-09-12 05:58] LABS: BILIRUBIN,TOTAL 0.4 MG/DL (0.3-1.2); CALCIUM LEVEL 8.3 MG/DL (8.3-10.6); CREATININE FOR GFR 2.01 MG/DL (0.70-1.30); GLOMERULAR FILTRATION RATE 34.3 (>42); MAGNESIUM LEVEL 1.8 MG/DL (1.8-2.4); POTASSIUM SERUM 3.6 MMOL/L (3.5-5.1); TOTAL PROTEIN 5.6 G/DL (5.7-8.2)
[2022-09-12] MEDS: IPRATROPIUM 0.5MG/ALBUTEROL 2.5MG INH SOL UD 3ML (DUONEB) NEB SCH ×4 (07:45→19:08)
[2022-09-12] MEDS ORDERED: FUROSEMIDE 40MG/4ML VIAL (J1940) IV ONE (09:10)
[2022-09-12] MEDS: CARVedilol 12.5 MG TAB NG SCH ×2 (10:30→20:11)
[2022-09-12] MEDS: ATORVASTATIN 20 MG TAB NG SCH (10:31)
[2022-09-12] MEDS: CHLORHEXIDINE GLUCONATE 0.12 % 15ML UDC (PERIDEX ORAL RINSE) MT SCH (10:31)
[2022-09-12] MEDS: AZITHROMYCIN INJ 500 MG, VIAL MATE ADAPTER 1 EACH in NS 250 ML IV SCH (10:32)
[2022-09-12] MEDS: PANTOPRAZOLE 40MG VIAL IV SCH (10:32)
[2022-09-12] MEDS: KCL 20MEQ IN 0.45NS 1000ML 1,000 ML IV SCH ×2 (10:33→18:30)
[2022-09-12 11:44] LABS: ABG BASE EXCESS -0.2 (-2.0-2.0); ABG HCO3 24.2 MEQ/L (22.0-26.0); ABG O2 SATURATION 95.3 % (95.0-99.0); ABG PARTIAL PRESSURE CO2 38.5 mmHg (35.0-45.0); ABG PARTIAL PRESSURE O2 76.2 mmHg (75.0-100.0); ABG STANDARD HCO3 24.3 MEQ/L (22.0-26.0); ABG TOTAL CO2 25.4 MEQ/L (23.0-31.0); ABG pH (ARTERIAL) 7.416 UNITS (7.350-7.450)
[2022-09-12 11:55] LABS: CK-MB VALUE MASS 1.3 NG/ML (<3.6); MB/CK RELATIVE INDEX 2.13 (< OR =4)
[2022-09-12 14:08] LABS: APPEARANCE, URINE MANUAL CLOUDY (CLEAR); COLOR, URINE MANUAL BROWN (YELLOW)
[2022-09-12 14:10] LABS: BILIRUBIN, URINE MANUAL NEGATIVE (NEGATIVE); BLOOD URINE MANUAL POSITIVE (NEGATIVE); GLUCOSE, URINE (UA) MANUAL NEGATIVE (NEGATIVE); KETONE, URINE MANUAL NEGATIVE (NEGATIVE); LEUKOCYTE ESTERASE, URINE MAN POSITIVE (NEGATIVE); NITRITE, URINE MANUAL NEGATIVE (NEGATIVE); PROTEIN, URINE MANUAL 1+ mg/dL (NEGATIVE); UROBILINOGEN, URINE MANUAL NORMAL (NORMAL)
[2022-09-12 14:21] LABS: BACTERIA, URINE NONE SEEN; HYALINE CAST, URINE NONE SEEN /lpf (0-1); RBC, URINE TNTC /hpf (0-3); SQUAMOUS EPITHELIAL CELL URINE NONE SEEN /hpf (SMALL AMT); URIC ACID CRYSTALS, URINE LARGE AMOUNT /hpf
[2022-09-12] MEDS ORDERED: GLIP10TA18 PO (19:32)
[2022-09-12] MEDS ORDERED: LISI5TAB11 PO (19:32)
[2022-09-12] MEDS ORDERED: FURO40TA2 PO (19:32)
[2022-09-12] MEDS ORDERED: SIMV40TA20 PO (19:32)
[2022-09-12] MEDS ORDERED: NITR4TASL SL (19:32)
[2022-09-12] MEDS ORDERED: HOME MED LIST COMPLETE! XX SCH (19:35)
[2022-09-13] VITALS (11 sets, daily range): BP systolic 83–177; BP diastolic 36–77
[2022-09-13] MEDS: PIPERACILLIN/TAZOBACTAM SOD 3.375 GM in D5W MINI-BAG PLUS 50 ML IV SCH ×2 (00:16→06:02)
[2022-09-13] MEDS: INSULIN LISPRO (NovoLOG) PER UNIT SC SCH ×4 (00:16→17:39)
[2022-09-13] MEDS: BUDESONIDE 0.5 MG/2 ML INHALATION SUSPENSION INH SCH ×3 (01:24→21:10)
[2022-09-13 01:44] LABS: CALCIUM LEVEL 7.7 MG/DL (8.3-10.6); CREATININE FOR GFR 2.32 MG/DL (0.70-1.30); GLOMERULAR FILTRATION RATE 29.1 (>42); POTASSIUM SERUM 3.6 MMOL/L (3.5-5.1)
[2022-09-13] MEDS: KCL 20MEQ IN 0.45NS 1000ML 1,000 ML IV SCH (04:42)
[2022-09-13] MEDS: ALBUTEROL SULFATE 2.5 MG/0.5 ML INH NEB SOLN NEB PRN ×2 (04:43)
[2022-09-13] MEDS: methylPREDNISolone 125MG 2ML VIAL IV SCH ×3 (06:02→22:23)
[2022-09-13] MEDS: IPRATROPIUM 0.5MG/ALBUTEROL 2.5MG INH SOL UD 3ML (DUONEB) NEB SCH ×4 (07:39→21:10)
[2022-09-13 08:27] LABS: INR 1.12; PROTHROMBIN TIME 14.6 SECONDS (12.5-14.5)
[2022-09-13 09:01] LABS: HEMATOCRIT 32.1 % (42.0-52.0); HEMOGLOBIN 10.3 g/dl (13.5-17.5); MEAN CORPUSCULAR HEMOGLOBIN 28.4 pg (27.0-33.0); MEAN CORPUSCULAR HGB CONC 32.1 g/dl (32.0-36.5); MEAN CORPUSCULAR VOLUME 88.4 fl (80.0-96.0); PLATELET COUNT, AUTOMATED 229 10^3/uL (150-450); RED BLOOD COUNT 3.63 10^6/uL (4.30-6.10); WHITE BLOOD COUNT 9.8 10^3/uL (4.0-10.0)
[2022-09-13] MEDS: ATORVASTATIN 20 MG TAB NG SCH (10:10)
[2022-09-13] MEDS: PANTOPRAZOLE 40MG VIAL IV SCH (10:10)
[2022-09-13] MEDS: CARVedilol 12.5 MG TAB NG SCH (10:11)
[2022-09-13] MEDS: AZITHROMYCIN INJ 500 MG, VIAL MATE ADAPTER 1 EACH in NS 250 ML IV SCH (10:12)
[2022-09-13] MEDS: OCUVITE 1 TAB PO SCH (20:14)
[2022-09-13] MEDS: CARVedilol 12.5 MG TAB PO SCH (20:14)
[2022-09-13] MEDS ORDERED: MONTELUKAST 10 MG TAB PO SCH (21:00)
[2022-09-13] MEDS: ADVAIR HFA 230/21MCG INHALER INH SCH (21:10)
[2022-09-14] VITALS: BP 161/72
[2022-09-14] MEDS: ALBUTEROL SULFATE 2.5 MG/0.5 ML INH NEB SOLN NEB PRN ×3 (00:11→13:54)
[2022-09-14] MEDS: INSULIN LISPRO (NovoLOG) PER UNIT SC SCH ×2 (00:13→06:11)
[2022-09-14 04:00] VITALS: BP 136/60
[2022-09-14] MEDS: methylPREDNISolone 125MG 2ML VIAL IV SCH (06:11)
[2022-09-14] MEDS: BUDESONIDE 0.5 MG/2 ML INHALATION SUSPENSION INH SCH (07:23)
[2022-09-14] MEDS: ADVAIR HFA 230/21MCG INHALER INH SCH (07:23)
[2022-09-14] MEDS: IPRATROPIUM 0.5MG/ALBUTEROL 2.5MG INH SOL UD 3ML (DUONEB) NEB SCH ×2 (07:24→11:32)
[2022-09-14 07:42] VITALS: BP 176/77
[2022-09-14] MEDS: OCUVITE 1 TAB PO SCH (07:45)
[2022-09-14 07:46] VITALS: BP 176/77
[2022-09-14] MEDS: CARVedilol 12.5 MG TAB PO SCH (07:46)
[2022-09-14] MEDS ORDERED: TIOTROPIUM INHALER/CAPSULE (SPIRIVA) INH SCH (08:00)
[2022-09-14 08:48] LABS: HEMOGLOBIN 11.2 g/dl (13.5-17.5); MEAN CORPUSCULAR HEMOGLOBIN 28.6 pg (27.0-33.0); MEAN CORPUSCULAR HGB CONC 32.9 g/dl (32.0-36.5); MEAN CORPUSCULAR VOLUME 86.7 fl (80.0-96.0); PLATELET COUNT, AUTOMATED 243 10^3/uL (150-450); RED BLOOD COUNT 3.92 10^6/uL (4.30-6.10); WHITE BLOOD COUNT 7.1 10^3/uL (4.0-10.0)
[2022-09-14] MEDS ORDERED: AZITHROMYCIN 250MG TABLET PO SCH (09:00)
[2022-09-14] MEDS ORDERED: FENOFIBRATE 145MG TABLET (TRICOR) PO SCH (09:00)
[2022-09-14] MEDS ORDERED: ATORVASTATIN 20 MG TAB PO SCH (09:00)
[2022-09-14] MEDS ORDERED: OMEPRAZOLE 20MG CAP PO SCH (09:00)
[2022-09-14] MEDS ORDERED: PANTOPRAZOLE 40MG TAB (PROTONIX) PO SCH (09:00)
[2022-09-14 09:55] LABS: CALCIUM LEVEL 8.3 MG/DL (8.3-10.6); CREATININE FOR GFR 2.07 MG/DL (0.70-1.30); GLOMERULAR FILTRATION RATE 33.1 (>42); MAGNESIUM LEVEL 2.1 MG/DL (1.8-2.4); POTASSIUM SERUM 3.8 MMOL/L (3.5-5.1)
[2022-09-14 12:00] VITALS: BP 160/70
[2022-09-14] MEDS ORDERED: INSULIN LISPRO (NovoLOG) PER UNIT SC SCH ×2 (12:00→21:00)
[2022-09-14] MEDS ORDERED: AZIT-12 PO (12:53)
[2022-09-14] MEDS ORDERED: PRED20TA PO ×2 (12:53→14:36)
[2022-09-14] MEDS ORDERED: ALBU8.5H INH (14:36)
[2022-09-14] MEDS ORDERED: AMOX875T2 PO (14:36)
[2022-09-14] MEDS ORDERED: methylPREDNISolone 125MG 2ML VIAL IV SCH (18:00)
== END 2022-09-14 15:19 | disposition home health service (06) | DRG 208 ==
LOC: M ED 19:54 → M ED INP 09-11 08:04 → M ICU 09-11 09:01 → M PCU 09-13 21:24
PROVIDERS: ADMIT Internal Medicine; ATTEND Student in an Organized Health Care Education/Training Program
PROC: 5A1945Z Respiratory Ventilation, 24-96 Consecutive Hours (ICD-10-PCS; principal; 2022-09-11)
PROC: 0BH17EZ Insertion of Endotracheal Airway into Trachea, Via Natural or Artificial Opening (ICD-10-PCS; 2022-09-11)
DX: J96.21 Acute and chronic respiratory failure with hypoxia (principal); I46.8 Cardiac arrest due to other underlying condition; I21.A1 Myocardial infarction type 2; R57.0 Cardiogenic shock; I13.0 Hypertensive heart and chronic kidney disease with heart failure and stage 1 through stage 4 chronic kidney disease, or unspecified chronic kidney disease; I50.42 Chronic combined systolic (congestive) and diastolic (congestive) heart failure; N17.9 Acute kidney failure, unspecified; J44.1 Chronic obstructive pulmonary disease with (acute) exacerbation; K86.2 Cyst of pancreas; J96.22 Acute and chronic respiratory failure with hypercapnia; I25.10 Atherosclerotic heart disease of native coronary artery without angina pectoris; E11.22 Type 2 diabetes mellitus with diabetic chronic kidney disease; E78.5 Hyperlipidemia, unspecified; N18.30 Chronic kidney disease, stage 3 unspecified; E66.9 Obesity, unspecified; J45.909 Unspecified asthma, uncomplicated; K21.9 Gastro-esophageal reflux disease without esophagitis; I95.9 Hypotension, unspecified; E86.0 Dehydration; D64.9 Anemia, unspecified; N28.1 Cyst of kidney, acquired; F03.90 Unspecified dementia, unspecified severity, without behavioral disturbance, psychotic disturbance, mood disturbance, and anxiety; Z95.2 Presence of prosthetic heart valve; Z95.1 Presence of aortocoronary bypass graft; Z98.41 Cataract extraction status, right eye; Z98.42 Cataract extraction status, left eye; Z87.891 Personal history of nicotine dependence; Z99.81 Dependence on supplemental oxygen; Z68.36 Body mass index [BMI] 36.0-36.9, adult

== ENCOUNTER → 2022-09-27 | Outpatient (REF) | payer MEDICARE ==
[~2022-09-27] MED LIST changes: +ALBU8.5H INH; +AMOX875T2 PO; +AZIT-12 PO
[2022-09-27 11:42] LABS: APPEARANCE, URINE MANUAL CLEAR (CLEAR); COLOR, URINE MANUAL YELLOW (YELLOW)
[2022-09-27 11:44] LABS: GLUCOSE, URINE (UA) MANUAL TRACE(50 MG/DL) mg/dL (NEGATIVE); KETONE, URINE MANUAL NEGATIVE (NEGATIVE); PROTEIN, URINE MANUAL 1+ mg/dL (NEGATIVE); SPECIFIC GRAVITY,URINE MANUAL 1.015 (1.002-1.035)
[2022-09-27 11:45] LABS: BILIRUBIN, URINE MANUAL NEGATIVE (NEGATIVE); BLOOD URINE MANUAL NEGATIVE (NEGATIVE); LEUKOCYTE ESTERASE, URINE MAN POSITIVE (NEGATIVE); NITRITE, URINE MANUAL NEGATIVE (NEGATIVE); UROBILINOGEN, URINE MANUAL NORMAL (NORMAL)
[2022-09-27 12:49] LABS: RBC, URINE 0-1 /hpf (0-3); SQUAMOUS EPITHELIAL CELL URINE SMALL AMOUNT /hpf (SMALL AMT)
[2022-09-27 12:50] LABS: BACTERIA, URINE SMALL AMOUNT; HYALINE CAST, URINE NONE SEEN /lpf (0-1); MUCUS, URINE SMALL AMOUNT (NEGATIVE)
== END ==
LOC: M SMT 10:12
PROVIDERS: ATTEND Urology
DX: R31.29 Other microscopic hematuria (principal)

== ENCOUNTER 2022-12-17 14:10 | Inpatient (IN) | payer MEDICARE ==
[2022-12-17 15:11] LABS: BASO % 0.2 % (0.0-1.0); EOS # 0.2 10^3/uL (0.0-0.5); EOS % 1.9 % (0.0-3.0); HEMATOCRIT 30.7 % (42.0-52.0); LYMPH # 2.7 10^3/uL (1.5-5.0); LYMPH % 21.5 % (24.0-44.0); MEAN CORPUSCULAR HEMOGLOBIN 29.6 pg (27.0-33.0); MEAN CORPUSCULAR HGB CONC 32.6 g/dl (32.0-36.5); MEAN CORPUSCULAR VOLUME 90.8 fl (80.0-96.0); MONO # 1.1 10^3/uL (0.0-0.8); MONO % 8.6 % (2.0-8.0); NEUTROPHILS # 8.3 10^3/uL (1.5-8.5); NEUTROPHILS % 67.2 % (36.0-66.0); PLATELET COUNT, AUTOMATED 269 10^3/uL (150-450); RED BLOOD COUNT 3.38 10^6/uL (4.30-6.10); WHITE BLOOD COUNT 12.4 10^3/uL (4.0-10.0)
[2022-12-17] MEDS ORDERED: NS 500 ML IV ONE (15:25)
[2022-12-17 15:30] LABS: INR 1.02; PROTHROMBIN TIME 13.6 SECONDS (12.5-14.5)
[2022-12-17 15:31] LABS: PARTIAL THROMBOPLASTIN TIME 28.6 SECONDS (24.8-34.2)
[2022-12-17 15:38] LABS: ALBUMIN 3.3 G/DL (3.2-5.2); BILIRUBIN,DIRECT 0.2 MG/DL (<0.4); BILIRUBIN,TOTAL 0.6 MG/DL (0.3-1.2); CALCIUM LEVEL 9.1 MG/DL (8.3-10.6); CK-MB VALUE MASS 1.7 NG/ML (<3.6); CREATININE FOR GFR 2.74 MG/DL (0.70-1.30); MB/CK RELATIVE INDEX 5.15 (< OR =4); POTASSIUM SERUM 3.8 MMOL/L (3.5-5.1); TOTAL PROTEIN 6.3 G/DL (5.7-8.2)
[2022-12-17] MEDS ORDERED: NS 1,000 ML IV SCH (16:50)
[2022-12-17 16:51] LABS: CK-MB VALUE MASS 1.8 NG/ML (<3.6)
[2022-12-17 16:52] LABS: MB/CK RELATIVE INDEX 5.29 (< OR =4)
[2022-12-17] MEDS ORDERED: ONDANSETRON 4MG 2ML VIAL IV PRN (17:15)
[2022-12-17 17:54] LABS: RSV AMPLIFICATION NEGATIVE (NEGATIVE)
[2022-12-17 17:58] LABS: MAGNESIUM LEVEL 2.2 MG/DL (1.8-2.4)
[2022-12-17] MEDS ORDERED: PANTOPRAZOLE 40MG VIAL IV SCH (18:00)
[2022-12-17] MEDS ORDERED: AMIODARONE 200 MG TAB (PACERONE) PO ONE (18:45)
[2022-12-17] MEDS ORDERED: ICAPCAP2 PO (18:56)
[2022-12-17] MEDS ORDERED: COMBAER6 INH (18:56)
[2022-12-17] MEDS ORDERED: ALLO100T PO (18:57)
[2022-12-17] MEDS ORDERED: HOME MED LIST COMPLETE! XX SCH (19:00)
[2022-12-17] MEDS: ADVAIR HFA 230/21MCG INHALER INH SCH (20:00)
[2022-12-17] MEDS ORDERED: GLUCOSE 4GM CHEW TABLET PO PRN (20:05)
[2022-12-17] MEDS ORDERED: DEXTROSE 50% 50ML SYRINGE IV PRN (20:05)
[2022-12-17] MEDS ORDERED: GLUCAGON INJ 1MG VIAL SC PRN (20:05)
[2022-12-17] MEDS: INSULIN LISPRO (NovoLOG) PER UNIT SC SCH (21:00)
[2022-12-17] MEDS ORDERED: ADVAIR HFA 230/21MCG INHALER INH SCH (21:00)
[2022-12-17] MEDS: CARVedilol 12.5 MG TAB PO SCH (21:00)
[2022-12-17 21:22] LABS: CK-MB VALUE MASS 1.2 NG/ML (<3.6)
[2022-12-17 21:23] LABS: MB/CK RELATIVE INDEX 3.15 (< OR =4)
[2022-12-17 21:42] VITALS: BP 143/64
[2022-12-17 22:00] VITALS: BP 109/54
[2022-12-17] MEDS: HEPARIN SOD (PORCINE) 5000UNITS/ML 1ML VIAL/SYRINGE SC SCH (22:17)
[2022-12-17] MEDS: ASPIRIN 81MG ENTERIC TABLET PO SCH (22:17)
[2022-12-17] MEDS: ATORVASTATIN 20 MG TAB PO SCH (22:18)
[2022-12-17] MEDS: MONTELUKAST 10 MG TAB PO SCH (22:18)
[2022-12-17 22:29] LABS: MAGNESIUM LEVEL 2.1 MG/DL (1.8-2.4); POTASSIUM SERUM 3.7 MMOL/L (3.5-5.1)
[2022-12-17 23:00] VITALS: BP 109/55
[2022-12-18] VITALS (17 sets, daily range): BP systolic 98–141; BP diastolic 50–88; O2SAT 98
[2022-12-18] MEDS: IPRATROPIUM 0.5MG/ALBUTEROL 2.5MG INH SOL UD 3ML (DUONEB) NEB PRN ×2 (00:03→20:17)
[2022-12-18 06:28] LABS: BASO # 0.1 10^3/uL (0.0-0.2); BASO % 0.5 % (0.0-1.0); EOS # 0.4 10^3/uL (0.0-0.5); EOS % 3.9 % (0.0-3.0); HEMATOCRIT 29.5 % (42.0-52.0); HEMOGLOBIN 9.6 g/dl (13.5-17.5); LYMPH # 3.4 10^3/uL (1.5-5.0); LYMPH % 32.4 % (24.0-44.0); MEAN CORPUSCULAR HEMOGLOBIN 29.7 pg (27.0-33.0); MEAN CORPUSCULAR HGB CONC 32.5 g/dl (32.0-36.5); MEAN CORPUSCULAR VOLUME 91.3 fl (80.0-96.0); MONO # 1.1 10^3/uL (0.0-0.8); NEUTROPHILS # 5.5 10^3/uL (1.5-8.5); NEUTROPHILS % 52.7 % (36.0-66.0); PLATELET COUNT, AUTOMATED 236 10^3/uL (150-450); RED BLOOD COUNT 3.23 10^6/uL (4.30-6.10); WHITE BLOOD COUNT 10.5 10^3/uL (4.0-10.0)
[2022-12-18 06:52] LABS: CALCIUM LEVEL 8.6 MG/DL (8.3-10.6); CREATININE FOR GFR 2.58 MG/DL (0.70-1.30); GLOMERULAR FILTRATION RATE 25.7 (>42); POTASSIUM SERUM 3.5 MMOL/L (3.5-5.1)
[2022-12-18] MEDS: INSULIN LISPRO (NovoLOG) PER UNIT SC SCH ×4 (07:30→20:39)
[2022-12-18] MEDS: ADVAIR HFA 230/21MCG INHALER INH SCH ×2 (08:12→20:15)
[2022-12-18] MEDS: CARVedilol 12.5 MG TAB PO SCH ×3 (09:00→20:57)
[2022-12-18] MEDS: HEPARIN SOD (PORCINE) 5000UNITS/ML 1ML VIAL/SYRINGE SC SCH ×2 (10:42→20:57)
[2022-12-18] MEDS: allopurinoL 100 MG TAB PO SCH (10:43)
[2022-12-18] MEDS: ASPIRIN 81MG ENTERIC TABLET PO SCH ×2 (10:43→20:58)
[2022-12-18] MEDS: OMEPRAZOLE 20MG CAP PO SCH (10:43)
[2022-12-18] MEDS: AMIODARONE 200 MG TAB (PACERONE) PO SCH ×3 (10:43→20:58)
[2022-12-18] MEDS: FENOFIBRATE 145MG TABLET (TRICOR) PO SCH (10:48)
[2022-12-18] MEDS ORDERED: POTASSIUM CHLORIDE 10MEQ SR TABLET PO ONE (14:15)
[2022-12-18] MEDS: ATORVASTATIN 20 MG TAB PO SCH (20:57)
[2022-12-18] MEDS: MONTELUKAST 10 MG TAB PO SCH (20:58)
[2022-12-19] VITALS (19 sets, daily range): BP systolic 127–146; BP diastolic 59–68; O2SAT 97–100
[2022-12-19 06:50] LABS: BASO % 0.5 % (0.0-1.0); EOS # 0.3 10^3/uL (0.0-0.5); EOS % 4.2 % (0.0-3.0); HEMOGLOBIN 9.5 g/dl (13.5-17.5); LYMPH # 2.5 10^3/uL (1.5-5.0); LYMPH % 31.3 % (24.0-44.0); MEAN CORPUSCULAR HEMOGLOBIN 30.2 pg (27.0-33.0); MEAN CORPUSCULAR HGB CONC 32.8 g/dl (32.0-36.5); MEAN CORPUSCULAR VOLUME 92.1 fl (80.0-96.0); MONO # 0.8 10^3/uL (0.0-0.8); NEUTROPHILS # 4.3 10^3/uL (1.5-8.5); NEUTROPHILS % 53.5 % (36.0-66.0); PLATELET COUNT, AUTOMATED 247 10^3/uL (150-450); RED BLOOD COUNT 3.15 10^6/uL (4.30-6.10); WHITE BLOOD COUNT 7.9 10^3/uL (4.0-10.0)
[2022-12-19 07:25] LABS: CALCIUM LEVEL 8.5 MG/DL (8.3-10.6); CREATININE FOR GFR 2.76 MG/DL (0.70-1.30); GLOMERULAR FILTRATION RATE 23.8 (>42); POTASSIUM SERUM 4.3 MMOL/L (3.5-5.1)
[2022-12-19] MEDS: INSULIN LISPRO (NovoLOG) PER UNIT SC SCH ×4 (08:07→20:38)
[2022-12-19] MEDS: CARVedilol 12.5 MG TAB PO SCH ×2 (08:08→20:15)
[2022-12-19] MEDS: HEPARIN SOD (PORCINE) 5000UNITS/ML 1ML VIAL/SYRINGE SC SCH ×2 (08:08→20:38)
[2022-12-19] MEDS: OMEPRAZOLE 20MG CAP PO SCH (08:08)
[2022-12-19] MEDS: FENOFIBRATE 145MG TABLET (TRICOR) PO SCH (08:08)
[2022-12-19] MEDS: ASPIRIN 81MG ENTERIC TABLET PO SCH ×2 (08:08→20:37)
[2022-12-19] MEDS: AMIODARONE 200 MG TAB (PACERONE) PO SCH ×3 (08:08→20:37)
[2022-12-19] MEDS: allopurinoL 100 MG TAB PO SCH (08:08)
[2022-12-19] MEDS: IPRATROPIUM 0.5MG/ALBUTEROL 2.5MG INH SOL UD 3ML (DUONEB) NEB PRN ×2 (08:10→19:45)
[2022-12-19] MEDS: ADVAIR HFA 230/21MCG INHALER INH SCH ×2 (08:10→19:41)
[2022-12-19] MEDS: MONTELUKAST 10 MG TAB PO SCH (20:37)
[2022-12-19] MEDS: ATORVASTATIN 20 MG TAB PO SCH (20:37)
[2022-12-20] VITALS (8 sets, daily range): BP systolic 140–162; BP diastolic 64–72; O2SAT 97–99
[2022-12-20 06:41] LABS: BASO % 0.4 % (0.0-1.0); EOS # 0.3 10^3/uL (0.0-0.5); EOS % 3.9 % (0.0-3.0); HEMATOCRIT 27.3 % (42.0-52.0); LYMPH # 2.4 10^3/uL (1.5-5.0); MONO # 0.9 10^3/uL (0.0-0.8); MONO % 10.5 % (2.0-8.0); NEUTROPHILS # 4.4 10^3/uL (1.5-8.5); NEUTROPHILS % 54.5 % (36.0-66.0); PLATELET COUNT, AUTOMATED 263 10^3/uL (150-450); WHITE BLOOD COUNT 8.1 10^3/uL (4.0-10.0)
[2022-12-20 07:06] LABS: CALCIUM LEVEL 8.3 MG/DL (8.3-10.6); CREATININE FOR GFR 2.64 MG/DL (0.70-1.30); POTASSIUM SERUM 4.1 MMOL/L (3.5-5.1)
[2022-12-20] MEDS: INSULIN LISPRO (NovoLOG) PER UNIT SC SCH (07:25)
[2022-12-20] MEDS: ADVAIR HFA 230/21MCG INHALER INH SCH (07:30)
[2022-12-20] MEDS: IPRATROPIUM 0.5MG/ALBUTEROL 2.5MG INH SOL UD 3ML (DUONEB) NEB PRN (07:30)
[2022-12-20] MEDS ORDERED: NS 500 ML IV SCH (08:20)
[2022-12-20] MEDS ORDERED: SODI0.9S IV (09:03)
[2022-12-20] MEDS ORDERED: AMIO200T49 PO (09:03)
[2022-12-20] MEDS: ASPIRIN 81MG ENTERIC TABLET PO SCH (09:16)
[2022-12-20] MEDS: OMEPRAZOLE 20MG CAP PO SCH (09:16)
[2022-12-20] MEDS: CARVedilol 12.5 MG TAB PO SCH (09:16)
[2022-12-20] MEDS: FENOFIBRATE 145MG TABLET (TRICOR) PO SCH (09:16)
[2022-12-20] MEDS: HEPARIN SOD (PORCINE) 5000UNITS/ML 1ML VIAL/SYRINGE SC SCH (09:17)
[2022-12-20] MEDS: AMIODARONE 200 MG TAB (PACERONE) PO SCH (09:17)
[2022-12-20] MEDS: allopurinoL 100 MG TAB PO SCH (09:23)
== END 2022-12-20 11:13 | disposition short-term general hospital (02) | DRG 309 ==
LOC: M ED 14:10 → M ED INP 17:11 → ENRESERVDT 21:09 → ENRESERVTM 21:09 → M ICU 21:45 → M PCU 12-18 21:05
PROVIDERS: ADMIT Internal Medicine Nephrology; ATTEND General Practice
PROC: B246ZZZ Ultrasonography of Right and Left Heart (ICD-10-PCS; principal; 2022-12-19)
DX: I47.20 Ventricular tachycardia, unspecified (principal); J96.11 Chronic respiratory failure with hypoxia; I50.42 Chronic combined systolic (congestive) and diastolic (congestive) heart failure; N18.4 Chronic kidney disease, stage 4 (severe); I13.0 Hypertensive heart and chronic kidney disease with heart failure and stage 1 through stage 4 chronic kidney disease, or unspecified chronic kidney disease; N17.9 Acute kidney failure, unspecified; I25.10 Atherosclerotic heart disease of native coronary artery without angina pectoris; J44.9 Chronic obstructive pulmonary disease, unspecified; E66.01 Morbid (severe) obesity due to excess calories; E11.22 Type 2 diabetes mellitus with diabetic chronic kidney disease; E78.5 Hyperlipidemia, unspecified; N28.1 Cyst of kidney, acquired; I27.20 Pulmonary hypertension, unspecified; D64.9 Anemia, unspecified; Z66 Do not resuscitate; G47.00 Insomnia, unspecified; E55.9 Vitamin D deficiency, unspecified; K57.90 Diverticulosis of intestine, part unspecified, without perforation or abscess without bleeding; E53.8 Deficiency of other specified B group vitamins; F03.90 Unspecified dementia, unspecified severity, without behavioral disturbance, psychotic disturbance, mood disturbance, and anxiety; E79.0 Hyperuricemia without signs of inflammatory arthritis and tophaceous disease; K21.9 Gastro-esophageal reflux disease without esophagitis; I49.3 Ventricular premature depolarization; E78.00 Pure hypercholesterolemia, unspecified; I25.5 Ischemic cardiomyopathy; I25.2 Old myocardial infarction; Z98.49 Cataract extraction status, unspecified eye; Z86.74 Personal history of sudden cardiac arrest; Z87.891 Personal history of nicotine dependence; Z95.1 Presence of aortocoronary bypass graft; Z79.82 Long term (current) use of aspirin; Z95.2 Presence of prosthetic heart valve; Z79.84 Long term (current) use of oral hypoglycemic drugs; Z99.81 Dependence on supplemental oxygen; Z79.899 Other long term (current) drug therapy; Z68.34 Body mass index [BMI] 34.0-34.9, adult

== ENCOUNTER → 2023-01-10 | Outpatient (REF) | payer MEDICARE, MEDICAID ==
[~2023-01-10] MED LIST changes: +ALLO100T PO; +AMIO200T49 PO; +ICAPCAP2 PO; +SODI0.9S IV
[2023-01-10 10:33] LABS: INR 1.12; PROTHROMBIN TIME 14.6 SECONDS (12.5-14.5)
== END ==
LOC: SKLAB2 08:34
PROVIDERS: ATTEND Internal Medicine
DX: Z79.01 Long term (current) use of anticoagulants (principal); Z95.1 Presence of aortocoronary bypass graft

== ENCOUNTER → 2023-01-11 | Outpatient (REF) | payer MEDICARE, MEDICAID | LOC: SKLAB2 07:00 | PROVIDERS: ATTEND Internal Medicine | DX: E11.649 Type 2 diabetes mellitus with hypoglycemia without coma (principal) ==

== ENCOUNTER → 2023-01-26 | Outpatient (REF) | payer MEDICARE ==
[~2023-01-26] MED LIST changes: -OFLO3OPSO OU; +OFLO5DRO OU
[2023-01-26 16:26] LABS: BASO # 0.1 10^3/uL (0.0-0.2); BASO % 0.9 % (0.0-1.0); EOS # 1.5 10^3/uL (0.0-0.5); EOS % 11.8 % (0.0-3.0); HEMATOCRIT 32.8 % (42.0-52.0); HEMOGLOBIN 10.2 g/dl (13.5-17.5); LYMPH # 1.9 10^3/uL (1.5-5.0); LYMPH % 14.8 % (24.0-44.0); MEAN CORPUSCULAR HEMOGLOBIN 29.7 pg (27.0-33.0); MEAN CORPUSCULAR HGB CONC 31.1 g/dl (32.0-36.5); MEAN CORPUSCULAR VOLUME 95.6 fl (80.0-96.0); MONO # 1.2 10^3/uL (0.0-0.8); MONO % 9.9 % (2.0-8.0); NEUTROPHILS # 7.8 10^3/uL (1.5-8.5); NEUTROPHILS % 61.9 % (36.0-66.0); PLATELET COUNT, AUTOMATED 427 10^3/uL (150-450); RED BLOOD COUNT 3.43 10^6/uL (4.30-6.10); WHITE BLOOD COUNT 12.6 10^3/uL (4.0-10.0)
[2023-01-26 16:27] LABS: ALBUMIN 2.8 G/DL (3.2-5.2); ALKALINE PHOSPHATASE 74 U/L (46-116); ALT/SGPT 27 U/L (7.0-40); AST/SGOT 36 U/L (<34); BILIRUBIN,TOTAL 0.5 MG/DL (0.3-1.2); BLOOD UREA NITROGEN 33 MG/DL (9-23); CALCIUM LEVEL 8.1 MG/DL (8.3-10.6); CARBON DIOXIDE LEVEL 29 MMOL/L (20-31); CHLORIDE LEVEL 100 MMOL/L (98-107); GLOMERULAR FILTRATION RATE 29.3 (>42); GLUCOSE, FASTING 196 MG/DL (74-106); MAGNESIUM LEVEL 1.3 MG/DL (1.8-2.4); POTASSIUM SERUM 3.7 MMOL/L (3.5-5.1); SODIUM LEVEL 138 MMOL/L (136-145); TOTAL PROTEIN 6.1 G/DL (5.7-8.2)
[2023-01-26 16:28] LABS: FOLATE > 24.0 NG/ML (>5.4); VITAMIN B12 LEVEL 507 PG/ML (211-911)
[2023-01-26 16:30] LABS: INR 2.64; PROTHROMBIN TIME 28.6 SECONDS (12.5-14.5)
[2023-01-26 17:07] LABS: HEMOGLOBIN A1c 5.7 % (4.0-6.0)
== END ==
LOC: M SFHCADAM 13:44
PROVIDERS: ATTEND Physician Assistant
DX: E53.8 Deficiency of other specified B group vitamins (principal); E11.9 Type 2 diabetes mellitus without complications; J44.9 Chronic obstructive pulmonary disease, unspecified; I25.10 Atherosclerotic heart disease of native coronary artery without angina pectoris; Z79.01 Long term (current) use of anticoagulants

== ENCOUNTER → 2023-02-02 | Outpatient (REF) | payer MEDICARE, MEDICAID ==
[2023-02-02 12:57] LABS: BASO # 0.1 10^3/uL (0.0-0.2); BASO % 0.5 % (0.0-1.0); EOS # 1.3 10^3/uL (0.0-0.5); EOS % 8.6 % (0.0-3.0); HEMATOCRIT 30.8 % (42.0-52.0); HEMOGLOBIN 9.7 g/dl (13.5-17.5); LYMPH # 2.1 10^3/uL (1.5-5.0); LYMPH % 13.5 % (24.0-44.0); MEAN CORPUSCULAR HEMOGLOBIN 29.3 pg (27.0-33.0); MEAN CORPUSCULAR HGB CONC 31.5 g/dl (32.0-36.5); MEAN CORPUSCULAR VOLUME 93.1 fl (80.0-96.0); NEUTROPHILS # 10.4 10^3/uL (1.5-8.5); NEUTROPHILS % 66.9 % (36.0-66.0); PLATELET COUNT, AUTOMATED 494 10^3/uL (150-450); RED BLOOD COUNT 3.31 10^6/uL (4.30-6.10); WHITE BLOOD COUNT 15.6 10^3/uL (4.0-10.0)
[2023-02-02 13:16] LABS: INR 2.99; PROTHROMBIN TIME 31.5 SECONDS (12.5-14.5)
[2023-02-02 13:26] LABS: CALCIUM LEVEL 7.9 MG/DL (8.3-10.6); CREATININE FOR GFR 2.02 MG/DL (0.70-1.30); GLOMERULAR FILTRATION RATE 34.1 (>42); POTASSIUM SERUM 3.5 MMOL/L (3.5-5.1)
[2023-02-02 13:38] LABS: MONO # 1.6 10^3/uL (0.0-0.8)
== END ==
LOC: M SHH 12:38
PROVIDERS: ATTEND Physician Assistant
DX: E83.42 Hypomagnesemia (principal); Z79.01 Long term (current) use of anticoagulants

== ENCOUNTER → 2023-02-02 | Outpatient (REF) | payer MEDICARE, MEDICAID | LOC: M SFHCADAM 17:12 | PROVIDERS: ATTEND Physician Assistant | DX: I50.20 Unspecified systolic (congestive) heart failure (principal); Z95.1 Presence of aortocoronary bypass graft; E83.42 Hypomagnesemia; Z53.9 Procedure and treatment not carried out, unspecified reason ==

== ENCOUNTER → 2023-02-09 | Outpatient (REF) | payer MEDICARE, MEDICAID ==
[2023-02-09 17:04] LABS: CALCIUM LEVEL 7.9 MG/DL (8.3-10.6); CREATININE FOR GFR 2.08 MG/DL (0.70-1.30); MAGNESIUM LEVEL 1.3 MG/DL (1.8-2.4); POTASSIUM SERUM 4.3 MMOL/L (3.5-5.1)
[2023-02-09 17:13] LABS: BASO # 0.1 10^3/uL (0.0-0.2); EOS # 1.5 10^3/uL (0.0-0.5); EOS % 13.5 % (0.0-3.0); HEMATOCRIT 30.3 % (42.0-52.0); HEMOGLOBIN 9.5 g/dl (13.5-17.5); LYMPH # 2.4 10^3/uL (1.5-5.0); MEAN CORPUSCULAR HEMOGLOBIN 30.2 pg (27.0-33.0); MEAN CORPUSCULAR HGB CONC 31.4 g/dl (32.0-36.5); MEAN CORPUSCULAR VOLUME 96.2 fl (80.0-96.0); MONO % 8.9 % (2.0-8.0); NEUTROPHILS # 5.8 10^3/uL (1.5-8.5); NEUTROPHILS % 53.8 % (36.0-66.0); PLATELET COUNT, AUTOMATED 585 10^3/uL (150-450); RED BLOOD COUNT 3.15 10^6/uL (4.30-6.10); WHITE BLOOD COUNT 10.9 10^3/uL (4.0-10.0)
[2023-02-09 17:23] LABS: INR 2.01; PROTHROMBIN TIME 23.1 SECONDS (12.5-14.5)
== END ==
LOC: M SHH 16:07
PROVIDERS: ATTEND Physician Assistant
DX: I50.20 Unspecified systolic (congestive) heart failure (principal); Z95.1 Presence of aortocoronary bypass graft; E83.42 Hypomagnesemia

== ENCOUNTER → 2023-02-23 | Outpatient (CLI) | payer MEDICARE, MEDICAID | LOC: M RAD 14:00 | PROVIDERS: ATTEND Physician Assistant | DX: L97.512 Non-pressure chronic ulcer of other part of right foot with fat layer exposed (principal) ==

== ENCOUNTER → 2023-02-24 | Outpatient (REF) | payer MEDICARE, MEDICAID | LOC: M SFHCADAM 12:05 | PROVIDERS: ATTEND Physician Assistant | DX: N18.4 Chronic kidney disease, stage 4 (severe) (principal); I50.22 Chronic systolic (congestive) heart failure; D64.9 Anemia, unspecified; I25.10 Atherosclerotic heart disease of native coronary artery without angina pectoris ==

== ENCOUNTER → 2023-02-28 | Outpatient (REF) | payer MEDICARE, MEDICAID ==
[2023-02-28 16:40] LABS: HEMATOCRIT 31.8 % (42.0-52.0); MEAN CORPUSCULAR HEMOGLOBIN 30.7 pg (27.0-33.0); MEAN CORPUSCULAR HGB CONC 31.4 g/dl (32.0-36.5); MEAN CORPUSCULAR VOLUME 97.5 fl (80.0-96.0); PLATELET COUNT, AUTOMATED 295 10^3/uL (150-450); RED BLOOD COUNT 3.26 10^6/uL (4.30-6.10); WHITE BLOOD COUNT 8.6 10^3/uL (4.0-10.0)
[2023-02-28 16:50] LABS: INR 1.05; PROTHROMBIN TIME 13.9 SECONDS (12.5-14.5)
[2023-02-28 17:15] LABS: CALCIUM LEVEL 8.4 MG/DL (8.3-10.6); CREATININE FOR GFR 1.57 MG/DL (0.70-1.30); GLOMERULAR FILTRATION RATE 45.6 (>42); POTASSIUM SERUM 3.9 MMOL/L (3.5-5.1)
== END ==
LOC: M SHH 15:56
PROVIDERS: ATTEND Surgery Vascular Surgery
DX: I72.8 Aneurysm of other specified arteries (principal)

== ENCOUNTER → 2023-03-01 | Outpatient (REF) | payer MEDICARE, MEDICAID ==
[2023-03-01 16:31] LABS: BASO # 0.1 10^3/uL (0.0-0.2); BASO % 0.8 % (0.0-1.0); EOS # 1.5 10^3/uL (0.0-0.5); HEMOGLOBIN 10.2 g/dl (13.5-17.5); LYMPH # 2.4 10^3/uL (1.5-5.0); LYMPH % 22.4 % (24.0-44.0); MEAN CORPUSCULAR HEMOGLOBIN 30.4 pg (27.0-33.0); MEAN CORPUSCULAR HGB CONC 30.9 g/dl (32.0-36.5); MEAN CORPUSCULAR VOLUME 98.5 fl (80.0-96.0); MONO % 9.6 % (2.0-8.0); NEUTROPHILS # 5.6 10^3/uL (1.5-8.5); NEUTROPHILS % 52.9 % (36.0-66.0); PLATELET COUNT, AUTOMATED 308 10^3/uL (150-450); RED BLOOD COUNT 3.35 10^6/uL (4.30-6.10); WHITE BLOOD COUNT 10.6 10^3/uL (4.0-10.0)
[2023-03-01 16:39] LABS: PERCENT SATURATION 30.8 % (19.7-50.0)
[2023-03-01 16:42] LABS: INR 0.96
[2023-03-01 17:10] LABS: FERRITIN 369.8 NG/ML (10.5-307.3)
[2023-03-01 17:14] LABS: ALBUMIN 3.1 G/DL (3.2-5.2); BILIRUBIN,TOTAL 0.4 MG/DL (0.3-1.2); CALCIUM LEVEL 8.6 MG/DL (8.3-10.6); CREATININE FOR GFR 1.59 MG/DL (0.70-1.30); FOLATE 14.7 NG/ML (>5.4); GLOMERULAR FILTRATION RATE 44.9 (>42); MAGNESIUM LEVEL 1.9 MG/DL (1.8-2.4); TOTAL PROTEIN 5.8 G/DL (5.7-8.2)
== END ==
LOC: M SFHCADAM 13:09
PROVIDERS: ATTEND Physician Assistant
DX: N18.4 Chronic kidney disease, stage 4 (severe) (principal); I50.22 Chronic systolic (congestive) heart failure; D64.9 Anemia, unspecified; I25.10 Atherosclerotic heart disease of native coronary artery without angina pectoris

== ENCOUNTER → 2023-03-08 | Outpatient (REF) | payer MEDICARE, MEDICAID ==
[2023-03-08 13:20] LABS: BASO # 0.1 10^3/uL (0.0-0.2); BASO % 0.8 % (0.0-1.0); EOS # 1.5 10^3/uL (0.0-0.5); EOS % 14.3 % (0.0-3.0); HEMATOCRIT 29.6 % (42.0-52.0); HEMOGLOBIN 9.3 g/dl (13.5-17.5); LYMPH % 18.2 % (24.0-44.0); MEAN CORPUSCULAR HEMOGLOBIN 30.6 pg (27.0-33.0); MEAN CORPUSCULAR HGB CONC 31.4 g/dl (32.0-36.5); MEAN CORPUSCULAR VOLUME 97.4 fl (80.0-96.0); MONO # 1.1 10^3/uL (0.0-0.8); MONO % 10.6 % (2.0-8.0); NEUTROPHILS % 55.6 % (36.0-66.0); PLATELET COUNT, AUTOMATED 310 10^3/uL (150-450); RED BLOOD COUNT 3.04 10^6/uL (4.30-6.10); WHITE BLOOD COUNT 10.8 10^3/uL (4.0-10.0)
[2023-03-08 13:34] LABS: INR 1.17; PROTHROMBIN TIME 15.1 SECONDS (12.5-14.5)
[2023-03-08 14:01] LABS: FOLATE 22.9 NG/ML (>5.4)
[2023-03-08 14:02] LABS: FERRITIN 317.2 NG/ML (10.5-307.3)
[2023-03-08 14:05] LABS: ALBUMIN 2.9 G/DL (3.2-5.2); BILIRUBIN,TOTAL 0.4 MG/DL (0.3-1.2); CALCIUM LEVEL 7.9 MG/DL (8.3-10.6); CREATININE FOR GFR 1.74 MG/DL (0.70-1.30); GLOMERULAR FILTRATION RATE 40.5 (>42); MAGNESIUM LEVEL 1.6 MG/DL (1.8-2.4); PERCENT SATURATION 14.2 % (19.7-50.0); POTASSIUM SERUM 4.3 MMOL/L (3.5-5.1); TOTAL PROTEIN 5.7 G/DL (5.7-8.2)
== END ==
LOC: M SHH 12:48
PROVIDERS: ATTEND Physician Assistant
DX: N18.4 Chronic kidney disease, stage 4 (severe) (principal); I50.22 Chronic systolic (congestive) heart failure; D64.9 Anemia, unspecified; I25.10 Atherosclerotic heart disease of native coronary artery without angina pectoris

== ENCOUNTER → 2023-03-13 | Outpatient (REF) | payer MEDICARE, MEDICAID | LOC: M SFHCADAM 10:43 | PROVIDERS: ATTEND Physician Assistant | DX: Z53.9 Procedure and treatment not carried out, unspecified reason (principal) ==

== ENCOUNTER → 2023-03-22 | Outpatient (REF) | payer MEDICARE, MEDICAID ==
[2023-03-22 17:13] LABS: PROTHROMBIN TIME 66.5 SECONDS (12.5-14.5)
[2023-03-22 18:54] LABS: INR 7.77
== END ==
LOC: M LABDRWAD 15:55
PROVIDERS: ATTEND Physician Assistant
DX: Z79.4 Long term (current) use of insulin (principal)

== ENCOUNTER → 2023-03-27 | Outpatient (CLI) | payer MEDICARE, MEDICAID ==
[~2023-03-27] MED LIST changes: +ACET-897 PO; +AMLO1TAB25 PO; +ATOR80TA59 PO; +BUDE0.5S6 INH; +CARV3.12 PO; +CETI-24 PO; +COLC0.6T47 PO; +DOXE25CA PO; +FERR32TA PO; +FOLI1TAB11 PO; +FURO80TA2 PO; +MAGN1TAB26 PO; +META0.52 PO; +OMEG10002 PO; +POTA-298 PO; +PRES10CA2 PO; +SPIR1AER INH; +TEMO0.0517 TOP; +VITA400C83 PO; +WARF4TAB52 PO
== END ==
LOC: M ADAMS 11:29
PROVIDERS: ATTEND Physician Assistant
DX: R91.8 Other nonspecific abnormal finding of lung field (principal); I11.0 Hypertensive heart disease with heart failure

== ENCOUNTER → 2023-03-27 | Outpatient (REF) | payer MEDICARE, MEDICAID ==
[~2023-03-27] MED LIST changes: -ACET-897 PO; -AMLO1TAB25 PO; -ATOR80TA59 PO; -BUDE0.5S6 INH; -CARV3.12 PO; -CETI-24 PO; -COLC0.6T47 PO; -DOXE25CA PO; -FERR32TA PO; -FOLI1TAB11 PO; -FURO80TA2 PO; -MAGN1TAB26 PO; -META0.52 PO; -OMEG10002 PO; -POTA-298 PO; -PRES10CA2 PO; -SPIR1AER INH; -TEMO0.0517 TOP; -VITA400C83 PO; -WARF4TAB52 PO
[2023-03-27 13:45] LABS: CREATININE FOR GFR 3.15 MG/DL (0.70-1.30); GLOMERULAR FILTRATION RATE 20.4 (>42); POTASSIUM SERUM 5.8 MMOL/L (3.5-5.1)
== END ==
LOC: M SFHCADAM 11:22
PROVIDERS: ATTEND Physician Assistant
DX: N18.4 Chronic kidney disease, stage 4 (severe) (principal)

== ENCOUNTER 2023-03-29 20:01 | Inpatient (IN) | payer MEDICARE, MEDICAID ==
[~2023-03-29] VITALS: Ht 170.2 cm; Wt 93.5 kg
[2023-03-29 20:55] LABS: BASO % 0.2 % (0.0-1.0); EOS # 0.6 10^3/uL (0.0-0.5); EOS % 6.9 % (0.0-3.0); HEMATOCRIT 28.3 % (42.0-52.0); HEMOGLOBIN 9.3 g/dl (13.5-17.5); LYMPH # 0.4 10^3/uL (1.5-5.0); LYMPH % 4.7 % (24.0-44.0); MEAN CORPUSCULAR HEMOGLOBIN 30.4 pg (27.0-33.0); MEAN CORPUSCULAR HGB CONC 32.9 g/dl (32.0-36.5); MEAN CORPUSCULAR VOLUME 92.5 fl (80.0-96.0); MONO # 0.2 10^3/uL (0.0-0.8); MONO % 1.8 % (2.0-8.0); NEUTROPHILS # 7.5 10^3/uL (1.5-8.5); NEUTROPHILS % 85.7 % (36.0-66.0); PLATELET COUNT, AUTOMATED 330 10^3/uL (150-450); RED BLOOD COUNT 3.06 10^6/uL (4.30-6.10); WHITE BLOOD COUNT 8.8 10^3/uL (4.0-10.0)
[2023-03-29] MEDS ORDERED: MORPHINE 2 MG/ML 1ML VIAL IV PRN (20:55)
[2023-03-29] MEDS ORDERED: ONDANSETRON 4MG 2ML VIAL IV ONE (20:55)
[2023-03-29 21:19] LABS: CK-MB VALUE MASS 2.7 NG/ML (<3.6)
[2023-03-29 21:20] LABS: MB/CK RELATIVE INDEX 5.09 (< OR =4)
[2023-03-29 21:21] LABS: ALBUMIN 3.1 G/DL (3.2-5.2); BILIRUBIN,DIRECT 0.2 MG/DL (<0.4); BILIRUBIN,TOTAL 0.4 MG/DL (0.3-1.2); CALCIUM LEVEL 7.6 MG/DL (8.3-10.6); CREATININE FOR GFR 4.22 MG/DL (0.70-1.30); GLOMERULAR FILTRATION RATE 14.6 (>42); POTASSIUM SERUM 5.5 MMOL/L (3.5-5.1)
[2023-03-29 21:34] LABS: ABG BASE EXCESS -2.1 (-2.0-2.0); ABG HCO3 21.7 MMOL/L (22.0-26.0); ABG O2 SATURATION 98.6 % (95.0-99.0); ABG PARTIAL PRESSURE CO2 33.2 mmHg (35.0-45.0); ABG PARTIAL PRESSURE O2 146.6 mmHg (75.0-100.0); ABG STANDARD HCO3 22.8 MMOL/L. (22.0-26.0); ABG TOTAL CO2 22.7 MMOL/L (23.0-31.0); ABG pH (ARTERIAL) 7.433 UNITS (7.350-7.450)
[2023-03-29] MEDS ORDERED: DEXTROSE 50% 50ML SYRINGE As Ordered ONE (23:18)
[2023-03-29] MEDS ORDERED: DEXTROSE 50% 50ML SYRINGE IV STA (23:24)
[2023-03-29] MEDS ORDERED: IPRATROPIUM 0.5MG/ALBUTEROL 2.5MG INH SOL UD 3ML (DUONEB) NEB ONE (23:50)
[2023-03-30] VITALS (11 sets, daily range): BP systolic 105–136; BP diastolic 46–84; TEMP 97.4–98.5; O2SAT 95–99
[2023-03-30] MEDS ORDERED: MED REC IN PROGRESS XX ONE
[2023-03-30] MEDS: IPRATROPIUM 0.5MG/ALBUTEROL 2.5MG INH SOL UD 3ML (DUONEB) NEB SCH ×4 (00:41→19:42)
[2023-03-30] MEDS: methylPREDNISolone 40MG 1ML VIAL IV SCH ×4 (00:46→23:58)
[2023-03-30 06:52] LABS: INR 2.39; PROTHROMBIN TIME 26.5 SECONDS (12.5-14.5)
[2023-03-30] MEDS ORDERED: ATOR80TA59 PO (06:56)
[2023-03-30] MEDS ORDERED: FERR32TA PO (06:56)
[2023-03-30] MEDS ORDERED: ALBU8.5H INH (06:56)
[2023-03-30] MEDS ORDERED: WARF4TAB52 PO (06:56)
[2023-03-30] MEDS ORDERED: CETI-24 PO (06:56)
[2023-03-30] MEDS ORDERED: TRAD5TAB PO (06:56)
[2023-03-30] MEDS ORDERED: MAGN1TAB26 PO (06:56)
[2023-03-30] MEDS ORDERED: OMEG10002 PO (06:56)
[2023-03-30] MEDS ORDERED: ACET-897 PO (06:56)
[2023-03-30] MEDS ORDERED: FURO80TA2 PO (06:56)
[2023-03-30] MEDS ORDERED: FOLI1TAB11 PO (06:56)
[2023-03-30] MEDS ORDERED: META0.52 PO (06:56)
[2023-03-30] MEDS ORDERED: VITA400C83 PO (06:56)
[2023-03-30] MEDS ORDERED: MONT10TA97 PO (06:56)
[2023-03-30] MEDS ORDERED: CARV3.12 PO (06:56)
[2023-03-30] MEDS ORDERED: TEMO0.0517 TOP (06:56)
[2023-03-30] MEDS ORDERED: GLIP10TA18 PO (06:56)
[2023-03-30] MEDS ORDERED: POTA-298 PO (06:56)
[2023-03-30] MEDS ORDERED: BUDE0.5S6 INH (06:56)
[2023-03-30] MEDS ORDERED: SPIR1AER INH (06:56)
[2023-03-30] MEDS ORDERED: AMLO1TAB25 PO (06:56)
[2023-03-30] MEDS ORDERED: COLC0.6T47 PO (06:56)
[2023-03-30] MEDS ORDERED: DOXE25CA PO (06:56)
[2023-03-30 06:57] LABS: CALCIUM LEVEL 7.5 MG/DL (8.3-10.6); CREATININE FOR GFR 4.3 MG/DL (0.70-1.30); GLOMERULAR FILTRATION RATE 14.3 (>42); MAGNESIUM LEVEL 1.9 MG/DL (1.8-2.4); POTASSIUM SERUM 4.7 MMOL/L (3.5-5.1)
[2023-03-30] MEDS ORDERED: PRES10CA2 PO (06:58)
[2023-03-30] MEDS ORDERED: HOME MED LIST COMPLETE! XX SCH (07:00)
[2023-03-30] MEDS ORDERED: ADVAIR HFA 230/21MCG INHALER INH SCH (08:00)
[2023-03-30 08:37] LABS: HEMOGLOBIN 8.9 g/dl (13.5-17.5); MEAN CORPUSCULAR HEMOGLOBIN 30.3 pg (27.0-33.0); MEAN CORPUSCULAR VOLUME 91.8 fl (80.0-96.0); PLATELET COUNT, AUTOMATED 313 10^3/uL (150-450); RED BLOOD COUNT 2.94 10^6/uL (4.30-6.10); WHITE BLOOD COUNT 18.3 10^3/uL (4.0-10.0)
[2023-03-30] MEDS: ACETAMINOPHEN 500 MG TAB PO SCH ×2 (09:00→21:43)
[2023-03-30] MEDS: ASPIRIN 81MG ENTERIC TABLET PO SCH ×2 (09:00→13:10)
[2023-03-30 09:19] LABS: CORTISOL AM 44.4 UG/DL (4.3-22.4)
[2023-03-30] MEDS ORDERED: NITROGLYCERIN 0.4MG SUBL TABLET SL PRN (10:35)
[2023-03-30] MEDS ORDERED: IPRATROPIUM 0.5MG/ALBUTEROL 2.5MG INH SOL UD 3ML (DUONEB) INH PRN (10:35)
[2023-03-30] MEDS ORDERED: COMBIVENT RESPIMAT 100-20MCG INHALER 4GM INH PRN (10:35)
[2023-03-30] MEDS ORDERED: CLOBETASOL PROP 0.05% OINT 30 GM TOP PRN (10:35)
[2023-03-30] MEDS ORDERED: ALBUTEROL 90 MCG/ACT 8GM HFA INHALER INH PRN (10:35)
[2023-03-30 11:32] LABS: TOTAL PROTEIN 5.9 G/DL (5.7-8.2)
[2023-03-30 11:36] LABS: INR 2.54; PROTHROMBIN TIME 27.8 SECONDS (12.5-14.5)
[2023-03-30 11:51] LABS: C REACTIVE PROTEIN QUANTITATIV 16.3 MG/DL (<1.0)
[2023-03-30] MEDS: BUDESONIDE 0.5 MG/2 ML INHALATION SUSPENSION INH SCH ×2 (12:47→19:41)
[2023-03-30] MEDS: METAMUCIL (PSYLLIUM) PACKET PO SCH (13:08)
[2023-03-30] MEDS: FENOFIBRATE 145MG TABLET (TRICOR) PO SCH (13:10)
[2023-03-30] MEDS: INSULIN LISPRO (NovoLOG) PER UNIT SC SCH ×3 (13:10→21:00)
[2023-03-30] MEDS: OMEPRAZOLE 20MG CAP PO SCH (13:11)
[2023-03-30] MEDS: OMEGA-3 1000MG CAPSULE PO SCH (13:11)
[2023-03-30] MEDS: ATORVASTATIN 20 MG TAB PO SCH (13:11)
[2023-03-30] MEDS: FERROUS GLUCONATE 324 MG TAB PO SCH ×2 (13:11→21:43)
[2023-03-30] MEDS: VITAMIN E 400 INTERNATIONAL UNITS CAP PO SCH (13:11)
[2023-03-30] MEDS: ACETAMINOPHEN TAB 650MG DOSE (2X325MG) PO PRN (13:11)
[2023-03-30] MEDS: FOLIC ACID 1MG TAB PO SCH (13:12)
[2023-03-30] MEDS: CARVedilol 3.125 MG TAB PO SCH ×2 (13:12→21:42)
[2023-03-30] MEDS: TIOTROPIUM INHALER/CAPSULE (SPIRIVA) INH SCH (13:31)
[2023-03-30] MEDS: ALBUTEROL SULFATE 2.5MG/0.5ML INH NEB SOLN NEB PRN (17:06)
[2023-03-30 17:32] LABS: PH BODY FLUID 7.561 UNITS (NOT ESTABLISHED); SOURCE, BODY FLUID pH PLEURAL
[2023-03-30 17:37] LABS: APPEARANCE, BODY FLUID CLOUDY (CLEAR); PLEURAL FL COLOR AMBER (COLORLESS); SOURCE, BODY FLUID PLEURAL
[2023-03-30 17:38] LABS: SOURCE, BODY FLUID GLUCOSE PLEURAL
[2023-03-30 17:39] LABS: LDH, BODY FLUID 271 U/L (NOT ESTABLISHED); SOURCE, BODY FLUID LDH PLEURAL
[2023-03-30 17:40] LABS: AMYLASE, BODY FLUID 21 U/L (NOT ESTABLISHED); SOURCE, BODY FLUID AMYLASE PLEURAL
[2023-03-30 17:41] LABS: SOURCE, BODY FLUID TOT PROTEIN PLEURAL; TOTAL PROTEIN, BODY FLUID 4.1 G/DL (NOT ESTABLISHED)
[2023-03-30] MEDS: DOXEPIN 25 MG CAP PO SCH (21:42)
[2023-03-30] MEDS: MONTELUKAST 10 MG TAB PO SCH (21:43)
[2023-03-30] MEDS: CETIRIZINE (ZyrTEC) 10 MG TAB PO SCH (21:43)
[2023-03-31] VITALS (47 sets, daily range): BP systolic 66–139; BP diastolic 40–73; TEMP 96.2–97.8; O2SAT 90–100
[2023-03-31] MEDS: ONDANSETRON 4MG 2ML VIAL IV PRN ×2 (00:13→17:03)
[2023-03-31] MEDS: IPRATROPIUM 0.5MG/ALBUTEROL 2.5MG INH SOL UD 3ML (DUONEB) NEB SCH ×4 (01:42→20:46)
[2023-03-31] MEDS ORDERED: LIDOCAINE 5% (LIDODERM) PATCH TD PRN (02:20)
[2023-03-31] MEDS: ACETAMINOPHEN TAB 650MG DOSE (2X325MG) PO PRN (03:16)
[2023-03-31] MEDS ORDERED: METOCLOPRAMIDE INJ 10MG/2ML VIAL IV PRN (03:30)
[2023-03-31 05:44] LABS: BASO % 0.1 % (0.0-1.0); HEMATOCRIT 23.4 % (42.0-52.0); HEMOGLOBIN 7.6 g/dl (13.5-17.5); LYMPH # 0.8 10^3/uL (1.5-5.0); MEAN CORPUSCULAR HGB CONC 32.5 g/dl (32.0-36.5); MEAN CORPUSCULAR VOLUME 92.5 fl (80.0-96.0); MONO # 0.7 10^3/uL (0.0-0.8); NEUTROPHILS # 14.8 10^3/uL (1.5-8.5); NEUTROPHILS % 90.3 % (36.0-66.0); RED BLOOD COUNT 2.53 10^6/uL (4.30-6.10); WHITE BLOOD COUNT 16.4 10^3/uL (4.0-10.0)
[2023-03-31 05:51] LABS: INR 3.52; PROTHROMBIN TIME 35.8 SECONDS (12.5-14.5)
[2023-03-31 06:22] LABS: CREATININE FOR GFR 4.71 MG/DL (0.70-1.30); GLOMERULAR FILTRATION RATE 12.8 (>42); POTASSIUM SERUM 5.2 MMOL/L (3.5-5.1)
[2023-03-31] MEDS: BUDESONIDE 0.5 MG/2 ML INHALATION SUSPENSION INH SCH ×2 (07:16→20:46)
[2023-03-31] MEDS: TIOTROPIUM INHALER/CAPSULE (SPIRIVA) INH SCH (07:16)
[2023-03-31] MEDS: PIPERACILLIN/TAZOBACTAM SOD 4.5 GM in D5W MINI-BAG PLUS 50 ML IV SCH ×2 (08:35→21:20)
[2023-03-31] MEDS: INSULIN LISPRO (NovoLOG) PER UNIT SC SCH ×4 (08:36→22:57)
[2023-03-31] MEDS: methylPREDNISolone 40MG 1ML VIAL IV SCH ×3 (08:36→23:01)
[2023-03-31 08:37] LABS: ABG O2 SATURATION 95.8 % (95.0-99.0); ABG PARTIAL PRESSURE CO2 33.5 mmHg (35.0-45.0); ABG STANDARD HCO3 18.7 MMOL/L. (22.0-26.0); ABG pH (ARTERIAL) 7.347 UNITS (7.350-7.450)
[2023-03-31] MEDS ORDERED: NS 500 ML IV ONE (08:40)
[2023-03-31] MEDS: FENOFIBRATE 145MG TABLET (TRICOR) PO SCH (09:00)
[2023-03-31] MEDS: VITAMIN E 400 INTERNATIONAL UNITS CAP PO SCH (09:00)
[2023-03-31] MEDS: ATORVASTATIN 20 MG TAB PO SCH (09:00)
[2023-03-31] MEDS: CARVedilol 3.125 MG TAB PO SCH ×2 (09:00→21:00)
[2023-03-31] MEDS: METAMUCIL (PSYLLIUM) PACKET PO SCH (09:00)
[2023-03-31] MEDS: OMEPRAZOLE 20MG CAP PO SCH (09:00)
[2023-03-31] MEDS: CETIRIZINE (ZyrTEC) 10 MG TAB PO SCH ×2 (09:00→22:57)
[2023-03-31] MEDS ORDERED: VANCOMYCIN HCL 750 MG, VIAL MATE ADAPTER 1 EACH in D5W 250 ML IV ONE ×2 (09:00→10:00)
[2023-03-31] MEDS: ACETAMINOPHEN 500 MG TAB PO SCH ×2 (09:00→22:57)
[2023-03-31] MEDS: OMEGA-3 1000MG CAPSULE PO SCH (09:00)
[2023-03-31] MEDS ORDERED: VANCOMYCIN INTERMITTENT/PULSE DOSING BY CLINICAL PHARMACIST PER DOSING PROTOCOL XX SCH (09:00)
[2023-03-31] MEDS ORDERED: WARFARIN SOD 1MG TAB PO SCH (09:00)
[2023-03-31] MEDS ORDERED: SODIUM CHLORIDE 0.9% 1000ML IV ONE (09:35)
[2023-03-31] MEDS ORDERED: DILUENT IV ONE (10:00)
[2023-03-31] MEDS ORDERED: PROTHROMBIN COMPLEX CONCEN IV ONE (10:00)
[2023-03-31] MEDS: NOREPINEPHRINE 4MG IN D5 250ML 4 MG in IV 1 EA IV SCH ×2 (10:15)
[2023-03-31] MEDS ORDERED: PHYTONADIONE INJection 10 MG in NS 50 ML IV ONE (10:30)
[2023-03-31 11:43] LABS: BASO % 0.1 % (0.0-1.0); LYMPH # 0.4 10^3/uL (1.5-5.0); LYMPH % 2.6 % (24.0-44.0); MEAN CORPUSCULAR HEMOGLOBIN 30.8 pg (27.0-33.0); MEAN CORPUSCULAR HGB CONC 32.6 g/dl (32.0-36.5); MEAN CORPUSCULAR VOLUME 94.4 fl (80.0-96.0); MONO # 0.9 10^3/uL (0.0-0.8); MONO % 5.5 % (2.0-8.0); NEUTROPHILS # 15.5 10^3/uL (1.5-8.5); NEUTROPHILS % 90.9 % (36.0-66.0); PLATELET COUNT, AUTOMATED 345 10^3/uL (150-450); RED BLOOD COUNT 1.95 10^6/uL (4.30-6.10)
[2023-03-31 11:49] LABS: HEMATOCRIT 18.4 % (42.0-52.0)
[2023-03-31] MEDS: VASOPRESSIN INJ 20 UNITS in NS 499 ML IV SCH ×3 (12:05→21:35)
[2023-03-31 12:09] LABS: INR 4.2; PROTHROMBIN TIME 41.1 SECONDS (12.5-14.5)
[2023-03-31 12:15] LABS: CK-MB VALUE MASS 2.7 NG/ML (<3.6)
[2023-03-31 12:43] LABS: ALBUMIN 2.2 G/DL (3.2-5.2); BILIRUBIN,TOTAL 0.5 MG/DL (0.3-1.2); CALCIUM LEVEL 6.9 MG/DL (8.3-10.6); CREATININE FOR GFR 4.86 MG/DL (0.70-1.30); GLOMERULAR FILTRATION RATE 12.4 (>42); MAGNESIUM LEVEL 2.1 MG/DL (1.8-2.4); MB/CK RELATIVE INDEX 0.89 (< OR =4); PHOSPHORUS LEVEL 10.9 MG/DL (2.4-5.1); POTASSIUM SERUM 5.1 MMOL/L (3.5-5.1); TOTAL PROTEIN 4.8 G/DL (5.7-8.2)
[2023-03-31] MEDS: ASPIRIN 81MG ENTERIC TABLET PO SCH (12:52)
[2023-03-31] MEDS: FOLIC ACID 1MG TAB PO SCH (12:53)
[2023-03-31] MEDS: HYDROMORPHONE HCL 0.5 MG/ 0.5 ML SYRINGE IV PRN ×2 (13:47→18:53)
[2023-03-31 15:59] LABS: BASO % 0.1 % (0.0-1.0); HEMATOCRIT 24.3 % (42.0-52.0); LYMPH # 0.4 10^3/uL (1.5-5.0); LYMPH % 3.5 % (24.0-44.0); MEAN CORPUSCULAR HEMOGLOBIN 30.6 pg (27.0-33.0); MEAN CORPUSCULAR HGB CONC 33.3 g/dl (32.0-36.5); MEAN CORPUSCULAR VOLUME 91.7 fl (80.0-96.0); MONO # 0.7 10^3/uL (0.0-0.8); MONO % 5.5 % (2.0-8.0); NEUTROPHILS # 11.3 10^3/uL (1.5-8.5); NEUTROPHILS % 89.9 % (36.0-66.0); PLATELET COUNT, AUTOMATED 291 10^3/uL (150-450); RED BLOOD COUNT 2.65 10^6/uL (4.30-6.10); WHITE BLOOD COUNT 12.6 10^3/uL (4.0-10.0)
[2023-03-31 16:03] LABS: INR 2.02; PROTHROMBIN TIME 23.2 SECONDS (12.5-14.5)
[2023-03-31 16:12] LABS: HEMOGLOBIN 8.1 g/dl (13.5-17.5)
[2023-03-31] MEDS ORDERED: ISOVUE-370 76% 100ML VIAL As Ordered ONE (20:15)
[2023-03-31] MEDS: DOXEPIN 25 MG CAP PO SCH (22:56)
[2023-03-31] MEDS: MONTELUKAST 10 MG TAB PO SCH (22:56)
[2023-04-01] VITALS (95 sets, daily range): BP systolic 82–173; BP diastolic 48–79; TEMP 97.6–98.9; O2SAT 83–100
[2023-04-01] MEDS: HYDROMORPHONE HCL 0.5 MG/ 0.5 ML SYRINGE IV PRN (01:35)
[2023-04-01] MEDS: IPRATROPIUM 0.5MG/ALBUTEROL 2.5MG INH SOL UD 3ML (DUONEB) NEB SCH ×4 (02:56→20:05)
[2023-04-01 04:54] LABS: HEMATOCRIT 22.3 % (42.0-52.0); HEMOGLOBIN 7.6 g/dl (13.5-17.5); MEAN CORPUSCULAR HEMOGLOBIN 30.3 pg (27.0-33.0); MEAN CORPUSCULAR HGB CONC 34.1 g/dl (32.0-36.5); MEAN CORPUSCULAR VOLUME 88.8 fl (80.0-96.0); PLATELET COUNT, AUTOMATED 244 10^3/uL (150-450); RED BLOOD COUNT 2.51 10^6/uL (4.30-6.10); WHITE BLOOD COUNT 10.9 10^3/uL (4.0-10.0)
[2023-04-01 05:05] LABS: INR 1.46
[2023-04-01 05:09] LABS: VANCOMYCIN RANDOM 11.2 UG/ML
[2023-04-01 05:10] LABS: CALCIUM LEVEL 6.5 MG/DL (8.3-10.6); CREATININE FOR GFR 5.12 MG/DL (0.70-1.30); GLOMERULAR FILTRATION RATE 11.7 (>42); POTASSIUM SERUM 5.3 MMOL/L (3.5-5.1)
[2023-04-01 05:37] LABS: LYMPHOCYTES 5 % (16-44); MONOCYTES 5 % (0-5); NEUTROPHILS 88 % (28-66); PLATELET ESTIMATE NORMAL (NORMAL)
[2023-04-01 05:38] LABS: ANISOCYTOSIS 1+
[2023-04-01 05:40] LABS: BURR CELLS 2+; OVALOCYTES 1+; SCHISTOCYTES 1+
[2023-04-01] MEDS: VASOPRESSIN INJ 20 UNITS in NS 499 ML IV SCH ×3 (07:08→23:40)
[2023-04-01] MEDS: TIOTROPIUM INHALER/CAPSULE (SPIRIVA) INH SCH (07:13)
[2023-04-01] MEDS: BUDESONIDE 0.5 MG/2 ML INHALATION SUSPENSION INH SCH ×2 (07:13→20:05)
[2023-04-01] MEDS: PIPERACILLIN/TAZOBACTAM SOD 4.5 GM in D5W MINI-BAG PLUS 50 ML IV SCH ×2 (08:13→20:31)
[2023-04-01] MEDS: ACETAMINOPHEN 500 MG TAB PO SCH ×2 (09:00→21:00)
[2023-04-01] MEDS: ASPIRIN 81MG ENTERIC TABLET PO SCH (09:00)
[2023-04-01] MEDS: FENOFIBRATE 145MG TABLET (TRICOR) PO SCH (09:00)
[2023-04-01] MEDS ORDERED: VANCOMYCIN HCL 1,000 MG, VIAL MATE ADAPTER 1 EACH in D5W 250 ML IV ONE (09:00)
[2023-04-01] MEDS: OMEPRAZOLE 20MG CAP PO SCH (09:00)
[2023-04-01] MEDS: CETIRIZINE (ZyrTEC) 10 MG TAB PO SCH ×2 (09:00→20:30)
[2023-04-01] MEDS: VITAMIN E 400 INTERNATIONAL UNITS CAP PO SCH (09:00)
[2023-04-01] MEDS: METAMUCIL (PSYLLIUM) PACKET PO SCH (09:00)
[2023-04-01] MEDS: FOLIC ACID 1MG TAB PO SCH (09:00)
[2023-04-01] MEDS: CARVedilol 3.125 MG TAB PO SCH ×2 (09:00→20:09)
[2023-04-01] MEDS: ATORVASTATIN 20 MG TAB PO SCH (09:00)
[2023-04-01] MEDS: OMEGA-3 1000MG CAPSULE PO SCH (09:00)
[2023-04-01] MEDS: INSULIN LISPRO (NovoLOG) PER UNIT SC SCH ×3 (09:12→17:52)
[2023-04-01] MEDS ORDERED: HEPARIN 1,000UNITS/ML 10ML VIAL (FOR RADIOLOGY & DIALYSIS ONLY) IV PRN (09:45)
[2023-04-01] MEDS ORDERED: SODIUM CHLORIDE 0.9% 1000ML IV PRN (09:45)
[2023-04-01] MEDS ORDERED: HEPARIN 1,000UNITS/ML 10ML VIAL (FOR RADIOLOGY & DIALYSIS ONLY) XX SCH (09:45)
[2023-04-01 11:04] LABS: HEPATITIS B SURFACE ANTIBODY NEGATIVE (POSITIVE)
[2023-04-01] MEDS ORDERED: GLUCAGON INJ 1MG VIAL SC PRN (11:10)
[2023-04-01] MEDS ORDERED: GLUCOSE 4GM CHEW TABLET PO PRN (11:10)
[2023-04-01] MEDS ORDERED: DEXTROSE 50% 50ML SYRINGE IV PRN (11:10)
[2023-04-01 11:16] LABS: HEPATITIS B SURFACE ANTIGEN NEGATIVE (NEGATIVE)
[2023-04-01 11:37] LABS: HEPATITIS B CORE ANTIBODY IGM NEGATIVE (NEGATIVE)
[2023-04-01] MEDS ORDERED: ETOMIDATE INJ 20MG/10ML VIAL IV STA (16:18)
[2023-04-01] MEDS: methylPREDNISolone 40MG 1ML VIAL IV SCH (16:18)
[2023-04-01] MEDS ORDERED: ROCURONIUM BROMIDE 50MG/5ML VIAL IV SCH (16:20)
[2023-04-01] MEDS ORDERED: ROCURONIUM BROMIDE 50MG/5ML VIAL As Ordered ONE (16:24)
[2023-04-01] MEDS: dexmedeTOMidine 200 MCG in IV 1 EA IV SCH ×2 (17:11→22:56)
[2023-04-01 17:22] LABS: ABG BASE EXCESS -5.6 (-2.0-2.0); ABG HCO3 22.1 MMOL/L (22.0-26.0); ABG O2 SATURATION 90.1 % (95.0-99.0); ABG PARTIAL PRESSURE CO2 54.5 mmHg (35.0-45.0); ABG STANDARD HCO3 19.7 MMOL/L. (22.0-26.0); ABG TOTAL CO2 23.7 MMOL/L (23.0-31.0)
[2023-04-01 17:28] LABS: ABG pH (ARTERIAL) 7.225 UNITS (7.350-7.450)
[2023-04-01] MEDS: DOXEPIN 25 MG CAP PO SCH (20:30)
[2023-04-01] MEDS: MONTELUKAST 10 MG TAB PO SCH (20:30)
[2023-04-01] MEDS: NOREPINEPHRINE 4MG IN D5 250ML 4 MG in IV 1 EA IV SCH ×2 (23:50)
[2023-04-01] MEDS: MIDAZOLAM INJ 2MG/2ML VIAL IV PRN (23:50)
[2023-04-02] VITALS (66 sets, daily range): BP systolic 73–159; BP diastolic 43–73; TEMP 97–99.2; O2SAT 95–100
[2023-04-02] MEDS: INSULIN LISPRO (NovoLOG) PER UNIT SC SCH ×4 (00:04→17:45)
[2023-04-02] MEDS: dexmedeTOMidine 200 MCG in IV 1 EA IV SCH ×7 (01:36→22:05)
[2023-04-02] MEDS: MIDAZOLAM INJ 2MG/2ML VIAL IV PRN ×10 (01:44→20:47)
[2023-04-02] MEDS: IPRATROPIUM 0.5MG/ALBUTEROL 2.5MG INH SOL UD 3ML (DUONEB) NEB SCH ×4 (03:42→19:14)
[2023-04-02 04:55] LABS: BASO % 0.2 % (0.0-1.0); LYMPH # 0.8 10^3/uL (1.5-5.0); LYMPH % 5.1 % (24.0-44.0); MEAN CORPUSCULAR HEMOGLOBIN 30.6 pg (27.0-33.0); MEAN CORPUSCULAR HGB CONC 34.3 g/dl (32.0-36.5); MEAN CORPUSCULAR VOLUME 89.1 fl (80.0-96.0); MONO # 1.2 10^3/uL (0.0-0.8); MONO % 7.6 % (2.0-8.0); NEUTROPHILS # 13.9 10^3/uL (1.5-8.5); NEUTROPHILS % 85.3 % (36.0-66.0); PLATELET COUNT, AUTOMATED 232 10^3/uL (150-450); RED BLOOD COUNT 2.29 10^6/uL (4.30-6.10); WHITE BLOOD COUNT 16.2 10^3/uL (4.0-10.0)
[2023-04-02 04:59] LABS: HEMATOCRIT 20.4 % (42.0-52.0)
[2023-04-02] MEDS: methylPREDNISolone 40MG 1ML VIAL IV SCH ×2 (05:01→17:45)
[2023-04-02 05:06] LABS: INR 1.18; PROTHROMBIN TIME 15.3 SECONDS (12.5-14.5)
[2023-04-02 05:24] LABS: ALBUMIN 2.2 G/DL (3.2-5.2); AST/SGOT 1000.00001 U/L (<34); BILIRUBIN,TOTAL 0.6 MG/DL (0.3-1.2); CALCIUM LEVEL 7.2 MG/DL (8.3-10.6); CREATININE FOR GFR 4.04 MG/DL (0.70-1.30); GLOMERULAR FILTRATION RATE 15.3 (>42); MAGNESIUM LEVEL 1.9 MG/DL (1.8-2.4); PHOSPHORUS LEVEL 9.2 MG/DL (2.4-5.1); POTASSIUM SERUM 4.7 MMOL/L (3.5-5.1); TOTAL PROTEIN 4.9 G/DL (5.7-8.2)
[2023-04-02] MEDS ORDERED: HEPARIN 1,000UNITS/ML 10ML VIAL (FOR RADIOLOGY & DIALYSIS ONLY) IV PRN (06:00)
[2023-04-02] MEDS ORDERED: SODIUM CHLORIDE 0.9% 1000ML IV PRN (06:00)
[2023-04-02 06:04] LABS: ABG BASE EXCESS -1.9 (-2.0-2.0); ABG HCO3 23.2 MMOL/L (22.0-26.0); ABG O2 SATURATION 98.4 % (95.0-99.0); ABG PARTIAL PRESSURE CO2 40.9 mmHg (35.0-45.0); ABG STANDARD HCO3 22.8 MMOL/L. (22.0-26.0); ABG TOTAL CO2 24.4 MMOL/L (23.0-31.0); ABG pH (ARTERIAL) 7.371 UNITS (7.350-7.450)
[2023-04-02] MEDS: CARVedilol 3.125 MG TAB PO SCH ×2 (07:10→20:19)
[2023-04-02] MEDS: TIOTROPIUM INHALER/CAPSULE (SPIRIVA) INH SCH (07:46)
[2023-04-02] MEDS: BUDESONIDE 0.5 MG/2 ML INHALATION SUSPENSION INH SCH ×2 (07:46→19:14)
[2023-04-02] MEDS ORDERED: VANCOMYCIN HCL 1,000 MG, VIAL MATE ADAPTER 1 EACH in D5W 250 ML IV ONE (09:00)
[2023-04-02] MEDS: METAMUCIL (PSYLLIUM) PACKET PO SCH (09:00)
[2023-04-02] MEDS: OMEGA-3 1000MG CAPSULE PO SCH (09:00)
[2023-04-02] MEDS: VITAMIN E 400 INTERNATIONAL UNITS CAP PO SCH (09:00)
[2023-04-02] MEDS: FENOFIBRATE 145MG TABLET (TRICOR) PO SCH (09:41)
[2023-04-02] MEDS: OMEPRAZOLE 20MG CAP PO SCH (09:41)
[2023-04-02] MEDS: ASPIRIN 81MG ENTERIC TABLET PO SCH (09:41)
[2023-04-02] MEDS: FOLIC ACID 1MG TAB PO SCH (09:42)
[2023-04-02] MEDS: CETIRIZINE (ZyrTEC) 10 MG TAB PO SCH ×2 (09:42→20:21)
[2023-04-02] MEDS: ATORVASTATIN 20 MG TAB PO SCH (09:43)
[2023-04-02] MEDS: PIPERACILLIN/TAZOBACTAM SOD 4.5 GM in D5W MINI-BAG PLUS 50 ML IV SCH ×2 (09:43→20:19)
[2023-04-02] MEDS: ACETAMINOPHEN 500 MG TAB PO SCH ×2 (09:46→20:21)
[2023-04-02 10:19] LABS: HEMATOCRIT 25.6 % (42.0-52.0); HEMOGLOBIN 8.7 g/dl (13.5-17.5); MEAN CORPUSCULAR HEMOGLOBIN 30.3 pg (27.0-33.0); MEAN CORPUSCULAR VOLUME 89.2 fl (80.0-96.0); PLATELET COUNT, AUTOMATED 204 10^3/uL (150-450); RED BLOOD COUNT 2.87 10^6/uL (4.30-6.10)
[2023-04-02] MEDS: VASOPRESSIN INJ 20 UNITS in NS 499 ML IV SCH ×2 (12:30→20:50)
[2023-04-02] MEDS: NOREPINEPHRINE 4MG IN D5 250ML 4 MG in IV 1 EA IV SCH ×2 (20:19)
[2023-04-02] MEDS: DOXEPIN 25 MG CAP PO SCH (20:20)
[2023-04-02] MEDS: MONTELUKAST 10 MG TAB PO SCH (20:20)
[2023-04-03] VITALS (84 sets, daily range): BP systolic 88–167; BP diastolic 54–75; TEMP 96.9–98; O2SAT 94–100
[2023-04-03] MEDS: dexmedeTOMidine 200 MCG in IV 1 EA IV SCH ×10 (00:09→22:05)
[2023-04-03] MEDS: MIDAZOLAM INJ 2MG/2ML VIAL IV PRN ×2 (00:12→04:20)
[2023-04-03] MEDS: INSULIN LISPRO (NovoLOG) PER UNIT SC SCH ×5 (00:14→23:41)
[2023-04-03] MEDS: NOREPINEPHRINE 4MG IN D5 250ML 4 MG in IV 1 EA IV SCH ×8 (02:11→23:00)
[2023-04-03] MEDS: IPRATROPIUM 0.5MG/ALBUTEROL 2.5MG INH SOL UD 3ML (DUONEB) NEB SCH ×4 (03:01→19:37)
[2023-04-03] MEDS: methylPREDNISolone 40MG 1ML VIAL IV SCH ×2 (04:44→17:40)
[2023-04-03] MEDS: VASOPRESSIN INJ 20 UNITS in NS 499 ML IV SCH (04:45)
[2023-04-03 05:16] LABS: BASO % 0.2 % (0.0-1.0); EOS % 0.1 % (0.0-3.0); HEMATOCRIT 23.7 % (42.0-52.0); HEMOGLOBIN 7.9 g/dl (13.5-17.5); LYMPH # 0.7 10^3/uL (1.5-5.0); MEAN CORPUSCULAR HGB CONC 33.3 g/dl (32.0-36.5); MEAN CORPUSCULAR VOLUME 90.1 fl (80.0-96.0); MONO # 1.1 10^3/uL (0.0-0.8); MONO % 6.8 % (2.0-8.0); NEUTROPHILS # 14.3 10^3/uL (1.5-8.5); NEUTROPHILS % 86.5 % (36.0-66.0); PLATELET COUNT, AUTOMATED 176 10^3/uL (150-450); RED BLOOD COUNT 2.63 10^6/uL (4.30-6.10); WHITE BLOOD COUNT 16.5 10^3/uL (4.0-10.0)
[2023-04-03 05:31] LABS: INR 1.21; PROTHROMBIN TIME 15.6 SECONDS (12.5-14.5)
[2023-04-03 05:55] LABS: ABG HCO3 22.5 MMOL/L (22.0-26.0); ABG O2 SATURATION 98.3 % (95.0-99.0); ABG PARTIAL PRESSURE CO2 37.2 mmHg (35.0-45.0); ABG PARTIAL PRESSURE O2 117.7 mmHg (75.0-100.0); ABG STANDARD HCO3 22.8 MMOL/L. (22.0-26.0); ABG TOTAL CO2 23.7 MMOL/L (23.0-31.0)
[2023-04-03 05:56] LABS: ALBUMIN 2.1 G/DL (3.2-5.2); BILIRUBIN,TOTAL 0.6 MG/DL (0.3-1.2); CALCIUM LEVEL 6.9 MG/DL (8.3-10.6); CREATININE FOR GFR 3.03 MG/DL (0.70-1.30); GLOMERULAR FILTRATION RATE 21.4 (>42); MAGNESIUM LEVEL 2.1 MG/DL (1.8-2.4); POTASSIUM SERUM 4.2 MMOL/L (3.5-5.1); TOTAL PROTEIN 4.9 G/DL (5.7-8.2)
[2023-04-03] MEDS ORDERED: SODIUM CHLORIDE 0.9% 1000ML IV PRN (06:00)
[2023-04-03] MEDS ORDERED: HEPARIN 1,000UNITS/ML 10ML VIAL (FOR RADIOLOGY & DIALYSIS ONLY) XX SCH (06:00)
[2023-04-03] MEDS ORDERED: HEPARIN 1,000UNITS/ML 10ML VIAL (FOR RADIOLOGY & DIALYSIS ONLY) IV PRN (06:00)
[2023-04-03] MEDS: TIOTROPIUM INHALER/CAPSULE (SPIRIVA) INH SCH (08:00)
[2023-04-03] MEDS: BUDESONIDE 0.5 MG/2 ML INHALATION SUSPENSION INH SCH ×2 (08:03→19:37)
[2023-04-03] MEDS: PIPERACILLIN/TAZOBACTAM SOD 4.5 GM in D5W MINI-BAG PLUS 50 ML IV SCH ×2 (08:15→20:33)
[2023-04-03] MEDS: VITAMIN E 400 INTERNATIONAL UNITS CAP PO SCH (09:00)
[2023-04-03] MEDS: METAMUCIL (PSYLLIUM) PACKET PO SCH (09:00)
[2023-04-03] MEDS: OMEGA-3 1000MG CAPSULE PO SCH (09:00)
[2023-04-03] MEDS: CARVedilol 3.125 MG TAB PO SCH ×2 (09:00→20:31)
[2023-04-03] MEDS: ACETAMINOPHEN 500 MG TAB PO SCH ×2 (09:00→20:34)
[2023-04-03] MEDS: FENOFIBRATE 145MG TABLET (TRICOR) PO SCH (09:02)
[2023-04-03] MEDS: OMEPRAZOLE 20MG CAP PO SCH (09:04)
[2023-04-03] MEDS: ATORVASTATIN 20 MG TAB PO SCH (09:04)
[2023-04-03] MEDS: FOLIC ACID 1MG TAB PO SCH (09:04)
[2023-04-03] MEDS: CETIRIZINE (ZyrTEC) 10 MG TAB PO SCH ×2 (09:04→20:33)
[2023-04-03] MEDS: ASPIRIN 81MG ENTERIC TABLET PO SCH (09:04)
[2023-04-03] MEDS ORDERED: VANCOMYCIN HCL 750 MG, VIAL MATE ADAPTER 1 EACH in D5W 250 ML IV ONE (16:00)
[2023-04-03 16:08] LABS: BODY FLUID CULTURE Not indicated. (.); LEGIONELLA ANTIGEN URINE Negative (Negative); ORGANISM ID Not indicated. (.); SPECIMEN SOURCE Urine (.); URINE STREP PNEUMONIAE ANTIGEN Negative (Negative)
[2023-04-03] MEDS: HYDROMORPHONE HCL 0.5 MG/ 0.5 ML SYRINGE IV PRN ×3 (17:40→23:42)
[2023-04-03] MEDS: DOXEPIN 25 MG CAP PO SCH (20:33)
[2023-04-03] MEDS: MONTELUKAST 10 MG TAB PO SCH (20:33)
[2023-04-04] VITALS (56 sets, daily range): BP systolic 74–178; BP diastolic 52–97; TEMP 97.6–99.9; O2SAT 83–100
[2023-04-04] MEDS: IPRATROPIUM 0.5MG/ALBUTEROL 2.5MG INH SOL UD 3ML (DUONEB) NEB SCH ×4 (00:03→19:10)
[2023-04-04] MEDS: MIDAZOLAM INJ 2MG/2ML VIAL IV PRN (00:37)
[2023-04-04] MEDS: dexmedeTOMidine 200 MCG in IV 1 EA IV SCH ×4 (00:41→06:16)
[2023-04-04 05:43] LABS: ABG BASE EXCESS 2.7 (-2.0-2.0); ABG HCO3 26.3 MMOL/L (22.0-26.0); ABG O2 SATURATION 90.7 % (95.0-99.0); ABG PARTIAL PRESSURE CO2 36.4 mmHg (35.0-45.0); ABG PARTIAL PRESSURE O2 61.1 mmHg (75.0-100.0); ABG STANDARD HCO3 26.8 MMOL/L. (22.0-26.0); ABG TOTAL CO2 27.4 MMOL/L (23.0-31.0); ABG pH (ARTERIAL) 7.477 UNITS (7.350-7.450)
[2023-04-04] MEDS: methylPREDNISolone 40MG 1ML VIAL IV SCH ×2 (05:43→17:07)
[2023-04-04] MEDS: INSULIN LISPRO (NovoLOG) PER UNIT SC SCH ×4 (05:44→23:55)
[2023-04-04] MEDS: NOREPINEPHRINE 4MG IN D5 250ML 4 MG in IV 1 EA IV SCH ×6 (05:44→18:43)
[2023-04-04] MEDS: HYDROMORPHONE HCL 0.5 MG/ 0.5 ML SYRINGE IV PRN ×3 (05:56→22:56)
[2023-04-04 06:14] LABS: HEMATOCRIT 25.9 % (42.0-52.0); HEMOGLOBIN 8.7 g/dl (13.5-17.5); MEAN CORPUSCULAR HGB CONC 33.6 g/dl (32.0-36.5); MEAN CORPUSCULAR VOLUME 89.3 fl (80.0-96.0); PLATELET COUNT, AUTOMATED 136 10^3/uL (150-450)
[2023-04-04 06:24] LABS: INR 1.37; PROTHROMBIN TIME 17.1 SECONDS (12.5-14.5)
[2023-04-04 06:37] LABS: ANISOCYTOSIS 1+; ATYPICAL LYMPH 1 % (0-5); LYMPHOCYTES 5 % (16-44); MONOCYTES 5 % (0-5); MYELOCYTES 2 % (0-0); NEUTROPHILS 87 % (28-66); PLATELET ESTIMATE DECREASED (NORMAL)
[2023-04-04 06:38] LABS: POIKILOCYTOSIS 1+; POLYCHROMASIA 1+
[2023-04-04 06:43] LABS: ALBUMIN 2.3 G/DL (3.2-5.2); BILIRUBIN,TOTAL 0.6 MG/DL (0.3-1.2); CALCIUM LEVEL 7.4 MG/DL (8.3-10.6); CREATININE FOR GFR 2.09 MG/DL (0.70-1.30); GLOMERULAR FILTRATION RATE 32.8 (>42); MAGNESIUM LEVEL 2.1 MG/DL (1.8-2.4); POTASSIUM SERUM 4.1 MMOL/L (3.5-5.1); TOTAL PROTEIN 5.1 G/DL (5.7-8.2)
[2023-04-04] MEDS: TIOTROPIUM INHALER/CAPSULE (SPIRIVA) INH SCH (07:06)
[2023-04-04] MEDS: BUDESONIDE 0.5 MG/2 ML INHALATION SUSPENSION INH SCH ×2 (07:06→19:10)
[2023-04-04] MEDS: OMEGA-3 1000MG CAPSULE PO SCH (09:00)
[2023-04-04] MEDS: ASPIRIN 81MG ENTERIC TABLET PO SCH (09:00)
[2023-04-04] MEDS: CARVedilol 3.125 MG TAB PO SCH ×2 (09:00→20:59)
[2023-04-04] MEDS: VITAMIN E 400 INTERNATIONAL UNITS CAP PO SCH (09:00)
[2023-04-04] MEDS: PIPERACILLIN/TAZOBACTAM SOD 4.5 GM in D5W MINI-BAG PLUS 50 ML IV SCH ×2 (09:05→20:43)
[2023-04-04] MEDS: METAMUCIL (PSYLLIUM) PACKET PO SCH (09:06)
[2023-04-04] MEDS: ACETAMINOPHEN 500 MG TAB PO SCH ×2 (09:06→20:59)
[2023-04-04] MEDS: FENOFIBRATE 145MG TABLET (TRICOR) PO SCH (09:06)
[2023-04-04] MEDS: CETIRIZINE (ZyrTEC) 10 MG TAB PO SCH ×2 (09:07→20:59)
[2023-04-04] MEDS: OMEPRAZOLE 20MG CAP PO SCH (09:07)
[2023-04-04] MEDS: ATORVASTATIN 20 MG TAB PO SCH (09:07)
[2023-04-04] MEDS: FOLIC ACID 1MG TAB PO SCH (09:08)
[2023-04-04] MEDS ORDERED: CALCIUM GLUCONATE 1,000 MG in D5W MINI-BAG PLUS 100 ML IV ONE (12:00)
[2023-04-04] MEDS ORDERED: AMIODARONE HCL 150 MG in IV 1 EA IV STA (14:23)
[2023-04-04] MEDS ORDERED: AMIODARONE HCL 150 MG/100 ML PREMIXED BAG (NEXTERONE) As Ordered ONE (14:27)
[2023-04-04] MEDS ORDERED: AMIODARONE HCL 360 MG in IV 1 EA IV SCH (15:00)
[2023-04-04] MEDS ORDERED: CARVedilol 3.125 MG TAB PO ONE (15:05)
[2023-04-04] MEDS: AMIODARONE HCL 360 MG in IV 1 EA IV SCH (20:51)
[2023-04-04] MEDS: MONTELUKAST 10 MG TAB PO SCH (20:59)
[2023-04-04] MEDS: DOXEPIN 25 MG CAP PO SCH (20:59)
[2023-04-04] MEDS: ALBUTEROL SULFATE 2.5MG/0.5ML INH NEB SOLN NEB PRN (22:42)
[2023-04-05] VITALS (32 sets, daily range): BP systolic 124–176; BP diastolic 56–81; TEMP 97.1–98.7; O2SAT 92–100
[2023-04-05 01:32] LABS: CALCIUM LEVEL 7.4 MG/DL (8.3-10.6); CREATININE FOR GFR 2.56 MG/DL (0.70-1.30); GLOMERULAR FILTRATION RATE 25.9 (>42); MAGNESIUM LEVEL 2.1 MG/DL (1.8-2.4); POTASSIUM SERUM 3.8 MMOL/L (3.5-5.1)
[2023-04-05] MEDS: KCL 10MEQ/100ML SWI (KRUN) 10 MEQ in IV 1 EA IV SCH ×2 (01:47→03:00)
[2023-04-05] MEDS: IPRATROPIUM 0.5MG/ALBUTEROL 2.5MG INH SOL UD 3ML (DUONEB) NEB SCH ×4 (02:00→19:45)
[2023-04-05] MEDS ORDERED: METOPROLOL 5 MG/5 ML VIAL IV STA ×2 (02:12)
[2023-04-05] MEDS ORDERED: METOPROLOL 5 MG/5 ML VIAL IV ONE (02:27)
[2023-04-05] MEDS ORDERED: LEVALBUTEROL HFA 45MCG/ACT 15GM INHALER INH ONE (03:00)
[2023-04-05] MEDS: HYDROMORPHONE HCL 0.5 MG/ 0.5 ML SYRINGE IV PRN (03:54)
[2023-04-05] MEDS: methylPREDNISolone 40MG 1ML VIAL IV SCH (05:53)
[2023-04-05] MEDS: INSULIN LISPRO (NovoLOG) PER UNIT SC SCH ×3 (05:57→18:18)
[2023-04-05 06:06] LABS: HEMATOCRIT 29.6 % (42.0-52.0); HEMOGLOBIN 9.8 g/dl (13.5-17.5); MEAN CORPUSCULAR HEMOGLOBIN 29.9 pg (27.0-33.0); MEAN CORPUSCULAR HGB CONC 33.1 g/dl (32.0-36.5); MEAN CORPUSCULAR VOLUME 90.2 fl (80.0-96.0); PLATELET COUNT, AUTOMATED 190 10^3/uL (150-450); RED BLOOD COUNT 3.28 10^6/uL (4.30-6.10); WHITE BLOOD COUNT 26.5 10^3/uL (4.0-10.0)
[2023-04-05 06:20] LABS: INR 1.76; PROTHROMBIN TIME 20.8 SECONDS (12.5-14.5)
[2023-04-05 06:47] LABS: ALBUMIN 2.5 G/DL (3.2-5.2); BILIRUBIN,TOTAL 0.8 MG/DL (0.3-1.2); CALCIUM LEVEL 7.9 MG/DL (8.3-10.6); CREATININE FOR GFR 2.59 MG/DL (0.70-1.30); GLOMERULAR FILTRATION RATE 25.6 (>42); MAGNESIUM LEVEL 2.2 MG/DL (1.8-2.4); POTASSIUM SERUM 4.1 MMOL/L (3.5-5.1); TOTAL PROTEIN 5.5 G/DL (5.7-8.2)
[2023-04-05 06:52] LABS: LYMPHOCYTES 7 % (16-44); MONOCYTES 9 % (0-5); MYELOCYTES 2 % (0-0); NEUTROPHILS 82 % (28-66)
[2023-04-05 06:53] LABS: ANISOCYTOSIS 1+; PLATELET ESTIMATE NORMAL (NORMAL); POIKILOCYTOSIS 1+; POLYCHROMASIA 1+; SCHISTOCYTES 1+
[2023-04-05] MEDS: AMIODARONE HCL 360 MG in IV 1 EA IV SCH (07:36)
[2023-04-05] MEDS: TIOTROPIUM INHALER/CAPSULE (SPIRIVA) INH SCH (08:08)
[2023-04-05] MEDS: BUDESONIDE 0.5 MG/2 ML INHALATION SUSPENSION INH SCH ×2 (08:08→19:45)
[2023-04-05] MEDS: PIPERACILLIN/TAZOBACTAM SOD 4.5 GM in D5W MINI-BAG PLUS 50 ML IV SCH ×2 (08:18→20:04)
[2023-04-05] MEDS: FOLIC ACID 1MG TAB PO SCH (09:00)
[2023-04-05] MEDS: METAMUCIL (PSYLLIUM) PACKET PO SCH (09:00)
[2023-04-05] MEDS: OMEGA-3 1000MG CAPSULE PO SCH (09:00)
[2023-04-05] MEDS: OMEPRAZOLE 20MG CAP PO SCH (09:00)
[2023-04-05] MEDS: ATORVASTATIN 20 MG TAB PO SCH (09:00)
[2023-04-05] MEDS: ASPIRIN 81MG ENTERIC TABLET PO SCH (09:00)
[2023-04-05] MEDS: CETIRIZINE (ZyrTEC) 10 MG TAB PO SCH ×2 (09:00→20:05)
[2023-04-05] MEDS: ACETAMINOPHEN 500 MG TAB PO SCH ×2 (09:00→20:04)
[2023-04-05] MEDS: VITAMIN E 400 INTERNATIONAL UNITS CAP PO SCH (09:00)
[2023-04-05] MEDS: FENOFIBRATE 145MG TABLET (TRICOR) PO SCH (09:00)
[2023-04-05 09:02] LABS: VANCOMYCIN RANDOM 16.9 UG/ML
[2023-04-05] MEDS: CARVedilol 3.125 MG TAB PO SCH ×2 (09:08→20:05)
[2023-04-05] MEDS ORDERED: FUROSEMIDE 100MG/10ML VIAL IV ONE (10:55)
[2023-04-05] MEDS: AMIODARONE 200 MG TAB (PACERONE) PO SCH ×2 (11:27→20:05)
[2023-04-05] MEDS: HEPARIN SOD (PORCINE) 5000UNITS/ML 1ML VIAL/SYRINGE SQ SCH ×2 (14:07→21:39)
[2023-04-05] MEDS ORDERED: VANCOMYCIN HCL 750 MG, VIAL MATE ADAPTER 1 EACH in D5W 250 ML IV SCH (16:00)
[2023-04-05] MEDS: ALBUTEROL SULFATE 2.5MG/0.5ML INH NEB SOLN NEB PRN (18:01)
[2023-04-05] MEDS: MONTELUKAST 10 MG TAB PO SCH (20:05)
[2023-04-05] MEDS: DOXEPIN 25 MG CAP PO SCH (20:05)
[2023-04-06] VITALS (8 sets, daily range): BP systolic 103–169; BP diastolic 53–69; TEMP 96.5–98.8; O2SAT 94–97
[2023-04-06] MEDS: INSULIN LISPRO (NovoLOG) PER UNIT SC SCH ×4 (00:16→18:24)
[2023-04-06] MEDS: IPRATROPIUM 0.5MG/ALBUTEROL 2.5MG INH SOL UD 3ML (DUONEB) NEB SCH ×4 (00:50→19:31)
[2023-04-06] MEDS: HEPARIN SOD (PORCINE) 5000UNITS/ML 1ML VIAL/SYRINGE SQ SCH ×3 (06:02→22:57)
[2023-04-06 06:36] LABS: CALCIUM LEVEL 7.9 MG/DL (8.3-10.6); CREATININE FOR GFR 2.61 MG/DL (0.70-1.30); GLOMERULAR FILTRATION RATE 25.4 (>42); POTASSIUM SERUM 4.3 MMOL/L (3.5-5.1); VANCOMYCIN RANDOM 13.5 UG/ML
[2023-04-06 06:38] LABS: HEMATOCRIT 30.4 % (42.0-52.0); HEMOGLOBIN 10.3 g/dl (13.5-17.5); MEAN CORPUSCULAR HEMOGLOBIN 30.2 pg (27.0-33.0); MEAN CORPUSCULAR HGB CONC 33.9 g/dl (32.0-36.5); MEAN CORPUSCULAR VOLUME 89.1 fl (80.0-96.0); PLATELET COUNT, AUTOMATED 234 10^3/uL (150-450); RED BLOOD COUNT 3.41 10^6/uL (4.30-6.10); WHITE BLOOD COUNT 25.8 10^3/uL (4.0-10.0)
[2023-04-06 07:22] LABS: ATYPICAL LYMPH 1 % (0-5); EOSINOPHILS 1 % (0-3); LYMPHOCYTES 8 % (16-44); MONOCYTES 11 % (0-5); NEUTROPHILS 79 % (28-66); PLATELET ESTIMATE NORMAL (NORMAL)
[2023-04-06 08:00] LABS: INR 2.02; PROTHROMBIN TIME 23.2 SECONDS (12.5-14.5)
[2023-04-06] MEDS ORDERED: VANCOMYCIN HCL 500 MG in D5W MINI-BAG PLUS 100 ML IV ONE (08:00)
[2023-04-06 08:01] LABS: FIBRINOGEN 427 MG/DL (268-480); PARTIAL THROMBOPLASTIN TIME 35.6 SECONDS (24.8-34.2)
[2023-04-06] MEDS: BUDESONIDE 0.5 MG/2 ML INHALATION SUSPENSION INH SCH ×2 (08:02→19:31)
[2023-04-06] MEDS: TIOTROPIUM INHALER/CAPSULE (SPIRIVA) INH SCH (08:02)
[2023-04-06 08:32] LABS: ALBUMIN 2.3 G/DL (3.2-5.2); BILIRUBIN,DIRECT 0.3 MG/DL (<0.4); BILIRUBIN,TOTAL 0.8 MG/DL (0.3-1.2); TOTAL PROTEIN 5.1 G/DL (5.7-8.2)
[2023-04-06 08:45] LABS: D-DIMER QUANT > 4000 ng/ml (<500)
[2023-04-06] MEDS: METAMUCIL (PSYLLIUM) PACKET PO SCH (09:00)
[2023-04-06] MEDS: VITAMIN E 400 INTERNATIONAL UNITS CAP PO SCH (09:00)
[2023-04-06] MEDS: OMEGA-3 1000MG CAPSULE PO SCH (09:00)
[2023-04-06] MEDS: CARVedilol 3.125 MG TAB PO SCH ×2 (09:55→20:31)
[2023-04-06] MEDS: methylPREDNISolone 40MG 1ML VIAL IV SCH (09:55)
[2023-04-06] MEDS: ASPIRIN 81MG ENTERIC TABLET PO SCH (09:56)
[2023-04-06] MEDS: FENOFIBRATE 145MG TABLET (TRICOR) PO SCH (09:56)
[2023-04-06] MEDS: OMEPRAZOLE 20MG CAP PO SCH (09:56)
[2023-04-06] MEDS: ACETAMINOPHEN 500 MG TAB PO SCH ×2 (09:56→20:30)
[2023-04-06] MEDS: CETIRIZINE (ZyrTEC) 10 MG TAB PO SCH ×2 (09:56→20:30)
[2023-04-06] MEDS: ATORVASTATIN 20 MG TAB PO SCH (09:56)
[2023-04-06] MEDS: AMIODARONE 200 MG TAB (PACERONE) PO SCH ×2 (09:56→20:31)
[2023-04-06] MEDS: FOLIC ACID 1MG TAB PO SCH (09:57)
[2023-04-06] MEDS: PIPERACILLIN/TAZOBACTAM SOD 4.5 GM in D5W MINI-BAG PLUS 50 ML IV SCH (10:00)
[2023-04-06] MEDS: FUROSEMIDE 20 MG TAB PO SCH (10:51)
[2023-04-06] MEDS ORDERED: VANCOMYCIN INTERMITTENT/PULSE DOSING BY CLINICAL PHARMACIST PER DOSING PROTOCOL XX SCH (11:00)
[2023-04-06] MEDS ORDERED: VARIBAR PUDDING 40% w/v 230ML TUBE As Ordered ONE (13:56)
[2023-04-06] MEDS ORDERED: E-Z-PAQUE 96% w/w SUSP 176GM BTL As Ordered ONE (13:57)
[2023-04-06] MEDS ORDERED: VARIBAR NECTAR 40% w/v 240ML SUSP BTL As Ordered ONE (13:57)
[2023-04-06] MEDS: LevoFLOXacin 750 MG TABLET PO SCH (17:24)
[2023-04-06] MEDS ORDERED: PIPERACILLIN/TAZOBACTAM SOD 4.5 GM in D5W MINI-BAG PLUS 50 ML IV SCH (18:00)
[2023-04-06] MEDS: MONTELUKAST 10 MG TAB PO SCH (20:30)
[2023-04-06] MEDS: DOXEPIN 25 MG CAP PO SCH (20:47)
[2023-04-07 00:10] VITALS: BP 115/62; TEMP 98.2; O2SAT 95
[2023-04-07] MEDS: INSULIN LISPRO (NovoLOG) PER UNIT SC SCH ×4 (00:33→18:34)
[2023-04-07] MEDS: IPRATROPIUM 0.5MG/ALBUTEROL 2.5MG INH SOL UD 3ML (DUONEB) NEB SCH ×4 (02:14→20:03)
[2023-04-07 04:15] VITALS: BP 140/65; TEMP 98.1; O2SAT 95
[2023-04-07 05:19] LABS: HEMOGLOBIN 9.9 g/dl (13.5-17.5); MEAN CORPUSCULAR HEMOGLOBIN 29.8 pg (27.0-33.0); MEAN CORPUSCULAR VOLUME 90.4 fl (80.0-96.0); PLATELET COUNT, AUTOMATED 245 10^3/uL (150-450); RED BLOOD COUNT 3.32 10^6/uL (4.30-6.10); WHITE BLOOD COUNT 20.4 10^3/uL (4.0-10.0)
[2023-04-07 05:40] LABS: CALCIUM LEVEL 7.7 MG/DL (8.3-10.6); CREATININE FOR GFR 2.59 MG/DL (0.70-1.30); GLOMERULAR FILTRATION RATE 25.6 (>42); POTASSIUM SERUM 3.8 MMOL/L (3.5-5.1)
[2023-04-07 05:44] LABS: ANISOCYTOSIS 1+; ATYPICAL LYMPH 1 % (0-5); LYMPHOCYTES 8 % (16-44); METAMYELOCYTES 2 % (0-0); MONOCYTES 3 % (0-5); NEUTROPHILS 86 % (28-66); PLATELET CLUMPS SMALL AMT; PLATELET ESTIMATE NORMAL (NORMAL)
[2023-04-07] MEDS: HEPARIN SOD (PORCINE) 5000UNITS/ML 1ML VIAL/SYRINGE SQ SCH ×3 (06:23→21:21)
[2023-04-07 07:35] VITALS: BP 132/65; TEMP 98.1; O2SAT 96
[2023-04-07] MEDS: BUDESONIDE 0.5 MG/2 ML INHALATION SUSPENSION INH SCH ×2 (07:41→20:03)
[2023-04-07] MEDS: TIOTROPIUM INHALER/CAPSULE (SPIRIVA) INH SCH (07:41)
[2023-04-07 08:48] LABS: MAGNESIUM LEVEL 2.1 MG/DL (1.8-2.4)
[2023-04-07] MEDS: OMEGA-3 1000MG CAPSULE PO SCH (09:00)
[2023-04-07] MEDS ORDERED: DARBEPOETIN 100MCG/0.5ML *NON-DIALYSIS* SYRINGE SC SCH (09:00)
[2023-04-07] MEDS: METAMUCIL (PSYLLIUM) PACKET PO SCH (09:00)
[2023-04-07] MEDS: VITAMIN E 400 INTERNATIONAL UNITS CAP PO SCH (09:00)
[2023-04-07] MEDS: ATORVASTATIN 20 MG TAB PO SCH (09:40)
[2023-04-07] MEDS: FUROSEMIDE 20 MG TAB PO SCH (09:40)
[2023-04-07] MEDS: ASPIRIN 81MG ENTERIC TABLET PO SCH (09:40)
[2023-04-07] MEDS: FENOFIBRATE 145MG TABLET (TRICOR) PO SCH (09:41)
[2023-04-07] MEDS: CARVedilol 3.125 MG TAB PO SCH (09:41)
[2023-04-07] MEDS: AMIODARONE 200 MG TAB (PACERONE) PO SCH ×2 (09:41→21:20)
[2023-04-07] MEDS: FOLIC ACID 1MG TAB PO SCH (09:42)
[2023-04-07] MEDS: OMEPRAZOLE 20MG CAP PO SCH (09:42)
[2023-04-07] MEDS: ACETAMINOPHEN 500 MG TAB PO SCH (09:42)
[2023-04-07] MEDS: CETIRIZINE (ZyrTEC) 10 MG TAB PO SCH ×2 (09:42→21:20)
[2023-04-07] MEDS: methylPREDNISolone 40MG 1ML VIAL IV SCH (09:43)
[2023-04-07] MEDS ORDERED: LIDOCAINE 1% MDV 20ML VIAL As Ordered ONE (10:50)
[2023-04-07 11:05] LABS: INR 2.12; PROTHROMBIN TIME 24.1 SECONDS (12.5-14.5)
[2023-04-07 16:20] VITALS: BP 118/67; TEMP 97.1; O2SAT 96
[2023-04-07] MEDS: SODIUM CHLORIDE 0.9% INJ 10 ML SYR IV SCH (18:35)
[2023-04-07] MEDS: SODIUM CHLORIDE 0.9% INJ 10 ML SYR IV PRN (18:38)
[2023-04-07 20:00] VITALS: BP 119/67; TEMP 97.5; O2SAT 98
[2023-04-07] MEDS: MONTELUKAST 10 MG TAB PO SCH (21:21)
[2023-04-07] MEDS: DOXEPIN 25 MG CAP PO SCH (21:21)
[2023-04-07] MEDS: CARVedilol 6.25 MG TAB PO SCH (21:21)
[2023-04-08] VITALS: BP 152/77; TEMP 96.6; O2SAT 95
[2023-04-08] MEDS: INSULIN LISPRO (NovoLOG) PER UNIT SC SCH ×5 (00:46→18:39)
[2023-04-08] MEDS: IPRATROPIUM 0.5MG/ALBUTEROL 2.5MG INH SOL UD 3ML (DUONEB) NEB SCH ×4 (00:49→19:19)
[2023-04-08] MEDS: AMIODARONE 200 MG TAB (PACERONE) PO SCH ×4 (05:56→21:30)
[2023-04-08] MEDS: HEPARIN SOD (PORCINE) 5000UNITS/ML 1ML VIAL/SYRINGE SQ SCH ×3 (06:10→21:29)
[2023-04-08] MEDS: SODIUM CHLORIDE 0.9% INJ 10 ML SYR IV SCH ×2 (06:11→17:33)
[2023-04-08 06:20] LABS: BASO # 0.1 10^3/uL (0.0-0.2); BASO % 0.3 % (0.0-1.0); HEMATOCRIT 32.4 % (42.0-52.0); HEMOGLOBIN 10.6 g/dl (13.5-17.5); LYMPH % 9.6 % (24.0-44.0); MEAN CORPUSCULAR HEMOGLOBIN 30.3 pg (27.0-33.0); MEAN CORPUSCULAR HGB CONC 32.7 g/dl (32.0-36.5); MEAN CORPUSCULAR VOLUME 92.6 fl (80.0-96.0); MONO % 8.2 % (2.0-8.0); NEUTROPHILS # 16.3 10^3/uL (1.5-8.5); NEUTROPHILS % 78.5 % (36.0-66.0); PLATELET COUNT, AUTOMATED 295 10^3/uL (150-450); WHITE BLOOD COUNT 20.8 10^3/uL (4.0-10.0)
[2023-04-08 06:33] LABS: INR 2.14; PROTHROMBIN TIME 24.3 SECONDS (12.5-14.5)
[2023-04-08 06:43] LABS: CALCIUM LEVEL 8.1 MG/DL (8.3-10.6); CREATININE FOR GFR 2.48 MG/DL (0.70-1.30); GLOMERULAR FILTRATION RATE 26.9 (>42); MAGNESIUM LEVEL 2.3 MG/DL (1.8-2.4)
[2023-04-08 06:50] LABS: MONO # 1.7 10^3/uL (0.0-0.8)
[2023-04-08] MEDS: BUDESONIDE 0.5 MG/2 ML INHALATION SUSPENSION INH SCH ×2 (07:16→19:20)
[2023-04-08] MEDS: TIOTROPIUM INHALER/CAPSULE (SPIRIVA) INH SCH (07:16)
[2023-04-08 08:00] VITALS: TEMP 97.6
[2023-04-08] MEDS ORDERED: OLANZapine INTRAMUSCULAR 10MG VIAL IM ONE (08:15)
[2023-04-08 08:57] VITALS: BP 146/73; O2SAT 95
[2023-04-08] MEDS: OMEGA-3 1000MG CAPSULE PO SCH (09:00)
[2023-04-08] MEDS: VITAMIN E 400 INTERNATIONAL UNITS CAP PO SCH (09:00)
[2023-04-08] MEDS: METAMUCIL (PSYLLIUM) PACKET PO SCH (09:00)
[2023-04-08] MEDS: OMEPRAZOLE 20MG CAP PO SCH (09:26)
[2023-04-08] MEDS: CETIRIZINE (ZyrTEC) 10 MG TAB PO SCH ×2 (09:26→21:31)
[2023-04-08] MEDS: methylPREDNISolone 40MG 1ML VIAL IV SCH (09:26)
[2023-04-08] MEDS: ATORVASTATIN 20 MG TAB PO SCH (09:26)
[2023-04-08] MEDS: FUROSEMIDE 20 MG TAB PO SCH (09:27)
[2023-04-08] MEDS: ASPIRIN 81MG ENTERIC TABLET PO SCH (09:27)
[2023-04-08] MEDS: FOLIC ACID 1MG TAB PO SCH (09:27)
[2023-04-08] MEDS: FENOFIBRATE 145MG TABLET (TRICOR) PO SCH (09:27)
[2023-04-08] MEDS: CARVedilol 6.25 MG TAB PO SCH ×2 (09:28→21:31)
[2023-04-08] MEDS ORDERED: OLANZapine 5 MG TAB PO PRN (11:10)
[2023-04-08 11:14] VITALS: BP 131/63; TEMP 97.2; O2SAT 91
[2023-04-08] MEDS: ALBUTEROL SULFATE 2.5MG/0.5ML INH NEB SOLN NEB PRN (12:24)
[2023-04-08 15:20] VITALS: BP 125/63; TEMP 97.3; O2SAT 93
[2023-04-08] MEDS: LevoFLOXacin 750 MG TABLET PO SCH (17:31)
[2023-04-08] MEDS: SODIUM CHLORIDE 0.9% INJ 10 ML SYR IV PRN (17:33)
[2023-04-08] MEDS ORDERED: AMINO AC/ELECTROLYTE/DEX/CALC 2,000 ML IV SCH (18:00)
[2023-04-08] MEDS ORDERED: FAT EMULSION IV 250 ML IV ONE (18:00)
[2023-04-08 20:00] VITALS: BP 129/63; TEMP 98; O2SAT 92
[2023-04-08 20:41] LABS: APPEARANCE, URINE CLOUDY (CLEAR); BACTERIA, URINE AUTO 1+ (NEGATIVE); BILIRUBIN, URINE AUTO NEGATIVE (NEGATIVE); BLOOD, URINE BLOOD 3+ (NEGATIVE); COLOR, URINE YELLOW (YELLOW); GLUCOSE, URINE (UA) AUTO 1+ mg/dL (NEGATIVE); KETONE, URINE AUTO NEGATIVE (NEGATIVE); LEUKOCYTE ESTERASE, URINE AUTO 1+ (NEGATIVE); MUCUS, URINE MODERATE (NEGATIVE); NITRITE, URINE AUTO NEGATIVE (NEGATIVE); PROTEIN, URINE AUTO NEGATIVE (NEGATIVE); RBC, URINE AUTO 94 /HPF (0-3); SPECIFIC GRAVITY URINE AUTO 1.012 (1.002-1.035); SQUAMOUS EPITHELIAL CELL UR AU 1 /HPF (0-6); URIC ACID CRYSTALS MODERATE; UROBILINOGEN, URINE AUTO 0.2 mg/dL (0.0-2.0); WBC, URINE AUTO 11 /HPF (0-3)
[2023-04-08] MEDS: DOXEPIN 25 MG CAP PO SCH (21:29)
[2023-04-08] MEDS: MONTELUKAST 10 MG TAB PO SCH (21:29)
[2023-04-09] VITALS (17 sets, daily range): BP systolic 112–147; BP diastolic 56–76; TEMP 96.9–97.8; O2SAT 94–100
[2023-04-09] MEDS: IPRATROPIUM 0.5MG/ALBUTEROL 2.5MG INH SOL UD 3ML (DUONEB) NEB SCH ×4 (01:16→20:00)
[2023-04-09 05:33] LABS: BASO # 0.1 10^3/uL (0.0-0.2); BASO % 0.2 % (0.0-1.0); HEMOGLOBIN 10.5 g/dl (13.5-17.5); LYMPH # 1.3 10^3/uL (1.5-5.0); LYMPH % 6.2 % (24.0-44.0); MEAN CORPUSCULAR HEMOGLOBIN 29.9 pg (27.0-33.0); MEAN CORPUSCULAR HGB CONC 31.8 g/dl (32.0-36.5); NEUTROPHILS % 78.9 % (36.0-66.0); PLATELET COUNT, AUTOMATED 340 10^3/uL (150-450); RED BLOOD COUNT 3.51 10^6/uL (4.30-6.10); WHITE BLOOD COUNT 20.3 10^3/uL (4.0-10.0)
[2023-04-09 05:44] LABS: INR 1.83; PROTHROMBIN TIME 21.5 SECONDS (12.5-14.5)
[2023-04-09 05:56] LABS: CALCIUM LEVEL 8.6 MG/DL (8.3-10.6); CREATININE FOR GFR 2.39 MG/DL (0.70-1.30); GLOMERULAR FILTRATION RATE 28.1 (>42); MAGNESIUM LEVEL 2.2 MG/DL (1.8-2.4); MONO # 2.2 10^3/uL (0.0-0.8)
[2023-04-09] MEDS: HEPARIN SOD (PORCINE) 5000UNITS/ML 1ML VIAL/SYRINGE SQ SCH ×3 (06:18→21:00)
[2023-04-09] MEDS: INSULIN LISPRO (NovoLOG) PER UNIT SC SCH ×4 (06:18→17:53)
[2023-04-09] MEDS: SODIUM CHLORIDE 0.9% INJ 10 ML SYR IV SCH ×2 (06:19→17:17)
[2023-04-09] MEDS: BUDESONIDE 0.5 MG/2 ML INHALATION SUSPENSION INH SCH ×2 (07:28→20:00)
[2023-04-09] MEDS: TIOTROPIUM INHALER/CAPSULE (SPIRIVA) INH SCH (07:28)
[2023-04-09] MEDS ORDERED: cefTRIAXone SOD 1 GM in D5W MINI-BAG PLUS 50 ML IV SCH (08:00)
[2023-04-09] MEDS ORDERED: predniSONE 20 MG TAB PO SCH (09:00)
[2023-04-09] MEDS: CETIRIZINE (ZyrTEC) 10 MG TAB PO SCH (09:00)
[2023-04-09] MEDS: OMEGA-3 1000MG CAPSULE PO SCH (09:00)
[2023-04-09] MEDS: AMIODARONE 200 MG TAB (PACERONE) PO SCH (09:00)
[2023-04-09] MEDS: CARVedilol 6.25 MG TAB PO SCH (09:00)
[2023-04-09] MEDS: FOLIC ACID 1MG TAB PO SCH (09:00)
[2023-04-09] MEDS: ASPIRIN 81MG ENTERIC TABLET PO SCH (09:00)
[2023-04-09] MEDS: ATORVASTATIN 20 MG TAB PO SCH (09:00)
[2023-04-09] MEDS: VITAMIN E 400 INTERNATIONAL UNITS CAP PO SCH (09:00)
[2023-04-09] MEDS: FENOFIBRATE 145MG TABLET (TRICOR) PO SCH (09:00)
[2023-04-09] MEDS: OMEPRAZOLE 20MG CAP PO SCH (09:00)
[2023-04-09] MEDS: METAMUCIL (PSYLLIUM) PACKET PO SCH (09:00)
[2023-04-09] MEDS ORDERED: LEVEMIR (INSULIN DETEMIR) 1 UNITS/0.01ML SC SCH (09:00)
[2023-04-09] MEDS: D5W 1,000 ML IV SCH ×3 (09:07→22:36)
[2023-04-09] MEDS: ALBUTEROL SULFATE 2.5MG/0.5ML INH NEB SOLN NEB PRN (11:37)
[2023-04-09] MEDS: PANTOPRAZOLE 40MG VIAL IV SCH (12:49)
[2023-04-09] MEDS: METOPROLOL 5 MG/5 ML VIAL IV SCH ×2 (12:51→17:16)
[2023-04-09] MEDS: methylPREDNISolone 40MG 1ML VIAL IV SCH (12:55)
[2023-04-09] MEDS: PIPERACILLIN/TAZOBACTAM SOD 3.375 GM in D5W MINI-BAG PLUS 50 ML IV SCH ×2 (13:40→17:56)
[2023-04-09] MEDS ORDERED: LEVEMIR (INSULIN DETEMIR) 1 UNITS/0.01ML SC ONE (14:45)
[2023-04-09] MEDS: SODIUM CHLORIDE 0.9% INJ 10 ML SYR IV PRN (17:17)
[2023-04-09] MEDS ORDERED: AMINO AC/ELECTROLYTE/DEX/CALC 2,000 ML IV SCH (18:00)
[2023-04-09] MEDS ORDERED: FAT EMULSION IV 250 ML IV ONE (18:00)
[2023-04-09] MEDS ORDERED: INSULIN LISPRO (NovoLOG) PER UNIT SC ONE (18:00)
[2023-04-09] MEDS ORDERED: INSULIN LISPRO (NovoLOG) PER UNIT SC SCH (18:00)
[2023-04-09] MEDS ORDERED: INSULIN LISPRO (NovoLOG) PER UNIT SC STA (21:33)
[2023-04-10] MEDS: IPRATROPIUM 0.5MG/ALBUTEROL 2.5MG INH SOL UD 3ML (DUONEB) NEB SCH ×3 (01:23→13:08)
[2023-04-10 03:36] VITALS: BP 139/66; TEMP 97.8; O2SAT 98
[2023-04-10 05:09] LABS: BASO # 0.1 10^3/uL (0.0-0.2); BASO % 0.2 % (0.0-1.0); HEMATOCRIT 33.2 % (42.0-52.0); HEMOGLOBIN 10.4 g/dl (13.5-17.5); LYMPH # 1.1 10^3/uL (1.5-5.0); LYMPH % 4.5 % (24.0-44.0); MEAN CORPUSCULAR HEMOGLOBIN 29.9 pg (27.0-33.0); MEAN CORPUSCULAR HGB CONC 31.3 g/dl (32.0-36.5); MEAN CORPUSCULAR VOLUME 95.4 fl (80.0-96.0); MONO % 11.4 % (2.0-8.0); NEUTROPHILS # 19.4 10^3/uL (1.5-8.5); NEUTROPHILS % 81.8 % (36.0-66.0); PLATELET COUNT, AUTOMATED 341 10^3/uL (150-450); RED BLOOD COUNT 3.48 10^6/uL (4.30-6.10); WHITE BLOOD COUNT 23.7 10^3/uL (4.0-10.0)
[2023-04-10 05:11] LABS: MONO # 2.7 10^3/uL (0.0-0.8)
[2023-04-10 05:22] LABS: INR 1.32; PROTHROMBIN TIME 16.6 SECONDS (12.5-14.5)
[2023-04-10 05:37] LABS: ALBUMIN 2.3 G/DL (3.2-5.2); BILIRUBIN,DIRECT 0.3 MG/DL (<0.4); BILIRUBIN,TOTAL 0.7 MG/DL (0.3-1.2); CALCIUM LEVEL 8.6 MG/DL (8.3-10.6); CREATININE FOR GFR 2.04 MG/DL (0.70-1.30); GLOMERULAR FILTRATION RATE 33.7 (>42); MAGNESIUM LEVEL 2.2 MG/DL (1.8-2.4); POTASSIUM SERUM 4.4 MMOL/L (3.5-5.1); TOTAL PROTEIN 5.2 G/DL (5.7-8.2)
[2023-04-10] MEDS ORDERED: POTASSIUM CHLORIDE 10MEQ SR TABLET PO ONE (05:50)
[2023-04-10] MEDS: SODIUM CHLORIDE 0.9% INJ 10 ML SYR IV SCH ×2 (05:57→18:00)
[2023-04-10] MEDS: PIPERACILLIN/TAZOBACTAM SOD 3.375 GM in D5W MINI-BAG PLUS 50 ML IV SCH ×4 (06:05→13:45)
[2023-04-10] MEDS: METOPROLOL 5 MG/5 ML VIAL IV SCH ×3 (06:06→12:47)
[2023-04-10] MEDS: INSULIN LISPRO (NovoLOG) PER UNIT SC SCH ×3 (06:06→12:47)
[2023-04-10] MEDS: HEPARIN SOD (PORCINE) 5000UNITS/ML 1ML VIAL/SYRINGE SQ SCH ×2 (06:06→12:47)
[2023-04-10] MEDS: BUDESONIDE 0.5 MG/2 ML INHALATION SUSPENSION INH SCH (07:10)
[2023-04-10] MEDS: TIOTROPIUM INHALER/CAPSULE (SPIRIVA) INH SCH (07:11)
[2023-04-10 07:32] VITALS: BP 149/66; TEMP 97.2; O2SAT 97
[2023-04-10] MEDS: methylPREDNISolone 40MG 1ML VIAL IV SCH (08:18)
[2023-04-10] MEDS: PANTOPRAZOLE 40MG VIAL IV SCH (08:18)
[2023-04-10] MEDS ORDERED: LEVEMIR (INSULIN DETEMIR) 1 UNITS/0.01ML SC SCH ×2 (09:00)
[2023-04-10] MEDS ORDERED: LevoFLOXacin IV 750 MG in IV 1 EA IV ONE (09:00)
[2023-04-10 11:12] VITALS: BP 132/63; TEMP 97.3; O2SAT 98
[2023-04-10] MEDS ORDERED: OLANZapine INTRAMUSCULAR 10MG VIAL IM PRN (12:40)
[2023-04-10 12:47] VITALS: BP 132/63
[2023-04-10] MEDS ORDERED: IPRATROPIUM 0.5MG/ALBUTEROL 2.5MG INH SOL UD 3ML (DUONEB) NEB PRN (14:00)
[2023-04-10] MEDS ORDERED: LORazepam 1 MG TAB PO PRN (15:05)
[2023-04-10] MEDS ORDERED: HYOSCYAMINE SULFATE 0.125 MG SUBL TABLET PO PRN (15:05)
[2023-04-10] MEDS ORDERED: INSULIN LISPRO (NovoLOG) PER UNIT SC SCH (18:00)
[2023-04-10] MEDS ORDERED: MULTIVITAMIN -ADULT INJECTION 10 ML, ZINC/COPPER/MANGANESE/SELENIUM 1 ML in AMINO AC/EL... IV SCH (18:00)
[2023-04-10] MEDS ORDERED: FAT EMULSION IV 250 ML IV ONE (18:00)
[2023-04-10] MEDS: MORPHINE 10MG/0.5ML ORAL CONCENTRATE SOLUTION U/D SL PRN (18:59)
[2023-04-10] MEDS ORDERED: MORPHINE 2 MG/ML 1ML VIAL IV PRN (19:00)
[2023-04-10] MEDS: LORazepam 2 MG/ML 1ML VIAL IV PRN (19:07)
[2023-04-11] MEDS: SODIUM CHLORIDE 0.9% INJ 10 ML SYR IV SCH ×2 (05:59→18:23)
[2023-04-11] MEDS: MORPHINE 10MG/0.5ML ORAL CONCENTRATE SOLUTION U/D SL PRN ×2 (11:02→21:07)
[2023-04-11] MEDS: LORazepam 2 MG/ML 1ML VIAL IV PRN ×2 (14:14→21:07)
[2023-04-12] MEDS: MORPHINE 10MG/0.5ML ORAL CONCENTRATE SOLUTION U/D SL PRN ×4 (03:08→12:41)
[2023-04-12] MEDS: LORazepam 2 MG/ML 1ML VIAL IV PRN ×5 (03:08→19:36)
[2023-04-12] MEDS: SODIUM CHLORIDE 0.9% INJ 10 ML SYR IV SCH ×2 (05:30→19:37)
[2023-04-12] MEDS: SODIUM CHLORIDE 0.9% INJ 10 ML SYR IV PRN ×2 (11:03→12:41)
[2023-04-13] MEDS: LORazepam 2 MG/ML 1ML VIAL IV PRN (04:24)
[2023-04-13] MEDS: SODIUM CHLORIDE 0.9% INJ 10 ML SYR IV SCH (05:37)
[2023-04-13] MEDS: MORPHINE 10MG/0.5ML ORAL CONCENTRATE SOLUTION U/D SL PRN ×2 (05:43→11:03)
[2023-04-13] MEDS ORDERED: HYOS125TA PO (09:20)
[2023-04-13] MEDS ORDERED: MORP1SOL5 PO (09:20)
[2023-04-13] MEDS ORDERED: ATIV1TAB10 PO (09:20)
== END 2023-04-13 11:06 | disposition hospice, home (50) | DRG 814 ==
LOC: M ED 20:01 → M ED INP 23:44 → ENRESERV 03-30 08:36 → M PCU 03-30 09:12 → M ICU 03-31 10:10 → M PCU 04-06 01:46
PROVIDERS: ADMIT Internal Medicine; ATTEND Internal Medicine
PROC: 0W9B3ZX Drainage of Left Pleural Cavity, Percutaneous Approach, Diagnostic (ICD-10-PCS; 2023-03-30)
PROC: 30233N1 Transfusion of Nonautologous Red Blood Cells into Peripheral Vein, Percutaneous Approach (ICD-10-PCS; 2023-03-30)
PROC: 02H633Z Insertion of Infusion Device into Right Atrium, Percutaneous Approach (ICD-10-PCS; principal; 2023-03-31)
PROC: 5A1D70Z Performance of Urinary Filtration, Intermittent, Less than 6 Hours Per Day (ICD-10-PCS; 2023-04-01)
PROC: 0BH17EZ Insertion of Endotracheal Airway into Trachea, Via Natural or Artificial Opening (ICD-10-PCS; 2023-04-01)
PROC: 02H633Z Insertion of Infusion Device into Right Atrium, Percutaneous Approach (ICD-10-PCS; 2023-04-01)
PROC: 0CCM8ZZ Extirpation of Matter from Pharynx, Via Natural or Artificial Opening Endoscopic (ICD-10-PCS; 2023-04-01)
PROC: 5A1945Z Respiratory Ventilation, 24-96 Consecutive Hours (ICD-10-PCS; 2023-04-01)
PROC: 02HV33Z Insertion of Infusion Device into Superior Vena Cava, Percutaneous Approach (ICD-10-PCS; 2023-04-07)
DX: D73.5 Infarction of spleen (principal); R57.8 Other shock; G93.41 Metabolic encephalopathy; A41.9 Sepsis, unspecified organism; J96.21 Acute and chronic respiratory failure with hypoxia; K66.1 Hemoperitoneum; J18.9 Pneumonia, unspecified organism; I50.23 Acute on chronic systolic (congestive) heart failure; R57.1 Hypovolemic shock; J69.0 Pneumonitis due to inhalation of food and vomit; J44.1 Chronic obstructive pulmonary disease with (acute) exacerbation; J90 Pleural effusion, not elsewhere classified; N17.9 Acute kidney failure, unspecified; I13.0 Hypertensive heart and chronic kidney disease with heart failure and stage 1 through stage 4 chronic kidney disease, or unspecified chronic kidney disease; N18.4 Chronic kidney disease, stage 4 (severe); D62 Acute posthemorrhagic anemia; K56.7 Ileus, unspecified; I47.20 Ventricular tachycardia, unspecified; E87.0 Hyperosmolality and hypernatremia; E87.1 Hypo-osmolality and hyponatremia; K56.609 Unspecified intestinal obstruction, unspecified as to partial versus complete obstruction; E87.20 Acidosis, unspecified; J44.0 Chronic obstructive pulmonary disease with (acute) lower respiratory infection; N39.0 Urinary tract infection, site not specified; Z51.5 Encounter for palliative care; Z66 Do not resuscitate; E87.5 Hyperkalemia; E11.649 Type 2 diabetes mellitus with hypoglycemia without coma; I25.10 Atherosclerotic heart disease of native coronary artery without angina pectoris; E78.2 Mixed hyperlipidemia; D63.1 Anemia in chronic kidney disease; D72.10 Eosinophilia, unspecified; K80.20 Calculus of gallbladder without cholecystitis without obstruction; R14.0 Abdominal distension (gaseous); Z79.82 Long term (current) use of aspirin; Z79.899 Other long term (current) drug therapy; K42.9 Umbilical hernia without obstruction or gangrene; K29.70 Gastritis, unspecified, without bleeding; Z95.3 Presence of xenogenic heart valve; Z99.81 Dependence on supplemental oxygen; M10.9 Gout, unspecified; K59.09 Other constipation; J30.2 Other seasonal allergic rhinitis; K21.9 Gastro-esophageal reflux disease without esophagitis; E11.22 Type 2 diabetes mellitus with diabetic chronic kidney disease; L89.152 Pressure ulcer of sacral region, stage 2; N28.1 Cyst of kidney, acquired; Z79.01 Long term (current) use of anticoagulants; I48.0 Paroxysmal atrial fibrillation; G47.00 Insomnia, unspecified; I72.8 Aneurysm of other specified arteries; F03.90 Unspecified dementia, unspecified severity, without behavioral disturbance, psychotic disturbance, mood disturbance, and anxiety; E11.65 Type 2 diabetes mellitus with hyperglycemia; K31.89 Other diseases of stomach and duodenum; R94.5 Abnormal results of liver function studies; R74.01 Elevation of levels of liver transaminase levels; R13.19 Other dysphagia

== ENCOUNTER → 2023-03-30 | Outpatient (REF) | payer MEDICARE, MEDICAID ==
[~2023-03-30] MED LIST changes: +ACET-897 PO; +AMLO1TAB25 PO; +ATOR80TA59 PO; +BUDE0.5S6 INH; +CARV3.12 PO; +CETI-24 PO; +COLC0.6T47 PO; +DOXE25CA PO; +FERR32TA PO; +FOLI1TAB11 PO; +FURO80TA2 PO; +MAGN1TAB26 PO; +META0.52 PO; +OMEG10002 PO; +POTA-298 PO; +PRES10CA2 PO; +SPIR1AER INH; +TEMO0.0517 TOP; +VITA400C83 PO; +WARF4TAB52 PO
== END ==
LOC: M SFHCADAM 12:01
PROVIDERS: ATTEND Physician Assistant
DX: D68.9 Coagulation defect, unspecified (principal)